=== PATIENT | female | born 1975 | race Two or more races ===

== ENCOUNTER 2023-06-17 20:59 | Outpatient (REF) | payer OTHER, SELFPAY ==
[2023-06-20 10:14] LABS: Age Gdln ACOG Testing Note (.); HPV Aptima Negative (Negative); IGP, Aptima HPV, rfx 16/18,45 Note (.)
== END 2023-06-17 21:00 | disposition home or self-care (01) ==
LOC: LAB 20:59
PROVIDERS: Visit Provider Obstetrics & Gynecology
DX: Z12.4 Encounter for screening for malignant neoplasm of cervix (principal)
CPT/HCPCS: 87624; G0145

== ENCOUNTER 2023-06-25 13:24 | Outpatient (OUT) | payer OTHER, SELFPAY ==
--- NOTE | 2023-06-25 13:28 | MM_ITS ---
Patient: MANJINDER BOB Exam Date: 06/25/2023 : 1975 Gender:F Ordering : DR Parminder Cohen . Admission #: [id number] Family : Non-Staff Physician Order #: [id number] CLICK HERE TO VIEW EXAM RADIOLOGY REPORT PROCEDURE: MM TOMOSYNTHESIS SCREENING BI COMPARISON: MG MAMM SCREEN 3D MYKE CAD, 06/19/2022. MG MAMM SCREEN MYKE W CAD, 03/31/2021. INDICATIONS: Z12.31 Calculator Name NCI Breast Cancer Risk Assessment Tool 5 Year Breast Cancer Risk 0.80% Lifetime Breast Cancer Risk 9.30% Personal Breast Cancer No Personal Ovarian Cancer No Treatments None Family Cancers Aunt-maternal with breast cancer at age 43. LOCATION: [facility] BREAST COMPOSITION: Heterogeneously dense,which may obscure small masses. FINDINGS: DIAGNOSTIC CATEGORY 1--NEGATIVE. RIGHT BREAST: No significant suspicious finding. No significant change has occurred. LEFT BREAST: No significant suspicious finding. No significant change has occurred. RECOMMENDATIONS: ROUTINE MAMMOGRAM AND CLINICAL EVALUATION IN 12 MONTHS. PLEASE NOTE: A NORMAL MAMMOGRAM DOES NOT EXCLUDE THE POSSIBILITY OF BREAST CANCER. A CLINICALLY SUSPICIOUS PALPABLE LUMP SHOULD BE BIOPSIED. Dictated by: Jw Howard M.D. on 06/25/2023 at 15:03 Approved by: Jw Howard M.D. on 06/25/2023 at 15:14
== END 2023-06-25 13:25 | disposition home or self-care (01) ==
LOC: MAMMO 13:24
PROVIDERS: Visit Provider Obstetrics & Gynecology
DX: Z12.31 Encounter for screening mammogram for malignant neoplasm of breast (principal); Z80.3 Family history of malignant neoplasm of breast
CPT/HCPCS: 77063; 77067

== ENCOUNTER 2023-08-06 13:48 | Emergency (ER) | payer OTHER, SELFPAY ==
[2023-08-06 13:52] VITALS: BP 142/92; PULSE 107; RESP 18; TEMP 36.6; O2SAT 100; BMI 24.5
--- NOTE | 2023-08-06 14:04 | ED.EXTPRO1 ---
HPI - Extremity Problem General Chief complaint: Extremity Problem, Nontraumatic Stated complaint: LOWER EXTREMITY PAIN LEFT LEG Time Seen by Provider: 08/06/23 13:57 Source: patient Mode of arrival: Wheelchair Limitations: no limitations History of Present Illness HPI Narrative: 47-year-old female past medical history left-sided sciatica presents with worsening symptoms for the past week. She states that she fell a month ago and ever since has had this pain in her left lower back that radiates down her leg. She went to her family doctor a week ago and was placed on diclofenac without any relief and then he called her in a Medrol Dosepak and still no relief. Hurts worse with movement. Pain radiates all the way down to her foot. denies hx CA or IVDU. denies bowel or bladder incontinence. denies fever, abd pain, dysuria. denies BLE swelling, temp or sensation changes. Related Data Home Medications Medication Instructions Recorded Confirmed atomoxetine 80 mg capsule 80 mg PO Q24H 08/06/23 08/06/23 diclofenac sodium 75 mg 75 mg PO Q12H 08/06/23 08/06/23 tablet,delayed release methylprednisolone 4 mg tablets in mg 08/06/23 a dose pack Previous Rx's Medication Instructions Recorded hydrocodone 5 mg-acetaminophen 325 1 tab PO Q4H PRN pain 3 days #12 08/06/23 mg tablet tabs tizanidine 4 mg tablet (Zanaflex) 4 mg PO TID PRN muscle spasticity 08/06/23 5 days #15 tabs Allergies Allergy/AdvReac Type Severity Reaction Status Date / Time No Known Drug Allergies Allergy Verified 08/06/23 13:52 Review of Systems ROS Status of ROS 10 or more systems reviewed and unremarkable except as noted in history and below [facility] Social History Smoking status: Never smoker Exam Narrative Exam Narrative: General: alert, no distress, talking in full an complete sentences skin: warm, dry, intact head: normocephalic, atraumatic eyes: EOMI, normal conjunctiva nose: nares patent neck: supple, trachea midline respiratory: non-labored extremities: FROM x 4, strength +5/5, capillary refill intact spine: Tender to left SI joint area, decreased range of motion due to pain, no step offs, no vertebral tenderness neuro: A&Ox3, sensory intact psych: appropriate mood and affect, cooperative Constitutional Vital Signs, click to edit/add: Last Vital Signs Temp 98 F 08/06/23 13:52 Pulse 90 08/06/23 14:23 Resp 18 08/06/23 14:23 BP 136/79 08/06/23 14:23 Pulse Ox 98 08/06/23 14:23 O2 Del Method Room Air 08/06/23 13:52 Course Vital Signs Vital signs: Vital Signs Temperature 98 F 08/06/23 13:52 Pulse Rate 107 H 08/06/23 13:52 Respiratory Rate 18 08/06/23 13:52 Blood Pressure 142/92 H 08/06/23 13:52 Pulse Oximetry 100 08/06/23 13:52 Oxygen Delivery Method Room Air 08/06/23 13:52 Temperature 98 F 08/06/23 13:52 Pulse Rate 90 08/06/23 14:23 Respiratory Rate 18 08/06/23 14:23 Blood Pressure 136/79 08/06/23 14:23 Pulse Oximetry 98 08/06/23 14:23 Oxygen Delivery Method Room Air 08/06/23 13:52 MDM - Extremity (Nontraumatic) MDM Narrative Medical decision making narrative: Likely sciatica and she is medicated with Dilaudid. Upon recheck, she states that she did get a moderately for pain and will be given another dose prior to discharge along with a prescription for Riner and Zanaflex. She is instructed to not take the Riner and Zanaflex together. She is to continue the Medrol Dosepak. F/u with PCP. afebrile, not tachypneic, not tachycardic, tolerating p.o., not hypoxic, non toxic appearing and ambulating at baseline and hemodynamically stable to be d/c. answered all questions. educated on SE of meds. pt in agreement with tx. educated when to return to ER. Discharge Plan Discharge Chief Complaint: Extremity Problem, Nontraumatic Clinical Impression: Radiculopathy Qualifiers: Spinal region: lumbosacral Qualified Code(s): M54.17 - Radiculopathy, lumbosacral region Patient Disposition: Home, Self-Care Condition: Good Mode of Transportation: Private Vehicle Prescriptions / Home Meds: New tizanidine [Zanaflex] 4 mg tablet 4 mg PO TID PRN (Reason: muscle spasticity) 5 Days Qty: 15 0RF hydrocodone-acetaminophen 5-325 mg tablet 1 tab PO Q4H PRN (Reason: pain) 3 Days Qty: 12 0RF No Action atomoxetine 80 mg capsule 80 mg PO Q24H diclofenac sodium 75 mg tablet,delayed release (DR/EC) 75 mg PO Q12H methylprednisolone 4 mg tablets,dose pack Instructions: Back Pain (ED) Additional Instructions: Do not take Riner and Zanaflex together as this can make you drowsy Stand Alone Forms: Portal Instructions Referrals: Physician,Non-Staff, MD [Primary Care Provider] - 1 week
[2023-08-06] MEDS: HYDROMORPHONE HCL 0.5 MG/0.5 ML SYRINGE IM ×2 (14:08→14:32)
[2023-08-06 14:23] VITALS: BP 136/79; PULSE 90; RESP 18; O2SAT 98
== END 2023-08-06 14:48 | disposition home or self-care (01) ==
PROVIDERS: Emergency Provider Emergency Medicine
DX: M54.17 Radiculopathy, lumbosacral region (principal)
CPT/HCPCS: 96372; 99284; J1170

== ENCOUNTER 2023-08-19 07:49 | Outpatient (OUT) | payer OTHER, SELFPAY ==
--- NOTE | 2023-08-19 08:00 | MR_ITS ---
[address] [address] Patient Name: MANJINDER BOB MRN: [id number] date: 1975 Sex: F Assigned Patient Location: MRI Current Patient Location: Accession/Order Number: [id number] Exam Date: 08/19/2023 08:07 Report Date: 08/19/2023 09:29 At the request of: SAUL LIZ Procedure: MR hip LT wo con EXAM: MR hip LT wo con REASON FOR EXAM: Degenerative Tear Of Acetabular Of Left Hip M24.152. TECHNIQUE: Multiplanar, multisequence imaging of the left hip was performed without contrast COMPARISON: No recent relevant imaging. FINDINGS: Study mildly degraded by motion. On small [id number]-dv-[id number] imaging of the left hip, left femur is well seated within the acetabulum. No fracture or AVN identified. There is mild perceived bony overgrowth of the superior lateral femoral head neck junction. No detached labral tear identified. Diminutive appearance of the anterior labrum potentially reflects labral degeneration. No high-grade chondrosis. No subchondral marrow changes. Trace effusion. Mild proximal left hamstring tendinosis. Tendinosis and low-grade partial tearing of the left gluteus medius insertion at the greater trochanter. No evidence of bursitis. The remaining left hip regional musculature is unremarkable. On large abiqz-xy-ccpf imaging, the bone marrow signal is heterogeneous, favoring to represent red marrow reconversion. Mild loss of normal intervertebral disc space height and signal at the L4-L5 level, incompletely characterized. The sacroiliac joints are congruent with mild joint space narrowing. The pubic symphysis is congruent. The right femur is well seated within the acetabulum without fracture or AVN. Tendinosis and low-grade partial tearing of the] gluteus medius insertion. The remaining right hip regional musculature is without muscle strain or tendon tear. Limited evaluation the pelvic viscera is without acute or suspicious abnormality. There is a left ovarian cyst or dominant follicle. MR/MR hip LT wo con IMPRESSION: 1. Mild perceived bony overgrowth of the superior lateral femoral head neck junction of the left hip with probable degenerative tearing of the anterior labrum. No detached labral tear identified. No fracture, AVN or high-grade chondrosis identified. 2. Bilateral gluteus medius insertional tendinosis with low-grade partial tearing. A complete rupture not identified. 3. Mild sacroiliac osteoarthritis. Electronically authenticated by: LEANDRO SILVERIO Date: 08/19/2023 09:29
--- OUTSIDE RECORDS SUMMARY | 2023-09-24 17:37 | XMS_ITS | CCD ---
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 Name Role Phone Samir Spain Attending Unavailable House, Bacilio Primary Care Unavailable ALBARO ., DR BARRETO Consulting Unavailable HOUSE, DR HUGHES Primary Care Unavailable ALBARO ., DR BARRETO Attending Unavailable ALBARO ., DR BARRETO Admitting Unavailable AMALIA, CYRUS Consulting Unavailable HOUSE, DR HUGHES Primary Care Unavailable ALBARO ., DR BARRETO Attending Unavailable ALBARO ., DR BARRETO Admitting Unavailable ALBARO ., DR BARRETO Consulting Unavailable ZiebJw shepard Consulting Unavailable ALBARO ., DR BARRETO Consulting Unavailable HOUSE, DR HUGHES Primary Care Unavailable ALBARO ., DR BARRETO Attending Unavailable ALBARO ., DR BARRETO Admitting Unavailable ZiebJw shepard Consulting Unavailable ALBARO ., DR BARRETO Consulting Unavailable HOUSE, DR HUGHES Primary Care Unavailable ALBARO ., DR BARRETO Attending Unavailable ALBARO ., DR BARRETO Admitting Unavailable DONNA, HARSH Consulting Unavailable KUCHIPUDI, SUMIT Consulting Unavailable CLEVELAND, DR HUGHES Primary Care Unavailable ALBARO ., DR BARRETO Attending Unavailable ALBARO ., DR BARRETO Admitting Unavailable ALBARO ., DR BARRETO Consulting Unavailable HOUSE, DR HUGHES Primary Care Unavailable ALBARO ., DR BARRETO Attending Unavailable ALBARO ., DR BARRETO Admitting Unavailable ALBARO ., DR BARRETO Consulting Unavailable C[place], DR HUGHES Primary Care Unavailable ALBARO ., DR BARRETO Attending Unavailable ALBARO ., DR BARRETO Admitting Unavailable ALBARO ., DR BARRETO Consulting Unavailable HOUSE, DR HUGHES Primary Care Unavailable ALBARO ., DR BARRETO Attending Unavailable ALBARO ., DR BARRETO Admitting Unavailable DONNA, HARSH Consulting Unavailable GEMBUS, EVANS Consulting Unavailable CLEVELAND, DR HUGHES Consulting Unavailable CLEVELAND, DR HUGHES Primary Care Unavailable HOUSE, DR HUGHES Attending Unavailable HOUSE, DR HUGHES Admitting Unavailable Florin MARTIN, Evans Hinds Attending Unavailable HOUSE, BACILIO Coppola Primary Care Unavailable HOUSE, BACILIO Coppola Primary Care Unavailable Florin MARTIN, Evans Hinds Attending Unavailable HOUSE, BACILIO P Primary Care Unavailable HOUSE, BACILIO P Attending Unavailable HOUSE, BACILIO P Primary Care Unavailable HOUSE, BACILIO P Attending Unavailable HOUSE, BACILIO P Admitting Unavailable HOUSE, BACILIO P Primary Care Unavailable Florin MARTIN, Evans Hinds Attending Unavailable Problems Active Problems Problem Classification Problem Date Documented Da te Episodic/Chronic Anxiety disorders (1 source) Anxiety disorder, unspecified; Translations: [ANXIETY DISORDER UNSPECIFIED] Onset: 03-02-2022 Chronic Esophageal disorders (1 source) Gastro-esophageal reflux disease without esophagitis; Translations: [GERD WITHOUT ESOPHAGITIS] Onset: 07-12-2022 Chronic Essential hypertension (1 source) Essential (primary) hypertension; Translations: [ESSENTIAL PRIMARY HYPERTENSION] Onset: 03-02-2022 Chronic Menstrual disorders (6 sources) Dysmenorrhea, unspecified; Translations: [Excessive and frequent menstruation with regular cycle] Onset: 07-06-2022 Chronic Other female genital disorders (5 sources) Abnormal uterine and vaginal bleeding, unspecified; Translations: [ABNORMAL UTERINE VAGINAL BLEED UNS] Onset: 08-24-2022 Chronic Other female genital disorders (1 source) Mittelschmerz; Translations: [MITTELSCHMERZ] Onset: 09-27-2022 Chronic Other screening for suspected conditions (not mental disorders or infectious disease) (1 source) Abnormal findings on diagnostic imaging of other specified body structures; Translations: [ABNORML FIND DX IMG OTH BODY STRUC] Onset: 08-24-2022 Chronic Thyroid disorders (5 sources) Hypothyroidism, unspecified; Translations: [HYPOTHYROIDISM UNSPECIFIED] Onset: 02-28-2022 Chronic Unclassified (4 sources) CONTACT W/AND (SUSP) EXPOS COVID-19; Translations: [CONTACT W/AND (SUSP) EXPOS COVID-19] Onset: 07-07-2022 Past or Other Problems Problem Classification Problem Date Documented Date Episodic/Chronic Abdominal hernia (1 source) Diaphragmatic hernia without obstruction or gangrene; Translations: [DIAPH HERNIA W/O OBST/GANGRENE] Onset: 07-12-2022 Episodic Abdominal pain (2 sources) Pelvic and perineal pain; Translations: [Unspecified abdominal pain] Onset: 08-24-2022 Episodic Deficiency and other anemia (1 source) Anemia, unspecified; Translations: [ANEMIA UNSPECIFIED] Onset: 09-27-2022 Episodic Immunizations and screening for infectious disease (1 source) Encounter for screening for human papillomavirus (HPV); Translations: [ENC SCREENING HUMAN PAPILLOMAVIRUS] Onset: 05-31-2022 Episodic Other aftercare (1 source) Other correction (current) drug therapy; Translations: [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] Onset: 09-27-2022 Episodic Other female genital disorders (1 source) Other specified noninflammatory disorders of cervix uteri; Translations: [OTH SPEC NONINFLAMM D/O CERV UTERI] Onset: 09-27-2022 Episodic Other female genital disorders (1 source) Polyp of corpus uteri; Translations: [POLYP OF CORPUS UTERI] Onset: 09-27-2022 Episodic Other female genital disorders (1 source) Other noninflammatory disorders of ovary, fallopian tube and broad ligament; Translations: [OTH NONINFL D/O OVARY TUBE AND BRD LIG] Onset: 09-27-2022 Episodic Other screening for suspected conditions (not mental disorders or infectious disease) (8 sources) Encounter for screening mammogram for malignant neoplasm of breast; Translations: [Encounter for screening for malignant neoplasm of cervix] Onset: 05-29-2022 Episodic Ovarian cyst (4 sources) Other ovarian cyst, left side; Translations: [OTHER OVARIAN CYST LEFT SIDE] Onset: 06-26-2022 Episodic Residual codes; unclassified (1 source) Acquired absence of other specified parts of digestive tract; Translations: [ACQ ABSENCE OTH PART DIGESTV TRACT] Onset: 09-27-2022 Episodic Residual codes; unclassified (1 source) Family history of malignant neoplasm of breast; Translations: [FAMILY HX MALIG NEOPLASM OF BREAST] Onset: 06-24-2022 Episodic Unclassified (1 source) CONTACT W/AND (SUSP) EXPOS COVID-19; Translations: [CONTACT W/AND (SUSP) EXPOS COVID-19] Onset: 07-05-2022 Results Test Name Value Interpretation Reference Range Facil ity Outside Recordson 08-22-2023 Outside Records [id number]#1.00[facility] Patient Provided Health Data on 08-01-2023 Patient Provided Health Data [id number]#1.00[facility] Patient Handouton 07-15-2023 Patient Handout [id number]#1.00[facility] BUNon 08-25-2022 Urea nitrogen [Mass/Vol] 6.0 mg/dL Critically low 7.0-18. 0 [facility] Comment on above: Performed By: #### B UN, CREA #### [facility] [address] [place] [address] Dr. Cyn Hermosillo CBC AUTO DIFFon 08-25-2022 BASO # 0.1 103/ul Normal 0.0-0.1 [facility] Comment on above: Performed By: #### C BC #### [facility] [address] [place] [address] Dr. Cyn Hermosillo Basophils/100 WBC (Bld) 0.4 % Normal 0.2-2.0 [facility] Comment on above: Performed By: #### C BC #### [facility] [address] [place] [address] Dr. Cyn Hermosillo EO # 0.1 103/ul Normal 0.0-0.7 [facility] Comment on above: Performed By: #### C BC #### [facility] [address] [place] [address] Dr. Cyn Hermosillo Eosinophils/100 WBC (Bld) 0.4 % Critically low 0.9-7. 0 [facility] Comment on above: Performed By: #### C BC #### [facility] [address] [place] [address] Dr. Cyn Hermosillo Erythrocyte distribution wid th (RBC) [Ratio] 13.2 % Normal 11.0-15.0 [facility] Comment on above: Performed By: #### C BC #### [facility] [address] [place] [address] Dr. Cyn Hermosillo Hematocrit (Bld) [Volume fraction] 27.4 % Critically low 36.0-48.0 [facility] Comment on above: Performed By: #### C BC #### [facility] [address] [place] [address] Dr. Cyn Hermosillo Hemoglobin (Bld) [Mass/Vol] 9.2 g/dL Critically low 12.0 -16.0 [facility] Comment on above: Performed By: #### C BC #### [facility] [address] [place] [address] Dr. Cyn Hermosillo IG # 0.06 10e3/ul Critically high 0.00-0.03 [facility] Comment on above: Performed By: #### C BC #### [facility] [address] [place] [address] Dr. Cyn Hermosillo IG % 0.4 % Normal 0.0-0.5 [facility] Comment on above: Performed By: #### C BC #### [facility] [address] [place] [address] Dr. Cyn Hermosillo LYMPH # 2.6 103/ul Normal 1.2-3.8 [facility] Comment on above: Performed By: #### C BC #### [facility] [address] [place] [address] Dr. Cyn Hermosillo Lymphocytes/100 WBC (Bld) 17.8 % Critically low 20.5-6 0.0 [facility] Comment on above: Performed By: #### C BC #### [facility] [address] [place] [address] Dr. Cyn Hermosillo MANUAL DIFF REQ NO Normal [facility] Comment on above: Performed By: #### C BC #### [facility] [address] [place] [address] Dr. Cyn Hermosillo MCH (RBC) [Entitic mass] 30.0 pg Normal 26.7-34.0 [facility] Comment on above: Performed By: #### C BC #### [facility] [address] [place] [address] Dr. Cyn Hermosillo MCHC (RBC) [Mass/Vol] 33.6 g/dL Normal 29.9-35.2 [facility] Comment on above: Performed By: #### C BC #### [facility] [address] [place] [address] Dr. Cyn Hermosillo MCV (RBC) [Entitic vol] 89.3 fL Normal 81.0-99.0 [facility] Comment on above: Performed By: #### C BC #### [facility] [address] [address] [address] Cyn Hermosillo MONO # 0.9 103/ul Critically high 0.3-0.8 [facility] Comment on above: Performed By: #### C BC #### [facility] [address] [place] [address] Dr. Cyn Hermosillo Monocytes/100 WBC (Bld) 6.2 % Normal 1.7-12.0 [facility] Comment on above: Performed By: #### C BC #### [facility] [address] [place] [address] Dr. Cyn Hermosillo NEUT # 10.8 103/ul Critically high 1.4-6.5 [facility] Comment on above: Performed By: #### C BC #### [facility] [address] [place] [address] Dr. Cyn Hermosillo Neutrophils/100 WBC (Bld) 74.8 % Normal 43.0-75.0 [facility] Comment on above: Performed By: #### C BC #### [facility] [address] [place] [address] Dr. Cyn Hermosillo Platelet mean volume (Bld) [ Entitic vol] 12.4 fL Normal 9.5-13.5 [facility] Comment on above: Performed By: #### C BC #### [facility] [address] [place] [address] Dr. Cyn Hermosillo PLT 174 103/ul Normal 150-450 [facility] Comment on above: Performed By: #### C BC #### [facility] [address] [place] [address] Dr. Cyn Hermosillo RBC 3.07 106/ul Critically low 4.20-5.40 [facility] Comment on above: Performed By: #### C BC #### [facility] [address] [place] [address] Dr. Cyn Hermosillo WBC 14.5 103/ul Critically high 4.0-11.0 [facility] Comment on above: Performed By: #### C BC #### [facility] [address] [place] [address] Dr. Cyn Hermosillo CREATININEon 08-25-2022 Creatinine [Mass/Vol] 0.49 mg/dL Critically low 0.55-1.02 [facility] Comment on above: Performed By: #### B UN, CREA #### [facility] [address] [place] [address] Dr. Cyn Hermosillo EGFR-AF PALESTINIAN >60 Normal >=60 [facility] Comment on above: Performed By: #### B UN, CREA #### [facility] [address] [place] [address] Dr. Cyn Hermosillo EGFR-NON AF PALESTINIAN >60 Normal >=60 [facility] Comment on above: Performed By: #### B UN, CREA #### [facility] [address] [place] [address] Dr. Cyn Hermosillo PREG HCG QUALon 08-24-2022 , QUAL Negative Normal NEGATIVE [facility] Comment on above: Performed By: #### C MP, TSH #### [facility] [address] [place] [address] Dr. Cyn Hermosillo CBC AUTO DIFFon 08-21-2022 BASO # 0.1 103/ul Normal 0.0-0.1 [facility] Comment on above: Performed By: #### C MP, TSH #### [facility] [address] [place] [address] Dr. Cyn Hermosillo Basophils/100 WBC (Bld) 1.0 % Normal 0.2-2.0 [facility] Comment on above: Performed By: #### C MP, TSH #### [facility] [address] [place] [address] Dr. Cyn Hermosillo EO # 0.1 103/ul Normal 0.0-0.7 [facility] Comment on above: Performed By: #### C MP, TSH #### [facility] [address] [place] [address] Dr. Cyn Hermosillo Eosinophils/100 WBC (Bld) 0.7 % Critically low 0.9-7. 0 [facility] Comment on above: Performed By: #### C MP, TSH #### [facility] [address] [place] [address] Dr. Cyn Hermosillo Erythrocyte distribution wid th (RBC) [Ratio] 13.4 % Normal 11.0-15.0 [facility] Comment on above: Performed By: #### C MP, TSH #### [facility] [address] [place] [address] Dr. Cyn Hermosillo Hematocrit (Bld) [Volume fraction] 34.9 % Critically low 36.0-48.0 [facility] Comment on above: Performed By: #### C MP, TSH #### [facility] [address] [place] [address] Dr. Cyn Hermosillo Hemoglobin (Bld) [Mass/Vol] 11.4 g/dL Critically low 12.0 -16.0 [facility] Comment on above: Performed By: #### C MP, TSH #### [facility] [address] [place] [address] Dr. Cyn Hermosillo IG # 0.02 10e3/ul Normal 0.00-0.03 [facility] Comment on above: Performed By: #### C MP, TSH #### [facility] [address] [place] [address] Dr. Cyn Hermosillo IG % 0.2 % Normal 0.0-0.5 [facility] Comment on above: Performed By: #### C MP, TSH #### [facility] [address] [place] [address] Dr. Cyn Hermosillo LYMPH # 3.2 103/ul Normal 1.2-3.8 [facility] Comment on above: Performed By: #### C MP, TSH #### [facility] [address] [address] [address] Cyn Hermosillo Lymphocytes/100 WBC (Bld) 35.9 % Normal 20.5-60.0 [facility] Comment on above: Performed By: #### C MP, TSH #### [facility] [address] [address] [address] Cyn Hermosillo MANUAL DIFF REQ NO Normal [facility] Comment on above: Performed By: #### C MP, TSH #### [facility] [address] [place] [address] Dr. Cyn Hermosillo MCH (RBC) [Entitic mass] 29.2 pg Normal 26.7-34.0 [facility] Comment on above: Performed By: #### C MP, TSH #### [facility] [address] [place] [address] Dr. Cyn Hermosillo MCHC (RBC) [Mass/Vol] 32.7 g/dL Normal 29.9-35.2 [facility] Comment on above: Performed By: #### C MP, TSH #### [facility] [address] [place] [address] Dr. Cyn Hermosillo MCV (RBC) [Entitic vol] 89.3 fL Normal 81.0-99.0 [facility] Comment on above: Performed By: #### C MP, TSH #### [facility] [address] [place] [address] Dr. Cyn Hermosillo MONO # 0.7 103/ul Normal 0.3-0.8 [facility] Comment on above: Performed By: #### C MP, TSH #### [facility] [address] [place] [address] Dr. Cyn Hermosillo Monocytes/100 WBC (Bld) 8.2 % Normal 1.7-12.0 [facility] Comment on above: Performed By: #### C MP, TSH #### [facility] [address] [place] [address] Dr. Cyn Hermosillo NEUT # 4.8 103/ul Normal 1.4-6.5 [facility] Comment on above: Performed By: #### C MP, TSH #### [facility] [address] [place] [address] Dr. Cyn Hermosillo Neutrophils/100 WBC (Bld) 54.0 % Normal 43.0-75.0 [facility] Comment on above: Performed By: #### C MP, TSH #### [facility] [address] [place] [address] Dr. Cyn Hermosillo Platelet mean volume (Bld) [ Entitic vol] 11.9 fL Normal 9.5-13.5 [facility] Comment on above: Performed By: #### C MP, TSH #### [facility] [address] [place] [address] Dr. Cyn Hermosillo PLT 242 103/ul Normal 150-450 [facility] Comment on above: Performed By: #### C MP, TSH #### [facility] [address] [place] [address] Dr. Cyn Hermosillo RBC 3.91 106/ul Critically low 4.20-5.40 [facility] Comment on above: Performed By: #### C MP, TSH #### [facility] [address] [place] [address] Dr. Cyn Hermosillo WBC 8.9 103/ul Normal 4.0-11.0 [facility] Comment on above: Performed By: #### C MP, TSH #### [facility] [address] [place] [address] Dr. Cyn Hermosillo [facility] 08[facility]07 SARS-CoV-2 (COVID-19) RNA SHELLIE+probe Ql (Unsp spec) Not detected Normal NOT DETECTED [facility] Comment on above: Result Comment: This test is not yet approved or cleared by the [place] FDA. When there are no FDA-approved or cleared tests available, and other criteria are met, FDA can make tests available under an emergency access mechanism called an Emergency Use Authorization (EUA). The EUA for this test is supported by the Ribbon Sweat[employer] Operator of Health and Human Service's (HHS's) declaration that circumstances exist to justify the emergency use of in vitro diagnostics for the detection and/or diagnosis of the virus that causes COVID-19. This EUA will remain in effect (meaning this test can be used) for the duration of the COVID-19 declaration justifying emergency of IVDs, unless it is terminated or revoked by FDA (after which the test may no longer be used). When diagnostic testing is negative, the possibility of a false negative should be considered in the context of a patient's recent exposures and the presence of clinical signs and symptoms consistent with SARS-CoV-2. Performed By: #### C VDTBH #### [facility] [address] [place] [address] Dr. Cyn Hermosillo PROF CHEM 8 (BAS METB)on Anion gap [Moles/Vol] 9.6 mmol/L Normal [facility] Comment on above: Performed By: #### C MP, TSH #### [facility] [address] [place] [address] Dr. Cyn Hermosillo Calcium [Mass/Vol] 8.6 mg/dL Normal 8.5-10.1 [facility] Comment on above: Performed By: #### C MP, TSH #### [facility] [address] [place] [address] Dr. Cyn Hermosillo Chloride [Moles/Vol] 102 mmol/L Normal 98-107 [facility] Comment on above: Performed By: #### C MP, TSH #### [facility] [address] [place] [address] Dr. Cyn Hermosillo CO2 [Moles/Vol] 27.1 mmol/L Normal 21.0-32.0 [facility] Comment on above: Performed By: #### C MP, TSH #### [facility] [address] [place] [address] Dr. Cyn Hermosillo Creatinine [Mass/Vol] 0.46 mg/dL Critically low 0.55-1.02 [facility] Comment on above: Performed By: #### C MP, TSH #### [facility] [address] [place] [address] Dr. Cyn Hermosillo EGFR-AF PALESTINIAN >60 Normal >=60 [facility] Comment on above: Performed By: #### C MP, TSH #### [facility] [address] [address] [address] Cyn Hermosillo EGFR-NON AF PALESTINIAN >60 Normal >=60 [facility] Comment on above: Performed By: #### C MP, TSH #### [facility] [address] [address] [address] Cyn Hermosillo Glucose [Mass/Vol] 115 mg/dL Critically high 74-106 [facility] Comment on above: Performed By: #### C MP, TSH #### [facility] [address] [address] [address] Cyn Hermosillo Potassium [Moles/Vol] 3.7 mmol/L Normal 3.5-5.1 [facility] Comment on above: Performed By: #### C MP, TSH #### [facility] [address] [address] [address] Cyn Hermosillo Sodium [Moles/Vol] 135 mmol/L Critically low 136-145 [facility] Comment on above: Performed By: #### C MP, TSH #### [facility] [address] [address] [address] Cyn Hermosillo Urea nitrogen [Mass/Vol] 15.0 mg/dL Normal 7.0-18.0 [facility] Comment on above: Performed By: #### C MP, TSH #### [facility] [address] [address] [address] Cyn Hermosillo Urea nitrogen/Creatinine [Mass ratio] 32.6 mg/mg Normal [facility] Comment on above: Performed By: #### C MP, TSH #### [facility] [address] [address] [address] Cyn Hermosillo TYPE AND SCREENon 08-21-2022 TYPE AND SCREEN Negative Normal [facility] Comment on above: Performed By: #### C MP, TSH #### [facility] [address] [address] [address] Cyn Hermosillo CBC AUTO DIFFon 07-06-2022 BASO # 0.1 103/ul Normal 0.0-0.1 [facility] Comment on above: Performed By: #### C MP, TSH #### [facility] [address] [place] [address] Dr. Cyn Hermosillo Basophils/100 WBC (Bld) 0.7 % Normal 0.2-2.0 [facility] Comment on above: Performed By: #### C MP, TSH #### [facility] [address] [place] [address] Dr. Cyn Hermosillo EO # 0.1 103/ul Normal 0.0-0.7 [facility] Comment on above: Performed By: #### C MP, TSH #### [facility] [address] [place] [address] Dr. Cyn Hermosillo Eosinophils/100 WBC (Bld) 0.6 % Critically low 0.9-7. 0 [facility] Comment on above: Performed By: #### C MP, TSH #### [facility] [address] [place] [address] Dr. Cyn Hermosillo Erythrocyte distribution wid th (RBC) [Ratio] 13.2 % Normal 11.0-15.0 [facility] Comment on above: Performed By: #### C MP, TSH #### [facility] [address] [place] [address] Dr. Cyn Hermosillo Hematocrit (Bld) [Volume fraction] 34.3 % Critically low 36.0-48.0 [facility] Comment on above: Performed By: #### C MP, TSH #### [facility] [address] [place] [address] Dr. Cyn Hermosillo Hemoglobin (Bld) [Mass/Vol] 11.4 g/dL Critically low 12.0 -16.0 [facility] Comment on above: Performed By: #### C MP, TSH #### [facility] [address] [place] [address] Dr. Cyn Hermosillo IG # 0.04 10e3/ul Critically high 0.00-0.03 [facility] Comment on above: Performed By: #### C MP, TSH #### [facility] [address] [address] [address] Cyn Hermosillo IG % 0.4 % Normal 0.0-0.5 [facility] Comment on above: Performed By: #### C MP, TSH #### [facility] [address] [address] [address] Cyn Hermosillo LYMPH # 2.7 103/ul Normal 1.2-3.8 [facility] Comment on above: Performed By: #### C MP, TSH #### [facility] [address] [place] [address] Dr. Cyn Hermosillo Lymphocytes/100 WBC (Bld) 25.0 % Normal 20.5-60.0 [facility] Comment on above: Performed By: #### C MP, TSH #### [facility] [address] [place] [address] Dr. Cyn Hermosillo MANUAL DIFF REQ NO Normal [facility] Comment on above: Performed By: #### C MP, TSH #### [facility] [address] [place] [address] Dr. Cyn Hermosillo MCH (RBC) [Entitic mass] 30.2 pg Normal 26.7-34.0 [facility] Comment on above: Performed By: #### C MP, TSH #### [facility] [address] [place] [address] Dr. Cyn Hermosillo MCHC (RBC) [Mass/Vol] 33.2 g/dL Normal 29.9-35.2 [facility] Comment on above: Performed By: #### C MP, TSH #### [facility] [address] [place] [address] Dr. Cyn Hermosillo MCV (RBC) [Entitic vol] 91.0 fL Normal 81.0-99.0 [facility] Comment on above: Performed By: #### C MP, TSH #### [facility] [address] [place] [address] Dr. Cyn Hermosillo MONO # 0.7 103/ul Normal 0.3-0.8 [facility] Comment on above: Performed By: #### C MP, TSH #### [facility] [address] [address] [address] Cyn Hermosillo Monocytes/100 WBC (Bld) 6.8 % Normal 1.7-12.0 [facility] Comment on above: Performed By: #### C MP, TSH #### [facility] [address] [place] [address] Dr. Cyn Hermosillo NEUT # 7.2 103/ul Critically high 1.4-6.5 [facility] Comment on above: Performed By: #### C MP, TSH #### [facility] [address] [place] [address] Dr. Cyn Hermosillo Neutrophils/100 WBC (Bld) 66.5 % Normal 43.0-75.0 [facility] Comment on above: Performed By: #### C MP, TSH #### [facility] [address] [place] [address] Dr. Cyn Hermosillo Platelet mean volume (Bld) [ Entitic vol] 12.0 fL Normal 9.5-13.5 [facility] Comment on above: Performed By: #### C MP, TSH #### [facility] [address] [place] [address] Dr. Cyn Hermosillo PLT 219 103/ul Normal 150-450 [facility] Comment on above: Performed By: #### C MP, TSH #### [facility] [address] [place] [address] Dr. Cyn Hermosillo RBC 3.77 106/ul Critically low 4.20-5.40 [facility] Comment on above: Performed By: #### C MP, TSH #### [facility] [address] [place] [address] Dr. Cyn Hermosillo WBC 10.8 103/ul Normal 4.0-11.0 [facility] Comment on above: Performed By: #### C MP, TSH #### [facility] [address] [place] [address] Dr. Cyn Hermosillo PREG HCG QUALon 07-06-2022 , QUAL Negative Normal NEGATIVE [facility] Comment on above: Performed By: #### C MP, TSH #### [facility] [address] [place], [place] [address] Dr. Cyn Hermosillo Covid-19 PCR ([facility])on 06-08 SARS-CoV-2 (COVID-19) RNA SHELLIE+probe Ql (Unsp spec) Not detected Normal NOT DETECTED [facility] Comment on above: Result Comment: This test is not yet approved or cleared by the [place] FDA. When there are no FDA-approved or cleared tests available, and other criteria are met, FDA can make tests available under an emergency access mechanism called an Emergency Use Authorization (EUA). The EUA for this test is supported by the [employer] Operator of Health and Human Service's (HHS's) declaration that circumstances exist to justify the emergency use of in vitro diagnostics for the detection and/or diagnosis of the virus that causes COVID-19. This EUA will remain in effect (meaning this test can be used) for the duration of the COVID-19 declaration justifying emergency of IVDs, unless it is terminated or revoked by FDA (after which the test may no longer be used). When diagnostic testing is negative, the possibility of a false negative should be considered in the context of a patient's recent exposures and the presence of clinical signs and symptoms consistent with SARS-CoV-2. Performed By: #### C VDTB #### [facility] [address] [place], [place] [address] Dr. Cyn Hermosillo MRI PELVIS WO W CONon 2021 MRI PELVIS WO W CON EXAMINATION: MRI PEL VIS WO W CON HISTORY: Cyst of left ovary COMPARISON: Ultrasound pelvis 06/19/2022 TECHNIQUE: A comprehensive examination was performed utilizing a variety of imaging planes and imaging parameters to optimize visualization of suspected pathology. Images were obtained with and without Dotarem contrast. FINDINGS: UTERUS: Size is 9.2 x 6.4 x 4.7 cm with oval 1.7 cm circumscribed mass within the posterior wall favoring a leiomyoma. Endometrial thickness is at upper limits of normal, 14 mm. No appreciable mass or polyp. OVARIES: Right ovary contains several tiny follicles. Left ovary contains a 16 x 12 x 12 mm complex cyst along with several tiny follicles. CUL-DE-SAC: Normal. No fluid or mass. LYMPH NODES: Normal. No adenopathy. BLADDER: Normal. No focal wall thickening or mass. BONES: Normal. No bony lesion or fracture. OTHER: Negative. IMPRESSION: 1. Endometrial thickness is at upper limits of normal, but no appreciable mass, polyp, or suspicious findings to correspond to ultrasound findings. 2. Slightly irregular structure within left ovary most suggestive of a complex cyst. No abnormal enhancement or convincing mass. Electronically authenticated by: JW JOHN Date: 2022-06-26 12:06 Normal The [facility] MG MAMM SCREEN 3D MYKE CADon 06-19-2022 MG MAMM SCREEN 3D MYKE CAD Patient: MANJINDER BOB Exam Date: 06/19/2022 : 1975 Gender:F Ordering : DR MARY LOU COHEN . Admission #: [id number] Family : Order #: [id number] CLICK HERE TO VIEW EXAM RADIOLOGY REPORT PROCEDURE: MAMMOGRAM SCREENING 3D BILATERAL CAD COMPARISON: MG MAMM SCREEN MYKE W CAD, 03/31/2021. INDICATIONS: Screening mammography Calculator Name NCI Breast Cancer Risk Assessment Tool 5 Year Breast Cancer Risk 0.70% Lifetime Breast Cancer Risk 9.40% Personal Breast Cancer No Personal Ovarian Cancer No Treatments None Family Cancers Aunt-maternal with breast cancer at age 43. LOCATION: [facility] BREAST COMPOSITION: Heterogeneously dense,which may obscure small masses. FINDINGS: DIAGNOSTIC CATEGORY 2--BENIGN FINDING. NO CHANGE FROM COMPARISON. Scattered benign-appearing nodules are present. Scattered benign-appearing calcifications are present. Scattered benign-appearing lymph nodes are present. RIGHT BREAST: No significant suspicious finding. LEFT BREAST: No significant suspicious finding. RECOMMENDATIONS: ROUTINE MAMMOGRAM AND CLINICAL EVALUATION IN 12 MONTHS. PLEASE NOTE: A NORMAL MAMMOGRAM DOES NOT EXCLUDE THE POSSIBILITY OF BREAST CANCER. A CLINICALLY SUSPICIOUS PALPABLE LUMP SHOULD BE BIOPSIED. Dictated by: Cyrus Holland MD on 06/19/2022 at 13:45 Approved by: Cyrus Holland MD on 06/19/2022 at 13:46 Normal [facility] US PELVIS AND TRANSVAGon US PELVIS AND TRANSVAG EXAMINATION: US P RORY AND TRANSVAG HISTORY: Pelvic and perineal pain ; left pelvic pain for 4 months COMPARISON: Ultrasound pelvis 12/10/2019 TECHNIQUE: Transabdominal and transvaginal sonographic examination. FINDINGS: UTERUS: Stable 1.5 cm rounded heterogeneous hypoechoic mass within posterior myometrium favoring a leiomyoma. Uterus size: 9.1 x 5.0 x 5.9 cm ENDOMETRIUM: Abnormally thickened endometrium. Within posterior fundal endometrium is a geographic shaped 8 x 8 x 6 mm hypoechoic vascular structure/mass. Endometrial thickness: 23 mm RIGHT OVARY: Contains a 1.4 cm benign-appearing follicle/cyst. Duplex Doppler demonstrates normal waveform and flow; resistive index 0.3. Ovary size: 2.9 x 1.7 x 1.7 cm LEFT OVARY: Contains a 2.0 x 1.8 x 1.3 cm oval cystic structure with thickened oconnell with lobular margins. Duplex Doppler demonstrates normal waveform and flow; resistive index 0.5. Ovary size: 3.5 x 2.4 x 2.1 cm CUL-DE-SAC: Unremarkable. No significant free fluid. BLADDER: Unremarkable. OTHER: None. IMPRESSION: 1. Abnormal thickening of the endometrium (23 mm), with a geographic shape/spiculated, vascular mass within the posterior fundal endometrium of uncertain etiology but concerning for neoplasm. 2. Complex left ovarian cyst. There has been a chronic complex, heterogeneous cyst versus mass within left ovary, but this appears to represent more of a cyst on today's study with irregular oconnell than a mass. Consider follow-up ultrasound evaluation in 6 weeks to document stability versus change versus MRI of pelvis for further evaluation of findings in #1 and #2. Electronically authenticated by: JW JOHN Date: 2022-06-19 11:06 Normal The [facility] l PAP ACOG PANEL 2: 30 to 65on 06-04-2022 . . Normal [facility] Comment on above: Result Comment: Perf ormed at: BA Performed By: #### [id number] #### [facility] [address] [address] [address] Cyn Hermosillo Age Gdln ACOG Testing 30-65 Normal [facility] Comment on above: Performed By: #### [id number] #### [facility] [address] [place], [place] [address] Dr. Cyn Hermosillo DIAGNOSIS: Comment Normal [facility] Comment on above: Result Comment: NEGA TIVE FOR INTRAEPITHELIAL LESION OR MALIGNANCY. CELLULAR CHANGES ASSOCIATED WITH INFLAMMATION ARE PRESENT. Performed at: BA Performed By: #### [id number] #### [facility] [address] [place] [address] Dr. Cyn Hermosillo HPV Aptima Negative Normal Negative [facility] Comment on above: Result Comment: This nucleic acid amplification test detects fourteen high-risk HPV types (16,18,31,33,35,39,45,51,52,56,58,59,66,68) without differentiation. Performed at: =G Performed By: #### [id number] #### [facility] [address] [place] [address] Dr. Cyn Hermosillo Methodology: Comment Normal [facility] Comment on above: Result Comment: This liquid based ThinPrep(R) pap test was screened with the use of an image guided system. Performed at: WB Performed By: #### [id number] #### [facility] [address] [place] [address] Dr. Cyn Hermosillo Note: Comment Normal [facility] Comment on above: Result Comment: The Pap smear is a screening test designed to aid in the detection of premalignant and malignant conditions of the uterine cervix. It is not a diagnostic procedure and should not be used as the sole means of detecting cervical cancer. Both false-positive and false-negative reports do occur. . Performed at: WB Performed By: #### [id number] #### [facility] [address] [place] [address] Dr. Cyn Hermosillo Performed by: Comment Normal [facility] Comment on above: Result Comment: Ramos Leo, Contracting Specialist Performed at: BA Performed By: #### [id number] #### [facility] [address] [place] [address] Dr. Cyn Hermosillo Specimen adequacy: Comment Normal The [facility] Comment on above: Result Comment: Sati sfactory for evaluation. Endocervical and/or squamous metaplastic cells (endocervical component) are present. Performed at: BA Performed By: #### [id number] #### [facility] [address] [place] [address] Dr. Cyn Hermosillo T4 LABCORPon 03-02-2022 T4 [Mass/Vol] 8.2 ug/dL Normal 4.5-12.0 [facility] Comment on above: Performed By: #### T 4LC #### [facility] [address] [place] [address] Dr. Cyn Hermosillo CBC AUTO DIFFon 02-28-2022 BASO # 0.1 103/ul Normal 0.0-0.1 [facility] Comment on above: Performed By: #### C BC #### [facility] [address] [place] [address] Dr. Cyn Hermosillo Basophils/100 WBC (Bld) 0.7 % Normal 0.2-2.0 [facility] Comment on above: Performed By: #### C BC #### [facility] [address] [place] [address] Dr. Cyn Hermosillo EO # 0.1 103/ul Normal 0.0-0.7 [facility] Comment on above: Performed By: #### C BC #### [facility] [address] [place] [address] Dr. Cyn Hermosillo Eosinophils/100 WBC (Bld) 0.7 % Critically low 0.9-7. 0 [facility] Comment on above: Performed By: #### C BC #### [facility] [address] [place] [address] Dr. Cyn Hermosillo Erythrocyte distribution wid th (RBC) [Ratio] 13.3 % Normal 11.0-15.0 The [facility] Comment on above: Performed By: #### C BC #### [facility] [address] [place] [address] Dr. Cyn Hermosillo Hematocrit (Bld) [Volume fraction] 36.4 % Normal 3 6.0-48.0 [facility] Comment on above: Performed By: #### C BC #### [facility] [address] [place] [address] Dr. Cyn Hermosillo Hemoglobin (Bld) [Mass/Vol] 11.8 g/dL Critically low 12.0 -16.0 [facility] Comment on above: Performed By: #### C BC #### [facility] [address] [address] [address] Cyn Hermosillo IG # 0.03 10e3/ul Normal 0.00-0.03 [facility] Comment on above: Performed By: #### C BC #### [facility] [address] [address] [address] Cyn Hermosillo IG % 0.3 % Normal 0.0-0.5 [facility] Comment on above: Performed By: #### C BC #### [facility] [address] [place] [address] Dr. Cyn Hermosillo LYMPH # 3.2 103/ul Normal 1.2-3.8 [facility] Comment on above: Performed By: #### C BC #### [facility] [address] [place] [address] Dr. Cyn Hermosillo Lymphocytes/100 WBC (Bld) 32.7 % Normal 20.5-60.0 [facility] Comment on above: Performed By: #### C BC #### [facility] [address] [place] [address] Dr. Cyn Hermosillo MANUAL DIFF REQ NO Normal [facility] Comment on above: Performed By: #### C BC #### [facility] [address] [place] [address] Dr. Cyn Hermosillo MCH (RBC) [Entitic mass] 29.4 pg Normal 26.7-34.0 [facility] Comment on above: Performed By: #### C BC #### [facility] [address] [place] [address] Dr. Cyn Hermosillo MCHC (RBC) [Mass/Vol] 32.4 g/dL Normal 29.9-35.2 [facility] Comment on above: Performed By: #### C BC #### [facility] [address] [place] [address] Dr. Cyn Hermosillo MCV (RBC) [Entitic vol] 90.8 fL Normal 81.0-99.0 [facility] Comment on above: Performed By: #### C BC #### [facility] [address] [address] [address] Cyn Hermosillo MONO # 0.7 103/ul Normal 0.3-0.8 [facility] Comment on above: Performed By: #### C BC #### [facility] [address] [place] [address] Dr. Cyn Hermosilol Monocytes/100 WBC (Bld) 7.2 % Normal 1.7-12.0 [facility] Comment on above: Performed By: #### C BC #### [facility] [address] [place] [address] Dr. Cyn Hermosillo NEUT # 5.7 103/ul Normal 1.4-6.5 [facility] Comment on above: Performed By: #### C BC #### [facility] [address] [place] [address] Dr. Cyn Hermosillo Neutrophils/100 WBC (Bld) 58.4 % Normal 43.0-75.0 [facility] Comment on above: Performed By: #### C BC #### [facility] [address] [place] [address] Dr. Cyn Hermosillo Platelet mean volume (Bld) [ Entitic vol] 11.9 fL Normal 9.5-13.5 [facility] Comment on above: Performed By: #### C BC #### [facility] [address] [place] [address] Dr. Cyn Hermosillo PLT 217 103/ul Normal 150-450 [facility] Comment on above: Performed By: #### C BC #### [facility] [address] [place] [address] Dr. Cyn Hermosillo RBC 4.01 106/ul Critically low 4.20-5.40 [facility] Comment on above: Performed By: #### C BC #### [facility] [address] [place] [address] Dr. Cyn Hermosillo WBC 9.8 103/ul Normal 4.0-11.0 [facility] Comment on above: Performed By: #### C BC #### [facility] [address] [address] [address] Cyn Hermosillo PROF 14(COMP METB)on 022 Albumin [Mass/Vol] 3.6 g/dL Normal 3.4-5.0 [facility] Comment on above: Performed By: #### C MP, TSH #### [facility] [address] [address] [address] Cyn Hermosillo Albumin/Globulin [Mass ratio] 1.0 {ratio} Normal [facility] Comment on above: Performed By: #### C MP, TSH #### [facility] [address] [address] [address] Cyn Hermosillo ALP [Catalytic activity/Vol] 59 U/L Normal 46-116 [facility] Comment on above: Performed By: #### C MP, TSH #### [facility] [address] [address] [address] Cyn Hermosillo ALT [Catalytic activity/Vol] 16 U/L Normal 14-59 [facility] Comment on above: Performed By: #### C MP, TSH #### [facility] [address] [address] [address] Cyn Hermosillo Anion gap [Moles/Vol] 11.0 mmol/L Normal [facility] Comment on above: Performed By: #### C MP, TSH #### [facility] [address] [address] [address] Cyn Hermosillo AST [Catalytic activity/Vol] U/L Critically low 15- 37 [facility] Comment on above: Performed By: #### C MP, TSH #### [facility] [address] [address] [address] Cyn Hermosillo Bilirubin [Mass/Vol] 0.2 mg/dL Normal 0.2-1.0 [facility] Comment on above: Performed By: #### C MP, TSH #### [facility] [address] [address] [address] Cyn Hermosillo Calcium [Mass/Vol] 8.5 mg/dL Normal 8.5-10.1 [facility] Comment on above: Performed By: #### C MP, TSH #### [facility] [address] [address] [address] Cyn Hermosillo Chloride [Moles/Vol] 104 mmol/L Normal 98-107 [facility] Comment on above: Performed By: #### C MP, TSH #### [facility] [address] [address] [address] Cyn Hermosillo CO2 [Moles/Vol] 27.9 mmol/L Normal 21.0-32.0 [facility] Comment on above: Performed By: #### C MP, TSH #### [facility] [address] [address] [address] Cyn Hermosillo Creatinine [Mass/Vol] 0.49 mg/dL Critically low 0.55-1.02 [facility] Comment on above: Performed By: #### C MP, TSH #### [facility] [address] [address] [address] Cyn Hermosillo EGFR-AF PALESTINIAN >60 Normal >=60 [facility] Comment on above: Performed By: #### C MP, TSH #### [facility] [address] [address] [address] Cyn Hermosillo EGFR-NON AF PALESTINIAN >60 Normal >=60 [facility] Comment on above: Performed By: #### C MP, TSH #### [facility] [address] [address] [address] Cyn Hermosillo Globulin (S) [Mass/Vol] 3.7 g/dL Normal [facility] Comment on above: Performed By: #### C MP, TSH #### [facility] [address] [address] [address] Cyn Hermosillo Glucose [Mass/Vol] 109 mg/dL Critically high 74-106 [facility] Comment on above: Performed By: #### C MP, TSH #### [facility] [address] [address] [address] Cyn Hermosillo Potassium [Moles/Vol] 3.9 mmol/L Normal 3.5-5.1 [facility] Comment on above: Performed By: #### C MP, TSH #### [facility] [address] [place] [address] Dr. Cyn Hermosillo Protein [Mass/Vol] 7.3 g/dL Normal 6.4-8.2 [facility] Comment on above: Performed By: #### C MP, TSH #### [facility] [address] [place] [address] Dr. Cyn Hermosillo Sodium [Moles/Vol] 139 mmol/L Normal 136-145 [facility] Comment on above: Performed By: #### C MP, TSH #### [facility] [address] [place] [address] Dr. Cyn Hermosillo Urea nitrogen [Mass/Vol] 15.0 mg/dL Normal 7.0-18.0 [facility] Comment on above: Performed By: #### C MP, TSH #### [facility] [address] [place] [address] Dr. Cyn Hermosillo Urea nitrogen/Creatinine [Mass ratio] 30.6 mg/mg Normal [facility] Comment on above: Performed By: #### C MP, TSH #### [facility] [address] [place] [address] Dr. Cyn Hermosillo TSHon 02-28-2022 TSH 0.399 uIU/mL Normal 0.358-3.740 [facility] Comment on above: Performed By: #### C MP, TSH #### [facility] [address] [place] [address] Dr. Cyn Hermosillo TSH RANGE SEE BELOW Normal [facility] Comment on above: Result Comment: <0.3 4 UIU/ml HYPERTHYROID 0.34-5.60 UIU/ml EUTHYROID >5.60 UIU/ml HYPOTHYROID Performed By: #### C MP, TSH #### [facility] [address] [place] [address] Dr. Cyn Hermosillo Complete Blood Count Auto Di ffon 11-04-2018 Basophils #/vol (Bld) 0.1 10*3/uL Normal 0.0-0.2 [facility] Comment on above: Order Comment: FAX R ESULTS TO [phone] Result Comment: PERF ORMED BY: [place] [id number] PATHOLOGIST SURGERY SCHEDULING COORDINATOR MAITE ROMAN M.D. Performed By: #### C BC #### [address] Basophils/100 WBC (Bld) 0.9 % Normal . [facility] Comment on above: Order Comment: FAX R ESULTS TO [phone] Performed By: #### C BC #### [address] Eosinophils #/vol (Bld) 0.1 10*3/uL Normal 0.0-0.45 [facility] Comment on above: Order Comment: FAX R ESULTS TO [phone] Performed By: #### C BC #### [address] Eosinophils/100 WBC (Bld) 1.2 % Normal . [facility] Comment on above: Order Comment: FAX R ESULTS TO [phone] Performed By: #### C BC #### [address] Erythrocyte distribution wid th Ratio (RBC) 13.2 % Normal 11.9-15.3 [facility] Comment on above: Order Comment: FAX R ESULTS TO [phone] Performed By: #### C BC #### [address] Hematocrit Volume Fraction (Bld) 36.0 % Normal 34.0-46.4 [facility] Comment on above: Order Comment: FAX R ESULTS TO [phone] Performed By: #### C BC #### [address] Hemoglobin mass conc (Bld) 12.5 g/dL Normal 11.8-15.4 [facility] Comment on above: Order Comment: FAX R ESULTS TO [phone] Performed By: #### C BC #### [facility] [address] [place] [address] Lymphocytes #/vol (Bld) 3.7 10*3/uL Normal 1.00-4.8 [facility] Comment on above: Order Comment: FAX R ESULTS TO [phone] Performed By: #### C BC #### [facility] [address] [place] [address] Lymphocytes/100 WBC (Bld) 37.6 % Normal . [facility] Comment on above: Order Comment: FAX R ESULTS TO [phone] Performed By: #### C BC #### [facility] [address] [place] [address] MCH Entitic mass (RBC) 31.6 pg Normal 24.7-34.3 [facility] Comment on above: Order Comment: FAX R ESULTS TO [phone] Performed By: #### C BC #### [facility] [address] [place] [address] MCH Entitic mass (RBC) 34.6 g/dL Normal 32.0-35.0 [facility] Comment on above: Order Comment: FAX R ESULTS TO [phone] Performed By: #### C BC #### [facility] [address] [place] [address] MCV Entitic volume (RBC) 91.1 fL Normal 80-100 [facility] Comment on above: Order Comment: FAX R ESULTS TO [phone] Performed By: #### C BC #### [facility] [address] [place] [address] Monocytes #/vol (Bld) 0.7 10*3/uL Normal 0.0-0.8 [facility] Comment on above: Order Comment: FAX R ESULTS TO [phone] Performed By: #### C BC #### [facility] [address] [place] [address] Monocytes/100 WBC (Bld) 7.5 % Normal . [facility] Comment on above: Order Comment: FAX R ESULTS TO [phone] Performed By: #### C BC #### [facility] [address] [place] [address] Neutrophils #/vol (Bld) 5.2 10*3/uL Normal 1.8-7.7 [facility] Comment on above: Order Comment: FAX R ESULTS TO [phone] Performed By: #### C BC #### [facility] [address] [place] [address] Neutrophils/100 WBC (Bld) 52.8 % Normal . [facility] Comment on above: Order Comment: FAX R ESULTS TO [phone] Performed By: #### C BC #### [address] Platelet mean volume Entitic volume (Bld) 10.2 fL Normal 6.3-10.7 [facility] Comment on above: Order Comment: FAX R ESULTS TO [phone] Performed By: #### C BC #### [facility] [address] [place] [address] Platelets #/vol (Bld) 244 10*3/uL Normal 150-450 [facility] Comment on above: Order Comment: FAX R ESULTS TO [phone] Performed By: #### C BC #### [facility] [address] [place] [address] RBC #/vol (Bld) 3.95 10*6/uL Normal 3.60-5.00 [facility] Comment on above: Order Comment: FAX R ESULTS TO [phone] Performed By: #### C BC #### [facility] [address] [place] [address] WBC #/vol (Bld) 9.9 10*3/uL Normal 3.8-11.6 [facility] Comment on above: Order Comment: FAX R ESULTS TO [phone] Performed By: #### C BC #### [address] [place] [address] [facility] Encounters Encounter Date Encounter Type Care Provider Facility Start: 08-22-2023 End: 08-23-2023 ambulatory Evans Catherine MD Facility:[facility] Start: 08-13-2023 End: 08-13-2023 ambulatory BACILIO LIZ Facility:[facility] Start: 08-08-2023 End: 08-09-2023 ambulatory BACILIO LIZ Facility:[facility] Start: 07-30-2023 End: 07-31-2023 ambulatory BACILIO LIZ Facility:[facility] Start: 07-12-2023 End: 07-13-2023 ambulatory BACILIO LIZ Facility:[facility] Start: 08-24-2022 Encounter for preprocedural laboratory examination DR MARY LOU COHEN . [facility] Start: 08-24-2022 End: 08-25-[address] MARY LOU COHEN . Facility:[facility] Start: 08-21-2022 End: 08-22-[address] MARY LOU COHEN . Facility:[facility] Start: 08-21-2022 End: 08-22-2022 Encounter for preprocedural laboratory examination DR MARY LOU COHEN . Facility:[facility] Start: 08-20-2022 Encounter for other preprocedural examination DR MARY LOU COHEN . [facility] Start: 08-16-2022 End: 08-17-[address] BACILIO LIZ Facility:[facility] Start: 08-16-2022 End: 08-17-2022 Encounter for other preprocedural examination DR BACILIO LIZ Facility:[facility] Start: 07-06-2022 End: 07-06-[address] MARY LOU COHEN . Facility:[facility] Start: 07-05-2022 End: 07-06-[address] MARY LOU COHEN . Facility:[facility] Start: 06-26-2022 End: 06-27-[address] MARY LOU COHEN . Facility:[facility] Start: 06-19-2022 End: 06-20-2022 ambulatory CYRUS HOLLAND Facility:[facility] Start: 05-29-2022 End: 05-29-[address] MARY LOU COHEN . Facility:[facility] Start: 02-28-2022 End: 03-01-[address] BACILIO LIZ Facility:[facility] Start: 11-04-2018 End: 11-04-2018 Patient encounter procedure Samir Spain Facility[facility] Payers Date Payer Category Payer Self-pay 2018 Unknown [id number] 1975 Unknown [id number] 2.16.84 [id number] 1977 Unknown [id number] 2.16.84 0.1.630544.3.579.2.593 1977 Unknown [id number] 2.16.84 0.1.354715.3.579.2.593 1977 Unknown [id number] 2.16.84 0.1.113899.3.579.2.593 1977 Unknown [id number] 2.16.84 0.1.893622.3.579.2.593 1977 Unknown [id number] 2.16.84 0.1.357812.3.579.2.593 1977 Unknown [id number] 2.16.84 0.1.688640.3.579.2.593 1977 Unknown [id number] 2.16.84 0.1.829066.3.579.2.593 1977 Unknown [id number] 2.16.84 0.1.341734.3.579.2.593 1977 Unknown [id number] 2.16.8 40.1.029591.3.579.2.718 1977 Unknown [id number] 2.16.8 40.1.408190.3.579.2.718 1977 Unknown [id number] 2.16.8 40.1.937538.3.579.2.718 1977 Unknown [id number] 2.16.8 40.1.961831.3.579.2.718 1977 Unknown [id number] 2.16.8 40.1.404562.3.579.2.8 1959 Unknown [id number] Unknown [id number] 2.16.840 .1.817055.3.579.2.531 Clinical Note 08-24-2022 Note Date & Type Note Facility 08-24-2022 Note OPERATIVE NOTE OPERATION DATE: 09/20/2022 PROCEDURE: Da Flako assisted laparoscopic hysterectomy, bilateral salpingectomy with cystoscopy. PREOPERATIVE DIAGNOSIS: Abnormal uterine bleeding, dysmenorrhea, pelvic pain, Mittelschmerz thickened endometrium. POSTOPERATIVE DIAGNOSIS: Abnormal uterine bleeding, dysmenorrhea, pelvic pain, Mittelschmerz thickened endometrium. ANESTHESIA: General. SURGEON: Mary Lou Cohen D.O. ELECTRONIC TEST TECHNICIAN: ESTEFANY Navarro URINE OUTPUT: Yellow and clear. BLOOD LOSS: 75 mL. SPECIMEN: Uterus and tubes. FINDINGS: Slightly enlarged uterus, normal appearing ovaries and tubes. No evidence of gross disease in the pelvis. PROCEDURE: The patient was taken back to the operating room, where she was prepped and draped in the normal sterile fashion after being placed in the dorsal lithotomy position. Patient's anesthesia was found to be adequate. Surgical timeout was performed using two patient identifiers. SCDs were on and in place. Two grams of Ancef were given prior to the surgery. Sterile Rodrigez catheter was inserted. Standard size VCare was secured to the uterine cervix and the surgeon changed gloves. Attention then was turned to the patient's abdomen, where a supraumbilical incision was then made. Two S retractors were used to identify the patient's fascia. The fascia was then tented up using Will clamps and the patient's fascia was incised sharply. Patient's abdomen was identified and entered bluntly. The patient had the trocar placed and a pneumoperitoneum was obtained. Approximately 4 liters of CO2 gas was used. The camera was then placed through the trocar. At this time, two robot trocars were placed in the patient's left and right side, two hand widths from the midline, and this was placed under direct visualization. The patient's tube on the right side was tended up and the vessel sealer was then used to come across the mesosalpinx, and this was carried down to the uterine ovarian ligament. The vessel sealer was carried down serially to the broad ligament, to the area of the bladder flap, which was then created anteriorly, and the uterine arteries were skeletonized and sealed using the vessel sealer. The colpotomy was made using the monopolar cautery on cut, and this was carried circumferentially, posteriorly to anteriorly, until the uterus was amputated. The specimen was then removed intact through the vagina, without difficulty. The vagina was then closed using two running V-Loc in a non-lock fashion. The robot was undocked. The abdomen was desufflated. The skin defects were closed using 4-0 Vicryl. Please note, the fascia was closed using 0 Vicryl. Sponge, lap and needle counts were correct x2. Patient was taken to recovery room in stable condition. The patient was awakened by Anesthesia first. Patient tolerated procedure well. [facility] Clinical Note 07-06-2022 Note Date & Type Note Facility 07-06-2022 Note OPERATIVE NOTE OPERATION DATE: 07/06/2022 PROCEDURE: D AND C hysteroscopy. PREOPERATIVE DIAGNOSIS: Menorrhagia, thickened endometrial lining. POSTOPERATIVE DIAGNOSIS: Menorrhagia, thickened endometrial lining. ANESTHESIA: General. SURGEON: Mary Lou Cohen D.O. ELECTRONIC TEST TECHNICIAN: None. BLOOD LOSS: 5 mL. FINDINGS: Normal fluffy appearing cavity. No gross evidence of polyps, fibroids or malignancy. Both ostia seen. SPECIMEN: Endometrial curettings. PROCEDURE: The patient was taken back to the Operating Room where she was prepped and draped in normal sterile fashion after being placed under general anesthesia without difficulty. She was also placed in the dorsal lithotomy position. A weighted speculum was placed in the patient's vagina. The anterior lip of the cervix was identified and grasped with a single tooth tenaculum. The patient's uterus was then sounded roughly to cm. The patient was then gently dilated using Hegar dilators. The hysteroscope was passed through the patient's cervix into the uterus. Both ostia were identified. Normal appearing endometrium. No gross evidence of polyps, fibroids or malignancy. The hysteroscope was then removed from the patient's uterus. At that point, gentle curettage was performed until a gritty texture was noted. The endometrial curettings were sent out to pathology. The single tooth tenaculum was then removed from the patient's anterior lip of the cervix where excellent hemostasis was noted. All instruments were removed from the patient's vagina. The patient tolerated the procedure well. Sponge, lap and needle counts were correct times two. The patient was taken to the Recovery Room in stable condition. [facility] Summary Purpose Family History No Family History Records FoundNo Family History Records FoundNo Family History Records Found Advance Directives No Advanced Directives Records FoundNo Advanced Directives Records FoundNo Advanced Directives Records Found Additional Source Comments INFORMATION SOURCE (unrecogn ized section and content) DATE CREATED AUTHOR 11/19/2018 [facility] DATE CREATED AUTHOR AUTHOR'S ORGANIZ ATION 02/19/2023 [facility] DATE CREATED AUTHOR AUTHOR'S ORGANIZ ATION 08/23/2023 [facility] FOR RECORDS PERTAINING TO PATIENTS WHO ARE OR HAVE BEEN ENROLLED IN A CHEMICAL DEPENDENCY/SUBSTANCEABUSE PROGRAM, SOME INFORMATION MAY BE OMITTED. This clinical summary was aggregated from multiple sources. Caution should be exercised in using it in the provision of clinical care. This summary normalizes information from multiple sources, and as a consequence, information in this document may materially change the coding, format and clinical context of patient data. In addition, data may be omitted in some cases. CLINICAL DECISIONS SHOULD BE BASED ON THE PRIMARY CLINICAL RECORDS. [employer] [facility]. provides no warranty or guarantee of the accuracy or completeness of information in this document.
== END 2023-08-19 07:50 | disposition home or self-care (01) ==
LOC: MRI 07:49
PROVIDERS: Visit Provider Family Medicine
DX: S73.192A Other sprain of left hip, initial encounter (principal); Z79.899 Other long term (current) drug therapy; W19.XXXA Unspecified fall, initial encounter; M24.152 Other articular cartilage disorders, left hip; M46.1 Sacroiliitis, not elsewhere classified
CPT/HCPCS: 73721; 96372; 99284

== ENCOUNTER 2023-08-19 09:09 | Emergency (ER) | payer OTHER, SELFPAY ==
[2023-08-19 09:15] VITALS: BP 157/98; PULSE 93; RESP 20; TEMP 36.7; O2SAT 100; BMI 24.5
[2023-08-19] MEDS: KETOROLAC TROMETHAMINE 60 MG/2 ML VIAL IM (09:39)
--- NOTE | 2023-08-19 09:56 | ED.GENADUL1 ---
HPI - General Adult General Chief complaint: Back Pain/Injury Stated complaint: LOWER EXTREMITY PAIN TO LEFT LEG Time Seen by Provider: 08/19/23 09:12 Source: patient Mode of arrival: Wheelchair Limitations: no limitations History of Present Illness HPI narrative: 47-year-old female presents for left hip and back pain. She had fallen about two months ago and went to a chiropractor and felt better. The pain came back. She states it severe and it hurts a great deal when she walks on it. No subsequent injury. No pain on the right side. she did not initially tell us that we were able to determine that she had an MRI of her hip today. Related Data Home Medications Medication Instructions Recorded Confirmed atomoxetine 80 mg capsule 80 mg PO Q24H 08/06/23 08/19/23 diclofenac sodium 75 mg 75 mg PO Q12H 08/06/23 08/06/23 tablet,delayed release methylprednisolone 4 mg tablets in mg 08/06/23 a dose pack gabapentin 300 mg capsule 300 mg PO BID 08/19/23 08/19/23 Previous Rx's Medication Instructions Recorded hydrocodone 5 mg-acetaminophen 325 1 tab PO Q4H PRN pain 3 days #12 08/06/23 mg tablet tabs tizanidine 4 mg tablet (Zanaflex) 4 mg PO TID PRN muscle spasticity 08/06/23 5 days #15 tabs hydrocodone 5 mg-acetaminophen 325 1 tab PO Q6H PRN pain 5 days #20 08/19/23 mg tablet tabs Allergies Allergy/AdvReac Type Severity Reaction Status Date / Time No Known Drug Allergies Allergy Verified 08/06/23 13:52 Review of Systems ROS Narrative A ten point review of systems is negative except as noted above. PFSH PFSH Social History Smoking status: Never smoker Exam Narrative Exam Narrative: Nurses note and vital signs reviewed and patient is not hypoxic. General: The patient appears uncomfortable Skin: Warm, dry, no pallor noted. There is no rash noted. Head: Normocephalic, atraumatic Eye: Normal conjunctiva, no drainage Ears, Nose, Mouth, and Throat: oral mucosa is moist. Nares patent. Cardiovascular: Regular Rate and Rhythm Respiratory: Patient is in no distress, no accessory muscle use, lungs are clear to auscultation, no wheezing, rales or rhonchi Back: non-tender, no bruise or rash GI: nontender Musculoskeletal: she has discomfort with range of motion of the left hip. The leg is not swollen. No calf tenderness. Neurological: A&O, normal speech Psychiatric: Cooperative Constitutional Vital Signs, click to edit/add: Last Vital Signs Temp 98.1 F 08/19/23 09:15 Pulse 93 H 08/19/23 09:15 Resp 20 08/19/23 09:15 BP 157/98 H 08/19/23 09:15 Pulse Ox 100 08/19/23 09:15 O2 Del Method Room Air 08/19/23 09:15 Course Vital Signs Vital signs: Vital Signs Temperature 98.1 F 08/19/23 09:15 Pulse Rate 93 H 08/19/23 09:15 Respiratory Rate 20 08/19/23 09:15 Blood Pressure 157/98 H 08/19/23 09:15 Pulse Oximetry 100 08/19/23 09:15 Oxygen Delivery Method Room Air 08/19/23 09:15 Temperature 98.1 F 08/19/23 09:15 Pulse Rate 93 H 08/19/23 09:15 Respiratory Rate 20 08/19/23 09:15 Blood Pressure 157/98 H 08/19/23 09:15 Pulse Oximetry 100 08/19/23 09:15 Oxygen Delivery Method Room Air 08/19/23 09:15 Medical Decision Making [facility] Narrative Medical decision making narrative: as it turns out the patient had an MRI today which shows a labral tear as well as a partial tear of the gluteus medius insertion. We are arranging for her see orthopedics. She is placed on crutches and provided pain medication. Treatment diagnosis and follow-up were discussed with the patient. 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 TECHNIQUE: Multiplanar, multisequence imaging of the left hip was performed without contrast COMPARISON: No recent relevant imaging. FINDINGS: Study mildly degraded by motion. On small xqazl-ac-egql imaging of the left hip, left femur is well seated within the acetabulum. No fracture or AVN identified. There is mild perceived bony overgrowth of the superior lateral femoral head neck junction. No detached labral tear identified. Diminutive appearance of the anterior labrum potentially reflects labral degeneration. No high-grade chondrosis. No subchondral marrow changes. Trace effusion. Mild proximal left hamstring tendinosis. Tendinosis and low-grade partial tearing of the left gluteus medius insertion at the greater trochanter. No evidence of bursitis. The remaining left hip regional musculature is unremarkable. On large ficzx-wv-icrm imaging, the bone marrow signal is heterogeneous, favoring to represent red marrow reconversion. Mild loss of normal intervertebral disc space height and signal at the L4-L5 level, incompletely characterized. The sacroiliac joints are congruent with mild joint space narrowing. The pubic symphysis is congruent. The right femur is well seated within the acetabulum without fracture or AVN. Tendinosis and low-grade partial tearing of the] gluteus medius insertion. The remaining right hip regional musculature is without muscle strain or tendon tear. Limited evaluation the pelvic viscera is without acute or suspicious abnormality. There is a left ovarian cyst or dominant follicle. IMPRESSION: 1. Mild perceived bony overgrowth of the superior lateral femoral head neck junction of the left hip with probable degenerative tearing of the anterior labrum. No detached labral tear identified. No fracture, AVN or high-grade chondrosis identified. 2. Bilateral gluteus medius insertional tendinosis with low-grade partial tearing. A complete rupture not identified. 3. Mild sacroiliac osteoarthritis. Electronically authenticated by: LEANDRO SILVERIO Date: 08/19/2023 09:29 Discharge Plan Discharge Chief Complaint: Back Pain/Injury Clinical Impression: Labral tear of hip joint Patient Disposition: Home, Self-Care Time of Disposition Decision: 10:03 Condition: Good Mode of Transportation: Private Vehicle Prescriptions / Home Meds: New hydrocodone-acetaminophen 5-325 mg tablet 1 tab PO Q6H PRN (Reason: pain) 5 Days Qty: 20 0RF No Action gabapentin 300 mg capsule 300 mg PO BID atomoxetine 80 mg capsule 80 mg PO Q24H diclofenac sodium 75 mg tablet,delayed release (DR/EC) 75 mg PO Q12H methylprednisolone 4 mg tablets,dose pack tizanidine [Zanaflex] 4 mg tablet 4 mg PO TID PRN (Reason: muscle spasticity) 5 Days Qty: 15 0RF hydrocodone-acetaminophen 5-325 mg tablet 1 tab PO Q4H PRN (Reason: pain) 3 Days Qty: 12 0RF Instructions: Crutch Instructions (ED), Hip Sprain (ED) Stand Alone Forms: Portal Instructions Referrals: Physician,Non-Staff, MD [Primary Care Provider] - 1 week
--- OUTSIDE RECORDS SUMMARY | 2023-09-24 18:53 | XMS_ITS | CCD ---
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 Role Phone Samir Spain Attending Unavailable [...] HARSH Consulting Unavailable KUCHIPUDI, SUMIT Consulting Unavailable LEBEAU, DR HUGHES Primary Care Unavailable ALBARO ., DR BARRETO Attending Unavailable ALBARO ., DR BARRETO Admitting Unavailable ALBARO ., DR BARRETO Consulting Unavailable HOUSE, DR HUGHES Primary Care Unavailable ALBARO ., DR BARRETO Attending Unavailable ALBARO ., DR BARRETO Admitting Unavailable ALBARO ., DR BARRETO Consulting Unavailable LEBEAU, DR HUGHES Primary Care Unavailable ALBARO ., DR BARRETO Attending Unavailable ALBARO ., DR BARRETO Admitting Unavailable ALBARO ., DR BARRETO Consulting Unavailable HOUSE, DR HUGHES Primary Care Unavailable ALBARO ., DR BARRETO Attending Unavailable ALBARO ., DR BARRETO Admitting Unavailable DONNA, HARSH Consulting Unavailable GEMBUS, EVANS Consulting Unavailable LEBEAU, DR HUGHES Consulting Unavailable LEBEAU, DR HUGHES Primary Care Unavailable HOUSE, DR [...] 05-31-2022 Episodic Other aftercare (1 source) Other fdc (current) drug therapy; Translations: [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 Patient Provided Health Data on 08-01-2023 Patient Provided Health Data [id number]#1.00[facility] Patient Handouton 07-15-2023 Patient Handout [id number]#1.00[facility] BUNon 08-25-2022 Urea nitrogen [Mass/Vol] 6.0 mg/dL Critically low 7.0-18. 0 [facility] Comment on above: Performed By: #### B UN, CREA #### [facility] [address] [place] [address] Dr. Cyn Hermosillo CBC AUTO DIFFon 08-25-2022 BASO # 0.1 103/ul Normal 0.0-0.1 [facility] Comment on above: Performed By: #### C BC #### [facility] [address] [place] [address] Dr. Cyn Hermosillo Basophils/100 WBC (Bld) 0.4 % Normal 0.2-2.0 [facility] Comment on above: Performed By: #### C BC #### [facility] [address] [place] [address] Dr. Cyn Hermosillo EO # 0.1 103/ul Normal 0.0-0.7 [facility] Comment on above: Performed By: #### C BC #### [facility] [address] [place] [address] Dr. Cyn Hermosillo Eosinophils/100 WBC (Bld) 0.4 % Critically low 0.9-7. 0 [facility] Comment on above: Performed By: #### C BC #### [facility] [address] [place] [address] Dr. Cyn Hermosillo Erythrocyte distribution wid th (RBC) [Ratio] 13.2 % Normal 11.0-15.0 [facility] Comment on above: Performed By: #### C BC #### [facility] [address] [place] [address] Dr. Cyn Hermosillo Hematocrit (Bld) [Volume fraction] 27.4 % Critically low 36.0-48.0 [facility] Comment on above: Performed By: #### C BC #### [facility] [address] [place] [address] Dr. Cyn Hermosillo Hemoglobin (Bld) [Mass/Vol] 9.2 g/dL Critically low 12.0 -16.0 [facility] [place] [facility] Comment on above: Performed By: #### C BC #### [facility] [address] [place] [address] Dr. Cyn Hermosillo IG # 0.06 10e3/ul Critically high 0.00-0.03 [facility] Comment on above: Performed By: #### C BC #### [facility] [address] [place] [address] Dr. Cyn Hermosillo IG % 0.4 % Normal 0.0-0.5 [facility] Comment on above: Performed By: #### C BC #### [facility] [address] [place] [address] Dr. Cyn Hermosillo LYMPH # 2.6 103/ul Normal 1.2-3.8 [facility] Comment on above: Performed By: #### C BC #### [facility] [address] [place] [address] Dr. Cyn Hermosillo Lymphocytes/100 WBC (Bld) 17.8 % Critically low 20.5-6 0.0 [facility] [place] [facility] Comment on above: Performed By: #### C BC #### [facility] [address] [place] [address] Dr. Cyn Hermosillo MANUAL DIFF REQ NO Normal [facility] Comment on above: Performed By: #### C BC #### [facility] [address] [place] [address] Dr. Cyn Hermosillo MCH (RBC) [Entitic mass] 30.0 pg Normal 26.7-34.0 [facility] Comment on above: Performed By: #### C BC #### [facility] [address] [place] [address] Dr. Cyn Hermosillo MCHC (RBC) [Mass/Vol] 33.6 g/dL Normal 29.9-35.2 [facility] Comment on above: Performed By: #### C BC #### [facility] [address] [place] [address] Dr. Cyn Hermosillo MCV (RBC) [Entitic vol] 89.3 fL Normal 81.0-99.0 [facility] Comment on above: Performed By: #### C BC #### [facility] [address] [address] [address] Cyn Hermosillo MONO # 0.9 103/ul Critically high 0.3-0.8 [facility] Comment on above: Performed By: #### C BC #### [facility] [address] [place] [address] Dr. Cyn Hermosillo Monocytes/100 WBC (Bld) 6.2 % Normal 1.7-12.0 [facility] Comment on above: Performed By: #### C BC #### [facility] [address] [place] [address] Dr. Cyn Hermosillo NEUT # 10.8 103/ul Critically high 1.4-6.5 [facility] Comment on above: Performed By: #### C BC #### [facility] [address] [place] [address] Dr. Cyn Hermosillo Neutrophils/100 WBC (Bld) 74.8 % Normal 43.0-75.0 [facility] Comment on above: Performed By: #### C BC #### [facility] [address] [place] [address] Dr. Cyn Hermosillo Platelet mean volume (Bld) [ Entitic vol] 12.4 fL Normal 9.5-13.5 [facility] Comment on above: Performed By: #### C BC #### [facility] [address] [place] [address] Dr. Cyn Hermosillo PLT 174 103/ul Normal 150-450 [facility] Comment on above: Performed By: #### C BC #### [facility] [address] [place] [address] Dr. Cyn Hermosillo RBC 3.07 106/ul Critically low 4.20-5.40 [facility] Comment on above: Performed By: #### C BC #### [facility] [address] [place] [address] Dr. Cyn Hermosillo WBC 14.5 103/ul Critically high 4.0-11.0 [facility] Comment on above: Performed By: #### C BC #### [facility] [address] [place] [address] Dr. Cyn Hermosillo CREATININEon 08-25-2022 Creatinine [Mass/Vol] 0.49 mg/dL Critically low 0.55-1.02 [facility] Comment on above: Performed By: #### B UN, CREA #### [facility] [address] [place] [address] Dr. Cyn Hermosillo EGFR-AF BULGARIAN >60 Normal >=60 [facility] Comment on above: Performed By: #### B UN, CREA #### [facility] [address] [place] [address] Dr. Cyn Hermosillo EGFR-NON AF BULGARIAN >60 Normal >=60 [facility] Comment on above: Performed By: #### B UN, CREA #### [facility] [address] [place] [address] Dr. Cyn Hermosillo PREG HCG QUALon 08-24-2022 , QUAL Negative Normal NEGATIVE [facility] Comment on above: Performed By: #### C MP, TSH #### [facility] [address] [place] [address] Dr. Cyn Hermosillo CBC AUTO DIFFon 08-21-2022 BASO # 0.1 103/ul Normal 0.0-0.1 [facility] Comment on above: Performed By: #### C MP, TSH #### [facility] [address] [place] [address] Dr. Cyn Hermosillo Basophils/100 WBC (Bld) 1.0 % Normal 0.2-2.0 [facility] Comment on above: Performed By: #### C MP, TSH #### [facility] [address] [place] [address] Dr. Cyn Hermosillo EO # 0.1 103/ul Normal 0.0-0.7 [facility] Comment on above: Performed By: #### C MP, TSH #### [facility] [address] [place] [address] Dr. Cyn Hermosillo Eosinophils/100 WBC (Bld) 0.7 % Critically low 0.9-7. 0 [facility] Comment on above: Performed By: #### C MP, TSH #### [facility] [address] [place] [address] Dr. Cyn Hermosillo Erythrocyte distribution wid th (RBC) [Ratio] 13.4 % Normal 11.0-15.0 [facility] Comment on above: Performed By: #### C MP, TSH #### [facility] [address] [place] [address] Dr. Cyn Hermosillo Hematocrit (Bld) [Volume fraction] 34.9 % Critically low 36.0-48.0 [facility] Comment on above: Performed By: #### C MP, TSH #### [facility] [address] [place] [address] Dr. Cyn Hermosillo Hemoglobin (Bld) [Mass/Vol] 11.4 g/dL Critically low 12.0 -16.0 [facility] Comment on above: Performed By: #### C MP, TSH #### [facility] [address] [place] [address] Dr. Cyn Hermosillo IG # 0.02 10e3/ul Normal 0.00-0.03 [facility] Comment on above: Performed By: #### C MP, TSH #### [facility] [address] [place] [address] Dr. Cyn Hermosillo IG % 0.2 % Normal 0.0-0.5 [facility] Comment on above: Performed By: #### C MP, TSH #### [facility] [address] [place] [address] Dr. Cyn Hermosillo LYMPH # 3.2 103/ul Normal 1.2-3.8 [facility] Comment on above: Performed By: #### C MP, TSH #### [facility] [address] [address] [address] Cyn Hermosillo Lymphocytes/100 WBC (Bld) 35.9 % Normal 20.5-60.0 [facility] Comment on above: Performed By: #### C MP, TSH #### [facility] [address] [address] [address] Cyn Hermosillo MANUAL DIFF REQ NO Normal [facility] Comment on above: Performed By: #### C MP, TSH #### [facility] [address] [place] [address] Dr. Cyn Hermosillo MCH (RBC) [Entitic mass] 29.2 pg Normal 26.7-34.0 [facility] Comment on above: Performed By: #### C MP, TSH #### [facility] [address] [place] [address] Dr. Cyn Hermosillo MCHC (RBC) [Mass/Vol] 32.7 g/dL Normal 29.9-35.2 [facility] Comment on above: Performed By: #### C MP, TSH #### [facility] [address] [place] [address] Dr. Cyn Hermosillo MCV (RBC) [Entitic vol] 89.3 fL Normal 81.0-99.0 [facility] Comment on above: Performed By: #### C MP, TSH #### [facility] [address] [place] [address] Dr. Cyn Hermosillo MONO # 0.7 103/ul Normal 0.3-0.8 [facility] Comment on above: Performed By: #### C MP, TSH #### [facility] [address] [place] [address] Dr. Cyn Hermosillo Monocytes/100 WBC (Bld) 8.2 % Normal 1.7-12.0 [facility] Comment on above: Performed By: #### C MP, TSH #### [facility] [address] [place] [address] Dr. Cyn Hermosillo NEUT # 4.8 103/ul Normal 1.4-6.5 [facility] Comment on above: Performed By: #### C MP, TSH #### [facility] [address] [place] [address] Dr. Cyn Hermosillo Neutrophils/100 WBC (Bld) 54.0 % Normal 43.0-75.0 [facility] Comment on above: Performed By: #### C MP, TSH #### [facility] [address] [place] [address] Dr. Cyn Hermosillo Platelet mean volume (Bld) [ Entitic vol] 11.9 fL Normal 9.5-13.5 [facility] Comment on above: Performed By: #### C MP, TSH #### [facility] [address] [place] [address] Dr. Cyn Hermosillo PLT 242 103/ul Normal 150-450 [facility] Comment on above: Performed By: #### C MP, TSH #### [facility] [address] [place] [address] Dr. Cyn Hermosillo RBC 3.91 106/ul Critically low 4.20-5.40 [facility] Comment on above: Performed By: #### C MP, TSH #### [facility] [address] [place] [address] Dr. Cyn Hermosillo WBC 8.9 103/ul Normal 4.0-11.0 [facility] Comment on above: Performed By: #### C MP, TSH #### [facility] [address] [place] [address] Dr. Cyn Hermosillo [facility] SARS-CoV-2 (COVID-19) RNA SHELLIE+probe Ql (Unsp spec) Not detected Normal NOT DETECTED [facility] Comment on above: Result Comment: This test is not yet approved or cleared by the [place] FDA. When there are no FDA-approved or cleared tests available, and other criteria are met, FDA can make tests available under an emergency access mechanism called an Emergency Use Authorization (EUA). The EUA for this test is supported by the Surveillance Director of Health and Human Service's (HHS's) declaration [...] SARS-CoV-2. Performed By: #### C VDTBH #### [facility] [address] [place] [address] Dr. Cyn Hermosillo PROF CHEM 8 (BAS METB)on Anion gap [Moles/Vol] 9.6 mmol/L Normal [facility] Comment on above: Performed By: #### C MP, TSH #### [facility] [address] [place] [address] Dr. Cyn Hermosillo Calcium [Mass/Vol] 8.6 mg/dL Normal 8.5-10.1 [facility] Comment on above: Performed By: #### C MP, TSH #### [facility] [address] [place] [address] Dr. Cyn Hermosillo Chloride [Moles/Vol] 102 mmol/L Normal 98-107 [facility] Comment on above: Performed By: #### C MP, TSH #### [facility] [address] [place] [address] Dr. Cyn Hermosillo CO2 [Moles/Vol] 27.1 mmol/L Normal 21.0-32.0 [facility] Comment on above: Performed By: #### C MP, TSH #### [facility] [address] [place] [address] Dr. Cyn Hermosillo Creatinine [Mass/Vol] 0.46 mg/dL Critically low 0.55-1.02 [facility] Comment on above: Performed By: #### C MP, TSH #### [facility] [address] [place] [address] Dr. Cyn Hermosillo EGFR-AF BULGARIAN >60 Normal >=60 [facility] Comment on above: Performed By: #### C MP, TSH #### [facility] [address] [address] [address] Cyn Hermosillo EGFR-NON AF BULGARIAN >60 Normal >=60 [facility] Comment on above: Performed By: #### C MP, TSH #### [facility] [address] [address] [address] Cyn Hermosillo Glucose [Mass/Vol] 115 mg/dL Critically high 74-106 [facility] Comment on above: Performed By: #### C MP, TSH #### [facility] [address] [address] [address] Cyn Hermosillo Potassium [Moles/Vol] 3.7 mmol/L Normal 3.5-5.1 [facility] Comment on above: Performed By: #### C MP, TSH #### [facility] [address] [address] [address] Cyn Hermosillo Sodium [Moles/Vol] 135 mmol/L Critically low 136-145 [facility] Comment on above: Performed By: #### C MP, TSH #### [facility] [address] [address] [address] Cyn Hermosillo Urea nitrogen [Mass/Vol] 15.0 mg/dL Normal 7.0-18.0 [facility] Comment on above: Performed By: #### C MP, TSH #### [facility] [address] [address] [address] Cyn Hermosillo Urea nitrogen/Creatinine [Mass ratio] 32.6 mg/mg Normal [facility] Comment on above: Performed By: #### C MP, TSH #### [facility] [address] [address] [address] Cyn Hermosillo TYPE AND SCREENon 08-21-2022 TYPE AND SCREEN Negative Normal [facility] Comment on above: Performed By: #### C MP, TSH #### [facility] [address] [address] [address] Cyn Hermosillo CBC AUTO DIFFon 07-06-2022 BASO # 0.1 103/ul Normal 0.0-0.1 [facility] Comment on above: Performed By: #### C MP, TSH #### [facility] [address] [place] [address] Dr. Cyn Hermosillo Basophils/100 WBC (Bld) 0.7 % Normal 0.2-2.0 [facility] Comment on above: Performed By: #### C MP, TSH #### [facility] [address] [place] [address] Dr. Cyn Hermosillo EO # 0.1 103/ul Normal 0.0-0.7 [facility] Comment on above: Performed By: #### C MP, TSH #### [facility] [address] [place] [address] Dr. Cyn Hermosillo Eosinophils/100 WBC (Bld) 0.6 % Critically low 0.9-7. 0 [facility] Comment on above: Performed By: #### C MP, TSH #### [facility] [address] [place] [address] Dr. Cyn Hermosillo Erythrocyte distribution wid th (RBC) [Ratio] 13.2 % Normal 11.0-15.0 [facility] Comment on above: Performed By: #### C MP, TSH #### [facility] [address] [place] [address] Dr. Cyn Hermosillo Hematocrit (Bld) [Volume fraction] 34.3 % Critically low 36.0-48.0 [facility] Comment on above: Performed By: #### C MP, TSH #### [facility] [address] [place] [address] Dr. Cyn Hermosillo Hemoglobin (Bld) [Mass/Vol] 11.4 g/dL Critically low 12.0 -16.0 [facility] Comment on above: Performed By: #### C MP, TSH #### [facility] [address] [place] [address] Dr. Cyn Hermosillo IG # 0.04 10e3/ul Critically high 0.00-0.03 [facility] Comment on above: Performed By: #### C MP, TSH #### [facility] [address] [address] [address] Cyn Hermosillo IG % 0.4 % Normal 0.0-0.5 [facility] Comment on above: Performed By: #### C MP, TSH #### [facility] [address] [address] [address] Cyn Hermosillo LYMPH # 2.7 103/ul Normal 1.2-3.8 [facility] Comment on above: Performed By: #### C MP, TSH #### [facility] [address] [place] [address] Dr. Cyn Hermosillo Lymphocytes/100 WBC (Bld) 25.0 % Normal 20.5-60.0 [facility] Comment on above: Performed By: #### C MP, TSH #### [facility] [address] [place] [address] Dr. yCn Hermosillo MANUAL DIFF REQ NO Normal [facility] Comment on above: Performed By: #### C MP, TSH #### [facility] [address] [place] [address] Dr. Cyn Hermosillo MCH (RBC) [Entitic mass] 30.2 pg Normal 26.7-34.0 [facility] Comment on above: Performed By: #### C MP, TSH #### [facility] [address] [place] [address] Dr. Cyn Hermosillo MCHC (RBC) [Mass/Vol] 33.2 g/dL Normal 29.9-35.2 [facility] Comment on above: Performed By: #### C MP, TSH #### [facility] [address] [place] [address] Dr. Cyn Hermosillo MCV (RBC) [Entitic vol] 91.0 fL Normal 81.0-99.0 [facility] Comment on above: Performed By: #### C MP, TSH #### [facility] [address] [place] [address] Dr. Cyn Hermosillo MONO # 0.7 103/ul Normal 0.3-0.8 [facility] Comment on above: Performed By: #### C MP, TSH #### [facility] [address] [address] [address] Cyn Hermosillo Monocytes/100 WBC (Bld) 6.8 % Normal 1.7-12.0 [facility] Comment on above: Performed By: #### C MP, TSH #### [facility] [address] [place] [address] Dr. Cyn Hermosillo NEUT # 7.2 103/ul Critically high 1.4-6.5 [facility] Comment on above: Performed By: #### C MP, TSH #### [facility] [address] [place] [address] Dr. Cyn Hermosillo Neutrophils/100 WBC (Bld) 66.5 % Normal 43.0-75.0 [facility] Comment on above: Performed By: #### C MP, TSH #### [facility] [address] [place] [address] Dr. Cyn Hermosillo Platelet mean volume (Bld) [ Entitic vol] 12.0 fL Normal 9.5-13.5 [facility] Comment on above: Performed By: #### C MP, TSH #### [facility] [address] [place] [address] Dr. Cyn Hermosillo PLT 219 103/ul Normal 150-450 [facility] Comment on above: Performed By: #### C MP, TSH #### [facility] [address] [place] [address] Dr. Cyn Hermosillo RBC 3.77 106/ul Critically low 4.20-5.40 [facility] Comment on above: Performed By: #### C MP, TSH #### [facility] [address] [place] [address] Dr. Cyn Hermosillo WBC 10.8 103/ul Normal 4.0-11.0 [facility] Comment on above: Performed By: #### C MP, TSH #### [facility] [address] [place] [address] Dr. Cyn Hermosillo PREG HCG QUALon 07-06-2022 , QUAL Negative Normal NEGATIVE [facility] Comment on above: Performed By: #### C MP, TSH #### [facility] [address] [place], [place] [address] Dr. Cyn Hermsoillo Covid-19 PCR ([facility])on 06-08 SARS-CoV-2 (COVID-19) RNA SHELLIE+probe Ql (Unsp spec) Not detected Normal NOT DETECTED [facility] Comment on above: Result Comment: This test is not yet approved or cleared by the [place] FDA. When there are no FDA-approved or cleared tests available, and other criteria are met, FDA can make tests available under an emergency access mechanism called an Emergency Use Authorization (EUA). The EUA for this test is supported by the Surveillance Director of Health and Human Service's (HHS's) declaration [...] SARS-CoV-2. Performed By: #### C VDTB #### [facility] [address] [place], [place] [address] Dr. Cyn Hermosillo MRI PELVIS WO W [...] JW JOHN Date: 2022-06-26 12:06 Normal [facility] MG MAMM SCREEN 3D MYKE CADon 06-19-2022 MG MAMM SCREEN 3D MYKE CAD Patient: MANJINDER BOB Exam Date: 06/19/2022 : 1975 Gender:F Ordering : DR MARY LOU COHEN . Admission #: [id number] Family : Order #: [id number] CLICK HERE TO VIEW EXAM RADIOLOGY REPORT [...] breast cancer at age 45. LOCATION: [facility] BREAST COMPOSITION: Heterogeneously dense,which may obscure small [...] PALPABLE LUMP SHOULD BE BIOPSIED. Dictated by: Cyrsu Holland MD on 06/19/2022 at 13:45 Approved by: Cyrus Holland MD on 06/19/2022 at 13:46 Normal [facility] US PELVIS AND TRANSVAGon US PELVIS [...] JW JOHN Date: 2022-06-19 11:06 Normal [facility] l PAP ACOG PANEL 2: 30 to 65on 06-04-2022 . . Normal [facility] Comment on above: Result Comment: Perf ormed at: BA Performed By: #### [id number] #### [facility] [address] [address] [address] Cyn Hermosillo Age Gdln ACOG Testing 30-65 Normal [facility] Comment on above: Performed By: #### [id number] #### [facility] [address] [place], [place] [address] Dr. Cyn Hermosillo DIAGNOSIS: Comment Normal [facility] Comment on above: Result Comment: NEGA TIVE FOR INTRAEPITHELIAL LESION OR MALIGNANCY. CELLULAR CHANGES ASSOCIATED WITH INFLAMMATION ARE PRESENT. Performed at: BA Performed By: #### [id number] #### [facility] [address] [place] [address] Dr. Cyn Hermosillo HPV Aptima Negative Normal Negative [facility] Comment on above: Result Comment: This nucleic acid amplification test detects fourteen high-risk HPV types (16,18,31,33,35,39,45,51,52,56,58,59,66,68) without differentiation. Performed at: =G Performed By: #### [id number] #### [facility] [address] [place] [address] Dr. Cyn Heromsillo Methodology: Comment Normal [facility] Comment on above: Result Comment: This liquid based ThinPrep(R) pap test was screened with the use of an image guided system. Performed at: WB Performed By: #### [id number] #### [facility] [address] [place] [address] Dr. Cyn Hermosillo Note: Comment Normal [facility] Comment on above: Result Comment: The Pap smear is a screening test designed to aid in the detection of premalignant and malignant conditions of the uterine cervix. It is not a diagnostic procedure and should not be used as the sole means of detecting cervical cancer. Both false-positive and false-negative reports do occur. . Performed at: WB Performed By: #### [id number] #### [facility] [address] [place] [address] Dr. Cyn Hermosillo Performed by: Comment Normal [facility] Comment on above: Result Comment: Ramos Leo, [employer] Ironer Performed at: BA Performed By: #### [id number] #### [facility] [address] [place] [address] Dr. Cyn Hermosillo Specimen adequacy: Comment Normal [facility] Comment on above: Result Comment: Sati sfactory for evaluation. Endocervical and/or squamous metaplastic cells (endocervical component) are present. Performed at: BA Performed By: #### [id number] #### [facility] [address] [place] [address] Dr. Cyn Hermosillo T4 LABCORPon 03-02-2022 T4 [Mass/Vol] 8.2 ug/dL Normal 4.5-12.0 [facility] Comment on above: Performed By: #### T [id number] #### [facility] [address] [place] [address] Dr. Cyn Hermosillo CBC AUTO DIFFon 02-28-2022 BASO # 0.1 103/ul Normal 0.0-0.1 [facility] Comment on above: Performed By: #### C BC #### [facility] [address] [place] [address] Dr. Cyn Hermosillo Basophils/100 WBC (Bld) 0.7 % Normal 0.2-2.0 [facility] Comment on above: Performed By: #### C BC #### [facility] [address] [place] [address] Dr. Cyn Hermosillo EO # 0.1 103/ul Normal 0.0-0.7 [facility] Comment on above: Performed By: #### C BC #### [facility] [address] [place] [address] Dr. Cyn Hermosillo Eosinophils/100 WBC (Bld) 0.7 % Critically low 0.9-7. 0 [facility] Comment on above: Performed By: #### C BC #### [facility] [address] [place] [address] Dr. Cyn Hermosillo Erythrocyte distribution wid th (RBC) [Ratio] 13.3 % Normal 11.0-15.0 [facility] Comment on above: Performed By: #### C BC #### [facility] [address] [place] [address] Dr. Cyn Hermosillo Hematocrit (Bld) [Volume fraction] 36.4 % Normal 3 6.0-48.0 [facility] Comment on above: Performed By: #### C BC #### [facility] [address] [place] [address] Dr. Cyn Hermosillo Hemoglobin (Bld) [Mass/Vol] 11.8 g/dL Critically low 12.0 -16.0 [facility] Comment on above: Performed By: #### C BC #### [facility] [address] [address] [address] Cyn Hermosillo IG # 0.03 10e3/ul Normal 0.00-0.03 [facility] Comment on above: Performed By: #### C BC #### [facility] [address] [address] [address] Cyn Hermosillo IG % 0.3 % Normal 0.0-0.5 [facility] Comment on above: Performed By: #### C BC #### [facility] [address] [place] [address] Dr. Cyn Hermosillo LYMPH # 3.2 103/ul Normal 1.2-3.8 [facility] Comment on above: Performed By: #### C BC #### [facility] [address] [place] [address] Dr. Cyn Hermosillo Lymphocytes/100 WBC (Bld) 32.7 % Normal 20.5-60.0 [facility] Comment on above: Performed By: #### C BC #### [facility] [address] [place] [address] Dr. Cyn Hermosillo MANUAL DIFF REQ NO Normal [facility] Comment on above: Performed By: #### C BC #### [facility] [address] [place] [address] Dr. Cyn Hermosillo MCH (RBC) [Entitic mass] 29.4 pg Normal 26.7-34.0 [facility] Comment on above: Performed By: #### C BC #### [facility] [address] [place] [address] Dr. Cyn Hermosillo MCHC (RBC) [Mass/Vol] 32.4 g/dL Normal 29.9-35.2 [facility] Comment on above: Performed By: #### C BC #### [facility] [address] [place] [address] Dr. Cyn Hermosillo MCV (RBC) [Entitic vol] 90.8 fL Normal 81.0-99.0 [facility] Comment on above: Performed By: #### C BC #### [facility] [address] [address] [address] Cyn Hermosillo MONO # 0.7 103/ul Normal 0.3-0.8 [facility] Comment on above: Performed By: #### C BC #### [facility] [address] [place] [address] Dr. Cyn Hermosillo Monocytes/100 WBC (Bld) 7.2 % Normal 1.7-12.0 [facility] Comment on above: Performed By: #### C BC #### [facility] [address] [place] [address] Dr. Cyn Hermosillo NEUT # 5.7 103/ul Normal 1.4-6.5 [facility] Comment on above: Performed By: #### C BC #### [facility] [address] [place] [address] Dr. Cyn Hermosillo Neutrophils/100 WBC (Bld) 58.4 % Normal 43.0-75.0 [facility] Comment on above: Performed By: #### C BC #### [facility] [address] [place] [address] Dr. Cyn Hermosillo Platelet mean volume (Bld) [ Entitic vol] 11.9 fL Normal 9.5-13.5 [facility] Comment on above: Performed By: #### C BC #### [facility] [address] [place] [address] Dr. Cyn Hermosillo PLT 217 103/ul Normal 150-450 [facility] Comment on above: Performed By: #### C BC #### [facility] [address] [place] [address] Dr. Cyn Hermosillo RBC 4.01 106/ul Critically low 4.20-5.40 [facility] Comment on above: Performed By: #### C BC #### [facility] [address] [place] [address] Dr. Cyn Hermosillo WBC 9.8 103/ul Normal 4.0-11.0 [facility] Comment on above: Performed By: #### C BC #### [facility] [address] [address] [address] Cyn Hermosillo PROF 14(COMP METB)on 022 Albumin [Mass/Vol] 3.6 g/dL Normal 3.4-5.0 [facility] Comment on above: Performed By: #### C MP, TSH #### [facility] [address] [address] [address] Cyn Hermosillo Albumin/Globulin [Mass ratio] 1.0 {ratio} Normal [facility] Comment on above: Performed By: #### C MP, TSH #### [facility] [address] [address] [address] Cyn Hermosillo ALP [Catalytic activity/Vol] 59 U/L Normal 46-116 [facility] Comment on above: Performed By: #### C MP, TSH #### [facility] [address] [address] [address] Cyn Hermosillo ALT [Catalytic activity/Vol] 16 U/L Normal 14-59 [facility] Comment on above: Performed By: #### C MP, TSH #### [facility] [address] [address] [address] Cyn Hermosillo Anion gap [Moles/Vol] 11.0 mmol/L Normal [facility] Comment on above: Performed By: #### C MP, TSH #### [facility] [address] [address] [address] Cyn Hermosillo AST [Catalytic activity/Vol] U/L Critically low 15- 37 [facility] Comment on above: Performed By: #### C MP, TSH #### [facility] [address] [address] [address] Cyn Hermosillo Bilirubin [Mass/Vol] 0.2 mg/dL Normal 0.2-1.0 [facility] Comment on above: Performed By: #### C MP, TSH #### [facility] [address] [address] [address] Cyn Hermosillo Calcium [Mass/Vol] 8.5 mg/dL Normal 8.5-10.1 [facility] Comment on above: Performed By: #### C MP, TSH #### [facility] [address] [address] [address] Cyn Hermosillo Chloride [Moles/Vol] 104 mmol/L Normal 98-107 [facility] Comment on above: Performed By: #### C MP, TSH #### [facility] [address] [address] [address] Cyn Hermosillo CO2 [Moles/Vol] 27.9 mmol/L Normal 21.0-32.0 [facility] Comment on above: Performed By: #### C MP, TSH #### [facility] [address] [address] [address] Cyn Hermosillo Creatinine [Mass/Vol] 0.49 mg/dL Critically low 0.55-1.02 [facility] Comment on above: Performed By: #### C MP, TSH #### [facility] [address] [address] [address] Cyn Hermosillo EGFR-AF BULGARIAN >60 Normal >=60 [facility] Comment on above: Performed By: #### C MP, TSH #### [facility] [address] [address] [address] Cyn Hermosillo EGFR-NON AF BULGARIAN >60 Normal >=60 [facility] Comment on above: Performed By: #### C MP, TSH #### [facility] [address] [address] [address] Cyn Hermosillo Globulin (S) [Mass/Vol] 3.7 g/dL Normal [facility] Comment on above: Performed By: #### C MP, TSH #### [facility] [address] [address] [address] Cyn Hermosillo Glucose [Mass/Vol] 109 mg/dL Critically high 74-106 [facility] Comment on above: Performed By: #### C MP, TSH #### [facility] [address] [address] [address] Cyn Hermosillo Potassium [Moles/Vol] 3.9 mmol/L Normal 3.5-5.1 [facility] Comment on above: Performed By: #### C MP, TSH #### [facility] [address] [place] [address] Dr. Cyn Hermosillo Protein [Mass/Vol] 7.3 g/dL Normal 6.4-8.2 [facility] Comment on above: Performed By: #### C MP, TSH #### [facility] [address] [place] [address] Dr. Cyn Hermosillo Sodium [Moles/Vol] 139 mmol/L Normal 136-145 [facility] Comment on above: Performed By: #### C MP, TSH #### [facility] [address] [place] [address] Dr. Cyn Hermosillo Urea nitrogen [Mass/Vol] 15.0 mg/dL Normal 7.0-18.0 [facility] Comment on above: Performed By: #### C MP, TSH #### [facility] [address] [place] [address] Dr. Cyn Hermosillo Urea nitrogen/Creatinine [Mass ratio] 30.6 mg/mg Normal [facility] Comment on above: Performed By: #### C MP, TSH #### [facility] [address] [place] [address] Dr. Cyn Hermosillo TSHon 02-28-2022 TSH 0.399 uIU/mL Normal 0.358-3.740 [facility] Comment on above: Performed By: #### C MP, TSH #### [facility] [address] [place] [address] Dr. Cny Hermosillo TSH RANGE SEE BELOW Normal [facility] Comment on above: Result Comment: <0.3 4 UIU/ml HYPERTHYROID 0.34-5.60 UIU/ml EUTHYROID >5.60 UIU/ml HYPOTHYROID Performed By: #### C MP, TSH #### [facility] [address] [place] [address] Dr. Cyn Hermosillo Complete Blood Count Auto Di ffon 11-04-2018 Basophils #/vol (Bld) 0.1 10*3/uL Normal 0.0-0.2 [facility] Comment on above: Order Comment: FAX R ESULTS TO [phone] Result Comment: PERF ORMED BY: [place] [address] PATHOLOGIST [employer] PAGE DEVELOPER MAITE ROMAN M.D. Performed By: #### C BC #### [address] Basophils/100 WBC (Bld) 0.9 % Normal . [facility] Comment on above: Order Comment: FAX R ESULTS TO [phone] Performed By: #### C BC #### [address] Eosinophils #/vol (Bld) 0.1 10*3/uL Normal 0.0-0.45 [facility] Comment on above: Order Comment: FAX R ESULTS TO [phone] Performed By: #### C BC #### [address] Eosinophils/100 WBC (Bld) 1.2 % Normal . [facility] Comment on above: Order Comment: FAX R ESULTS TO [phone] Performed By: #### C BC #### [address] Erythrocyte distribution wid th Ratio (RBC) 13.2 % Normal 11.9-15.3 [facility] Comment on above: Order Comment: FAX R ESULTS TO [phone] Performed By: #### C BC #### [address] Hematocrit Volume Fraction (Bld) 36.0 % Normal 34.0-46.4 [facility] Comment on above: Order Comment: FAX R ESULTS TO [phone] Performed By: #### C BC #### [address] Hemoglobin mass conc (Bld) 12.5 g/dL Normal 11.8-15.4 [facility] Comment on above: Order Comment: FAX R ESULTS TO [phone] Performed By: #### C BC #### [facility] [address] [place] [address] Lymphocytes #/vol (Bld) 3.7 10*3/uL Normal 1.00-4.8 [facility] Comment on above: Order Comment: FAX R ESULTS TO [phone] Performed By: #### C BC #### [facility] [address] [place] [address] Lymphocytes/100 WBC (Bld) 37.6 % Normal . [facility] Comment on above: Order Comment: FAX R ESULTS TO [phone] Performed By: #### C BC #### [facility] [address] [place] [address] MCH Entitic mass (RBC) 31.6 pg Normal 24.7-34.3 [facility] Comment on above: Order Comment: FAX R ESULTS TO [phone] Performed By: #### C BC #### [facility] [address] [place] [address] MCH Entitic mass (RBC) 34.6 g/dL Normal 32.0-35.0 [facility] Comment on above: Order Comment: FAX R ESULTS TO [phone] Performed By: #### C BC #### [facility] [address] [place] [address] MCV Entitic volume (RBC) 91.1 fL Normal 80-100 [facility] Comment on above: Order Comment: FAX R ESULTS TO [phone] Performed By: #### C BC #### [facility] [address] [place] [address] Monocytes #/vol (Bld) 0.7 10*3/uL Normal 0.0-0.8 [facility] Comment on above: Order Comment: FAX R ESULTS TO [phone] Performed By: #### C BC #### [facility] [address] [place] [address] Monocytes/100 WBC (Bld) 7.5 % Normal . [facility] Comment on above: Order Comment: FAX R ESULTS TO [phone] Performed By: #### C BC #### [facility] [address] [place] [address] Neutrophils #/vol (Bld) 5.2 10*3/uL Normal 1.8-7.7 [facility] Comment on above: Order Comment: FAX R ESULTS TO [phone] Performed By: #### C BC #### [facility] [address] [place] [address] Neutrophils/100 WBC (Bld) 52.8 % Normal . [facility] Comment on above: Order Comment: FAX R ESULTS TO [phone] Performed By: #### C BC #### [address] Platelet mean volume Entitic volume (Bld) 10.2 fL Normal 6.3-10.7 [facility] Comment on above: Order Comment: FAX R ESULTS TO [phone] Performed By: #### C BC #### [facility] [address] [place] [address] Platelets #/vol (Bld) 244 10*3/uL Normal 150-450 [facility] Comment on above: Order Comment: FAX R ESULTS TO [phone] Performed By: #### C BC #### [facility] [address] [place] [address] RBC #/vol (Bld) 3.95 10*6/uL Normal 3.60-5.00 [facility] Comment on above: Order Comment: FAX R ESULTS TO [phone] Performed By: #### C BC #### [facility] [address] [place] [address] WBC #/vol (Bld) 9.9 10*3/uL Normal 3.8-11.6 [facility] Comment on above: Order Comment: FAX R ESULTS TO [phone] Performed By: #### C BC #### [address] [place] [address] [facility] Encounters Encounter Date Encounter Type Care Provider Facility Start: 08-22-2023 End: 08-23-2023 ambulatory Evans Catherine MD Facility:[facility] Start: 08-13-2023 End: 08-13-2023 ambulatory BACILIO LIZ Facility:[facility] Start: 08-08-2023 End: 08-09-2023 ambulatory BACILIO LIZ Facility:[facility] Start: 07-30-2023 End: 07-31-2023 ambulatory BACILIO LIZ Facility:[facility] Start: 07-12-2023 End: 07-13-2023 ambulatory BACILIO LIZ Facility:[facility] Start: 08-24-2022 Encounter for preprocedural laboratory examination DR MARY LOU COHEN . [facility] Start: 08-24-2022 End: 08-25-[address] MARY LOU COHEN . Facility:[facility] Start: 08-21-2022 End: 08-22-[address] MARY LOU COHEN . Facility:[facility] Start: 08-21-2022 End: 08-22-2022 Encounter for preprocedural laboratory examination DR MARY LOU COHEN . Facility:[facility] Start: 08-20-2022 Encounter for other preprocedural examination DR MARY LOU COHEN . [facility] Start: 08-16-2022 End: 08-17-[address] BACILIO [...] End: 11-04-2018 Patient encounter procedure Samir Spain Facility:[facility] Payers Date Payer Category Payer Self-pay 2018 Unknown [id number] 1975 Unknown [id number] 2.16.84 [id number] 1977 Unknown [id number] 2.16.84 [id number] 1977 Unknown [id number] 2.16.84 0.1.064348.3.579.2.593 1977 Unknown [id number] 2.16.84 0.1.973935.3.579.2.593 1977 Unknown [id number] 2.16.84 0.1.055369.3.579.2.593 1977 Unknown [id number] 2.16.84 0.1.853452.3.579.2.593 1977 Unknown [id number] 2.16.84 0.1.550654.3.579.2.593 1977 Unknown [id number] 2.16.84 0.1.371623.3.579.2.593 1977 Unknown [id number] 2.16.84 0.1.719322.3.579.2.593 1977 Unknown [id number] 2.16.8 40.1.748391.3.579.2.718 1977 Unknown [id number] 2.16.8 40.1.039191.3.579.2.718 1977 Unknown [id number] 2.16.8 40.1.675649.3.579.2.718 1977 Unknown [id number] 2.16.8 40.1.691046.3.579.2.718 1977 Unknown [id number] 2.16.8 40.1.799747.3.579.2.8 1959 Unknown [id number] Unknown [id number] 2.16.840 .[id number] Clinical Note 08-24-2022 Note Date & Type Note Facility 08-24-2022 Note OPERATIVE NOTE OPERATION DATE: 09/20/2022 PROCEDURE: Da Flako assisted laparoscopic hysterectomy, bilateral salpingectomy with cystoscopy. PREOPERATIVE DIAGNOSIS: Abnormal uterine bleeding, dysmenorrhea, pelvic pain, Mittelschmerz thickened endometrium. POSTOPERATIVE DIAGNOSIS: Abnormal uterine bleeding, dysmenorrhea, pelvic pain, Mittelschmerz thickened endometrium. ANESTHESIA: General. SURGEON: Mary Lou Cohen D.O. GOVERNMENT TEACHER: ESTEFANY Navarro URINE OUTPUT: Yellow and clear. [...] Anesthesia first. Patient tolerated procedure well. [facility] Clinical Note 07-06-2022 Note Date & Type Note Facility 07-06-2022 Note OPERATIVE NOTE OPERATION DATE: 07/06/2022 PROCEDURE: D AND C hysteroscopy. PREOPERATIVE DIAGNOSIS: Menorrhagia, thickened endometrial lining. POSTOPERATIVE DIAGNOSIS: Menorrhagia, thickened endometrial lining. ANESTHESIA: General. SURGEON: Mary Lou Cohen D.O. GOVERNMENT TEACHER: None. BLOOD LOSS: 5 mL. FINDINGS: Normal [...] the Recovery Room in stable condition. [facility] Summary Purpose Family History No Family History Records FoundNo Family History Records FoundNo Family History Records Found Advance Directives No Advanced Directives Records FoundNo Advanced Directives Records FoundNo Advanced Directives Records Found Additional Source Comments INFORMATION SOURCE (unrecogn ized section and content) DATE CREATED AUTHOR 11/19/2018 [facility] DATE CREATED AUTHOR AUTHOR'S ORGANIZ ATION 02/19/2023 [facility] DATE CREATED AUTHOR AUTHOR'S ORGANIZ ATION 08/23/2023 [facility] FOR RECORDS PERTAINING TO PATIENTS [...] BE BASED ON THE PRIMARY CLINICAL RECORDS. [employer] [facility]. provides no warranty or guarantee of the accuracy or completeness of information in this document.
== END 2023-08-19 10:26 | disposition home or self-care (01) ==
PROVIDERS: Emergency Provider Emergency Medicine
DX: S73.192A Other sprain of left hip, initial encounter (principal); Z79.899 Other long term (current) drug therapy; W19.XXXA Unspecified fall, initial encounter
CPT/HCPCS: 96372; 99284

== ENCOUNTER 2023-08-26 08:47 | Outpatient (OUT) | payer OTHER, SELFPAY ==
--- NOTE | 2023-08-26 08:56 | XR_ITS ---
The [address] [address] Patient Name: MANJINDER BOB MRN: [id number] date: 1975 Sex: F Assigned Patient Location: [facility] Current Patient Location: [facility] Accession/Order Number: [id number] Exam Date: 08/26/2023 09:05 Report Date: 08/26/2023 09:28 At the request of: HENRY AHMADI Procedure: XR lumbar spine min 4V EXAM: XR lumbar spine min 4V HISTORY: Lumbar Pain M54.50 COMPARISON: None. TECHNIQUE: 4 views FINDINGS: Satisfactory alignment. Maintained vertebral body heights. Multilevel endplate degenerative changes and disc disease of T11-L1. No acute fracture or significant subluxation. Constipation. XR/XR lumbar spine min 4V IMPRESSION: Degenerative changes and disc disease as above. Electronically authenticated by: JOSE E GONSALEZ Date: 08/26/2023 09:28
== END 2023-08-26 08:48 | disposition home or self-care (01) ==
LOC: RAD 08:48
PROVIDERS: Visit Provider Orthopaedic Surgery
DX: M54.50 Low back pain, unspecified (principal); M51.36 Other intervertebral disc degeneration, lumbar region
CPT/HCPCS: 72110

== ENCOUNTER 2023-09-13 09:36 | Outpatient (OUT) | payer OTHER, SELFPAY ==
--- NOTE | 2023-09-13 09:40 | MR_ITS ---
The [place] [id number] Patient Name: MANJINDER BOB MRN: [id number] date: 1975 Sex: F Assigned Patient Location: MRI Current Patient Location: MRI Accession/Order Number: [id number] Exam Date: 09/13/2023 09:47 Report Date: 09/13/2023 10:58 At the request of: HENRY AHMADI Procedure: MR lumbar spine wo con EXAM: MR lumbar spine wo con REASON FOR EXAM: Lumbar Pain M54.50. TECHNIQUE: Multiplanar, multisequence imaging of the lumbar spine was performed without contrast COMPARISON: Plain radiographs 08/26/2023. FINDINGS: 5 nonrib-bearing lumbar vertebrae. Normal lumbar lordosis without significant listhesis. Vertebral body heights are maintained. Bone marrow signal is heterogeneous, favoring to represent red marrow reconversion. No acute or aggressive osseous abnormality identified. The visualized bony pelvis is congruent. Limited evaluation of the abdominopelvic viscera is without acute or suspicious abnormality. L1-L2: No focal disc herniation identified. No significant spinal canal stenosis. Mild bilateral neural foraminal stenosis secondary to marginal osteophytes and facet arthropathy. L2-L3: Minimal broad-based disc bulge without severe spinal canal stenosis. Mild bilateral neural foraminal stenosis secondary to disc osteophyte complex and facet arthropathy. L3-L4: Diffuse broad-based disc bulge with mild spinal canal stenosis when combined with ligamentum flavum hypertrophy and facet arthropathy. Moderate bilateral neural foraminal stenosis secondary to disc osteophyte complex and facet arthropathy. L4-L5: Diffuse broad-based disc bulge with superimposed left lateral recess disc extrusion. This results in moderate to severe spinal canal stenosis. Compression of traversing nerve roots. Moderate to severe left neural foraminal stenosis and mild right neural foraminal stenosis. L5-S1: No focal disc herniation identified. No significant spinal canal or neural foraminal stenosis. MR/MR lumbar spine wo con IMPRESSION: 1. Mild to moderate multilevel degenerative disc disease and facet arthropathy, most significant at the L4-L5 level with large left lateral recess disc extrusion with moderate to severe spinal canal and severe left neural foraminal stenosis at this level. Electronically authenticated by: LEANDRO SILVERIO Date: 09/13/2023 10:58
== END 2023-09-13 09:37 | disposition home or self-care (01) ==
LOC: MRI 09:36
PROVIDERS: Visit Provider Orthopaedic Surgery
DX: M54.50 Low back pain, unspecified (principal); M51.36 Other intervertebral disc degeneration, lumbar region
CPT/HCPCS: 72148

== ENCOUNTER 2023-11-06 13:58 | Outpatient (OUT) | payer OTHER, SELFPAY ==
--- OUTSIDE RECORDS SUMMARY | 2023-11-06 14:11 | XMS_ITS | CCD ---
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 [employer] Head Name Role Phone Samir Spain Attending Unavailable [...] HARSH Consulting Unavailable KUCHIPUDI, SUMIT Consulting Unavailable [place]UM[place]IL[place], DR HUGHES Primary Care Unavailable ALBARO ., DR BARRETO Attending Unavailable ALBARO ., DR BARRETO Admitting Unavailable ALBARO ., DR BARRETO Consulting Unavailable HOUSE, DR HUGHES Primary Care Unavailable ALBARO ., DR BARRETO Attending Unavailable ALBARO ., DR BARRETO Admitting Unavailable ALBARO ., DR BARRETO Consulting Unavailable [place], DR HUGHES Primary Care Unavailable ALBAOR ., DR BARRETO Attending Unavailable ALBARO ., DR BARRETO Admitting Unavailable ALBARO ., DR BARRETO Consulting Unavailable HOUSE, DR HUGHES Primary Care Unavailable ALBARO ., DR BARRETO Attending Unavailable ALBARO ., DR BARRETO Admitting Unavailable DONNA, HARSH Consulting Unavailable GEMBUS, EVANS Consulting Unavailable [place], DR HUGHES Consulting Unavailable [place], DR HUGHES Primary Care Unavailable HOUSE, DR HUGHES Attending Unavailable HOUSE, DR HUGHES Admitting Unavailable HOUSE, BACILIO P Attending Unavailable HOUSE, BACILIO P Primary Care Unavailable Evans Catherine MD Attending Unavailable HOUSE, BACILIO Abdon Primary Care Unavailable Evans Catherine MD Attending Unavailable HOUSE, BACILIO P Primary Care Unavailable HOUSE, BACILIO P Admitting Unavailable HOUSE, BACILIO P Attending Unavailable HOUSE, BACILIO P Primary Care Unavailable Evans Catherine MD Attending Unavailable HOUSE, BACILIO P Primary Care Unavailable Evans Catherine MD Attending Unavailable HOUSE, BACILIO P Primary Care Unavailable Evans Catherine MD Attending Unavailable HOUSE, BACILIO P Primary Care Unavailable Evans Catherine MD Attending Unavailable HOUSE, BACILIO P Primary Care Unavailable Problems Active Problems Problem Classification Problem [...] 05-31-2022 Episodic Other aftercare (1 source) Other alf (current) drug therapy; Translations: [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 on 08-01-2023 Patient Provided Health Data [id number] [facility] 07-15-2023 Patient Handout [id number]#[facility]. [facility] Urea nitrogen [Mass/Vol] 6.0 mg/dL Critically low 7.0-18.0 [facility] Comment on above: Performed By: #### B RENÉE, CREAbdoul #### [facility] [address] [place] [address] Dr. Cyn Hermosillo CBC AUTO DIFFon 08-25-2022 BASO # 0.1 103/ul Normal 0.0-0.1 [facility] Comment on above: Performed By: #### C BC #### [facility] [address] [place] [address] Dr. Cyn Hermosillo Basophils/100 WBC (Bld) 0.4 % Normal 0.2-2.0 [facility] Comment on above: Performed By: #### C BC #### [facility] [address] [place] [address] Dr. Cyn Hermosillo EO # 0.1 103/ul Normal 0.0-0.7 [facility] Comment on above: Performed By: #### C BC #### [facility] [address] [place] [address] Dr. Cyn Hermosillo Eosinophils/100 WBC (Bld) 0.4 % Critically low 0.9-7.0 [facility] Comment on above: Performed By: #### C BC #### [facility] [address] [place] [address] Dr. Cyn Hermosillo Erythrocyte distribution width (RBC) [Ratio] 13.2 % Normal 11.0-15.0 [facility] Comment on above: Performed By: #### C BC #### [facility] [address] [place] [address] Dr. Cyn Hermosillo Hematocrit (Bld) [Volume fraction] 27.4 % Critically low 36.0-48.0 [facility] Comment on above: Performed By: #### C BC #### [facility] [address] [place] [address] Dr. Cyn Hermosillo Hemoglobin (Bld) [Mass/Vol] 9.2 g/dL Critically low 12.0-16.0 [facility] Comment on above: Performed By: #### C BC #### [facility] [address] [place] [address] Dr. Cyn Hermosillo IG # 0.06 10e3/ul Critically high 0.00-0.03 [facility] Comment on above: Performed By: #### C BC #### [facility] [address] [place] [address] Dr. Cyn Hermosillo IG % 0.4 % Normal 0.0-0.5 [facility] Comment on above: Performed By: #### C BC #### [facility] [address] [place] [address] Dr. Cyn Hermosillo LYMPH # 2.6 103/ul Normal 1.2-3.8 [facility] Comment on above: Performed By: #### C BC #### [facility] [address] [place] [address] Dr. Cyn Hermosillo Lymphocytes/100 WBC (Bld) 17.8 % Critically low 20.5-60.0 [facility] Comment on above: Performed By: #### C BC #### [facility] [address] [place] [address] Dr. Cyn Hermosillo MANUAL DIFF REQ NO Normal [facility] Comment on above: Performed By: #### C BC #### [facility] [address] [place] [address] Dr. Cyn Hermosillo MCH (RBC) [Entitic mass] 30.0 pg Normal 26.7-34.0 [facility] Comment on above: Performed By: #### C BC #### [facility] [address] [address] [address] Cyn Hermosillo MCHC (RBC) [Mass/Vol] 33.6 g/dL Normal 29.9-35.2 [facility] Comment on above: Performed By: #### C BC #### [facility] [address] [address] [address] Cyn Hermosillo MCV (RBC) [Entitic vol] 89.3 fL Normal 81.0-99.0 [facility] Comment on above: Performed By: #### C BC #### [facility] [address] [address] [address] Cyn Hermosillo MONO # 0.9 103/ul Critically high 0.3-0.8 [facility] Comment on above: Performed By: #### C BC #### [facility] [address] [place] [address] Dr. Cyn Hermosillo Monocytes/100 WBC (Bld) 6.2 % Normal 1.7-12.0 [facility] Comment on above: Performed By: #### C BC #### [facility] [address] [address] [address] Cyn Hermosillo NEUT # 10.8 103/ul Critically high 1.4-6.5 [facility] Comment on above: Performed By: #### C BC #### [facility] [address] [place] [address] Dr. Cyn Hermosillo Neutrophils/100 WBC (Bld) 74.8 % Normal 43.0-75.0 [facility] Comment on above: Performed By: #### C BC #### [facility] [address] [address] [address] Cyn Hermosillo Platelet mean volume (Bld) [Entitic vol] 12.4 fL Normal 9.5-13.5 [facility] Comment on above: Performed By: #### C BC #### [facility] [address] [place] [address] Dr. Cyn Hermosillo PLT 174 103/ul Normal 150-450 [facility] Comment on above: Performed By: #### C BC #### [facility] [address] [address] [address] Cyn Hermosillo RBC 3.07 106/ul Critically low 4.20-5.40 [facility] Comment on above: Performed By: #### C BC #### [facility] [address] [address] [address] Cyn Hermosillo WBC 14.5 103/ul Critically high 4.0-11.[address] [facility] Comment on above: Performed By: #### C BC #### [facility] [address] [place] [address] Dr. Cyn Hermosillo CREATININEon 08-25-2022 Creatinine [Mass/Vol] 0.49 mg/dL Critically low 0.55-1.02 [facility] Comment on above: Performed By: #### B UN, CREA #### [facility] [address] [place] [address] Dr. Cyn Hermosillo EGFR-AF GIBRALTARIAN >60 Normal >=[address] [facility] Comment on above: Performed By: #### B UN, CREA #### [facility] [address] [place] [address] Dr. Cyn Hermosillo EGFR-NON AF GIBRALTARIAN >60 Normal >=60 [facility] Comment on above: Performed By: #### B UN, CREA #### [facility] [address] [place] [address] Dr. Cyn Hermosillo PREG HCG QUALon 08-24-2022 , QUAL Negative Normal NEGATIVE [facility] Comment on above: Performed By: #### C MP, TSH #### [facility] [address] [place] [address] Dr. Cyn Hermosillo CBC AUTO DIFFon 08-21-2022 BASO # 0.1 103/ul Normal 0.0-0.1 [facility] Comment on above: Performed By: #### C MP, TSH #### [facility] [address] [place] [address] Dr. Cyn Hermosillo Basophils/100 WBC (Bld) 1.0 % Normal 0.2-2.0 [facility] Comment on above: Performed By: #### C MP, TSH #### [facility] [address] [place] [address] Dr. Cyn Hermosillo EO # 0.1 103/ul Normal 0.0-0.7 [facility] Comment on above: Performed By: #### C MP, TSH #### [facility] [address] [place] [address] Dr. Cyn Hermosillo Eosinophils/100 WBC (Bld) 0.7 % Critically low 0.9-7.0 [facility] Comment on above: Performed By: #### C MP, TSH #### [facility] [address] [place] [address] Dr. Cyn Hermosillo Erythrocyte distribution width (RBC) [Ratio] 13.4 % Normal 11.0-15.0 [facility] Comment on above: Performed By: #### C MP, TSH #### [facility] [address] [place] [address] Dr. Cyn Hermosillo Hematocrit (Bld) [Volume fraction] 34.9 % Critically low 36.0-48.0 [facility] Comment on above: Performed By: #### C MP, TSH #### [facility] [address] [place] [address] Dr. Cyn Hermosillo Hemoglobin (Bld) [Mass/Vol] 11.4 g/dL Critically low 12.0-16.0 [facility] Comment on above: Performed By: #### C MP, TSH #### [facility] [address] [place] [address] Dr. Cyn Hermosillo IG # 0.02 10e3/ul Normal 0.00-0.03 [facility] Comment on above: Performed By: #### C MP, TSH #### [facility] [address] [place] [address] Dr. Cyn Hermosillo IG % 0.2 % Normal 0.0-0.5 [facility] Comment on above: Performed By: #### C MP, TSH #### [facility] [address] [place] [address] Dr. Cyn Hermosillo LYMPH # 3.2 103/ul Normal 1.2-3.8 [facility] Comment on above: Performed By: #### C MP, TSH #### [facility] [address] [place] [address] Dr. Cyn Hermosillo Lymphocytes/100 WBC (Bld) 35.9 % Normal 20.5-60.0 [facility] Comment on above: Performed By: #### C MP, TSH #### [facility] [address] [place] [address] Dr. Cyn Hermosillo MANUAL DIFF REQ NO Normal [facility] Comment on above: Performed By: #### C MP, TSH #### [facility] [address] [place] [address] Dr. Cyn Hermosillo MCH (RBC) [Entitic mass] 29.2 pg Normal 26.7-34.0 [facility] Comment on above: Performed By: #### C MP, TSH #### [facility] [address] [place] [address] Dr. Cyn Hermosillo MCHC (RBC) [Mass/Vol] 32.7 g/dL Normal 29.9-35.2 [facility] Comment on above: Performed By: #### C MP, TSH #### [facility] [address] [place] [address] Dr. Cyn Hermosillo MCV (RBC) [Entitic vol] 89.3 fL Normal 81.0-99.0 [facility] Comment on above: Performed By: #### C MP, TSH #### [facility] [address] [place] [address] Dr. Cyn Hermosillo MONO # 0.7 103/ul Normal 0.3-0.8 [facility] Comment on above: Performed By: #### C MP, TSH #### [facility] [address] [place] [address] Dr. Cyn Hermosillo Monocytes/100 WBC (Bld) 8.2 % Normal 1.7-12.0 [facility] Comment on above: Performed By: #### C MP, TSH #### [facility] [address] [place] [address] Dr. Cyn Hermosillo NEUT # 4.8 103/ul Normal 1.4-6.5 [facility] Comment on above: Performed By: #### C MP, TSH #### [facility] [address] [place] [address] Dr. Cyn Hermosillo Neutrophils/100 WBC (Bld) 54.0 % Normal 43.0-75.0 [facility] Comment on above: Performed By: #### C MP, TSH #### [facility] [address] [place] [address] Dr. Cyn Hermosillo Platelet mean volume (Bld) [Entitic vol] 11.9 fL Normal 9.5-13.5 [facility] Comment on above: Performed By: #### C MP, TSH #### [facility] [address] [place] [address] Dr. Cyn Hermosillo PLT 242 103/ul Normal 150-450 [facility] Comment on above: Performed By: #### C MP, TSH #### [facility] [address] [place] [address] Dr. Cyn Hermosillo RBC 3.91 106/ul Critically low 4.20-5.40 [facility] Comment on above: Performed By: #### C MP, TSH #### [facility] [address] [place] [address] Dr. Cyn Hermosillo WBC 8.9 103/ul Normal 4.0-11.0 [facility] Comment on above: Performed By: #### C MP, TSH #### [facility] [address] [place] [address] Dr. Cyn Hermosillo [facility]07 SARS-CoV-2 (COVID-19) RNA SHELLIE+probe Ql (Unsp spec) Not detected Normal NOT DETECTED [facility] Comment on above: Result Comment: This test is not yet approved or cleared by the [place] FDA. When there are no FDA-approved or cleared tests available, and other criteria are met, FDA can make tests available under an emergency access mechanism called an Emergency Use Authorization (EUA). The EUA for this test is supported by the [employer] of Health and Human Service's (HHS's) declaration [...] SARS-CoV-2. Performed By: #### C VDTBH #### [facility] [address] [place] [address] Dr. Cyn Hermosillo PROF CHEM 8 (BAS METB)on Anion gap [Moles/Vol] 9.6 mmol/L Normal [facility] Comment on above: Performed By: #### C MP, TSH #### [facility] [address] [place] [address] Dr. Cyn Hermosillo Calcium [Mass/Vol] 8.6 mg/dL Normal 8.5-10.1 [facility] Comment on above: Performed By: #### C MP, TSH #### [facility] [address] [place] [address] Dr. Cyn Hermosillo Chloride [Moles/Vol] 102 mmol/L Normal 98-107 [facility] Comment on above: Performed By: #### C MP, TSH #### [facility] [address] [place] [address] Dr. Cyn Hermosillo CO2 [Moles/Vol] 27.1 mmol/L Normal 21.0-32.[address] [facility] Comment on above: Performed By: #### C MP, TSH #### [facility] [address] [place] [address] Dr. Cyn Hermosillo Creatinine [Mass/Vol] 0.46 mg/dL Critically low 0.55-1.02 [facility] Comment on above: Performed By: #### C MP, TSH #### [facility] [address] [place] [address] Dr. Cyn Hermosillo EGFR-AF GIBRALTARIAN >60 Normal >=[address] [facility] Comment on above: Performed By: #### C MP, TSH #### [facility] [address] [address] [address] Cyn Hermosillo EGFR-NON AF GIBRALTARIAN >60 Normal >=60 [facility] Comment on above: Performed By: #### C MP, TSH #### [facility] [address] [address] [address] Cyn Hermosillo Glucose [Mass/Vol] 115 mg/dL Critically high 74-106 T [facility] Comment on above: Performed By: #### C MP, TSH #### [facility] [address] [address] [address] Cyn Hermosillo Potassium [Moles/Vol] 3.7 mmol/L Normal 3.5-5.1 [facility] Comment on above: Performed By: #### C MP, TSH #### [facility] [address] [address] [address] Cyn Hermosillo Sodium [Moles/Vol] 135 mmol/L Critically low 136-145 [facility] Comment on above: Performed By: #### C MP, TSH #### [facility] [address] [address] [address] Cyn Hermosillo Urea nitrogen [Mass/Vol] 15.0 mg/dL Normal 7.0-18.0 [facility] Comment on above: Performed By: #### C MP, TSH #### [facility] [address] [address] [address] Cyn Hermosillo Urea nitrogen/Creatinin e [Mass ratio] 32.6 mg/mg Normal [facility] Comment on above: Performed By: #### C MP, TSH #### [facility] [address] [address] [address] Cyn Hermosillo TYPE AND SCREENon 08-21-2022 TYPE AND SCREEN Negative Normal [facility] Comment on above: Performed By: #### C MP, TSH #### [facility] [address] [address] [address] Cyn Hermosillo CBC AUTO DIFFon 07-06-2022 BASO # 0.1 103/ul Normal 0.0-0.1 [facility] Comment on above: Performed By: #### C MP, TSH #### [facility] [address] [place] [address] Dr. Cyn Hermosillo Basophils/100 WBC (Bld) 0.7 % Normal 0.2-2.0 [facility] Comment on above: Performed By: #### C MP, TSH #### [facility] [address] [place] [address] Dr. Cyn Hermosillo EO # 0.1 103/ul Normal 0.0-0.7 [facility] Comment on above: Performed By: #### C MP, TSH #### [facility] [address] [place] [address] Dr. Cyn Hermosillo Eosinophils/100 WBC (Bld) 0.6 % Critically low 0.9-7.0 [facility] Comment on above: Performed By: #### C MP, TSH #### [facility] [address] [place] [address] Dr. Cyn Hermosillo Erythrocyte distribution width (RBC) [Ratio] 13.2 % Normal 11.0-15.0 [facility] Comment on above: Performed By: #### C MP, TSH #### [facility] [address] [place] [address] Dr. Cyn Hermosillo Hematocrit (Bld) [Volume fraction] 34.3 % Critically low 36.0-48.0 [facility] Comment on above: Performed By: #### C MP, TSH #### [facility] [address] [place] [address] Dr. Cyn Hermosillo Hemoglobin (Bld) [Mass/Vol] 11.4 g/dL Critically low 12.0-16.0 [facility] Comment on above: Performed By: #### C MP, TSH #### [facility] [address] [place] [address] Dr. Cyn Hermosillo IG # 0.04 10e3/ul Critically high 0.00-0.03 [facility] Comment on above: Performed By: #### C MP, TSH #### [facility] [address] [place] [address] Dr. Cyn Hermosillo IG % 0.4 % Normal 0.0-0.5 [facility] Comment on above: Performed By: #### C MP, TSH #### [facility] [address] [place] [address] Dr. Cyn Hermosillo LYMPH # 2.7 103/ul Normal 1.2-3.8 [facility] Comment on above: Performed By: #### C MP, TSH #### [facility] [address] [place] [address] Dr. Cyn Hermosillo Lymphocytes/100 WBC (Bld) 25.0 % Normal 20.5-60.0 [facility] Comment on above: Performed By: #### C MP, TSH #### [facility] [address] [place] [address] Dr. Cyn Hermosillo MANUAL DIFF REQ NO Normal [facility] Comment on above: Performed By: #### C EDEN, TSH #### [facility] [address] [place] [address] Dr. Cyn Hermosillo MCH (RBC) [Entitic mass] 30.2 pg Normal 26.7-34.0 [facility] Comment on above: Performed By: #### C MP, TSH #### [facility] [address] [place] [address] Dr. Cyn Hermosillo MCHC (RBC) [Mass/Vol] 33.2 g/dL Normal 29.9-35.2 [facility] Comment on above: Performed By: #### C MP, TSH #### [facility] [address] [place] [address] Dr. Cyn Hermosillo MCV (RBC) [Entitic vol] 91.0 fL Normal 81.0-99.0 [facility] Comment on above: Performed By: #### C MP, TSH #### [facility] [address] [place] [address] Dr. Cyn Hermosillo MONO # 0.7 103/ul Normal 0.3-0.8 [facility] Comment on above: Performed By: #### C MP, TSH #### [facility] [address] [place] [address] Dr. Cyn Hermosillo Monocytes/100 WBC (Bld) 6.8 % Normal 1.7-12.0 [facility] Comment on above: Performed By: #### C MP, TSH #### [facility] [address] [place] [address] Dr. Cyn Hermosillo NEUT # 7.2 103/ul Critically high 1.4-6.5 [facility] Comment on above: Performed By: #### C MP, TSH #### [facility] [address] [place] [address] Dr. Cyn Hermosillo Neutrophils/100 WBC (Bld) 66.5 % Normal 43.0-75.0 [facility] Comment on above: Performed By: #### C MP, TSH #### [facility] [address] [place] [address] Dr. Cyn Hermosillo Platelet mean volume (Bld) [Entitic vol] 12.0 fL Normal 9.5-13.5 [facility] Comment on above: Performed By: #### C MP, TSH #### [facility] [address] [place] [address] Dr. Cyn Hermosillo PLT 219 103/ul Normal 150-450 [facility] Comment on above: Performed By: #### C MP, TSH #### [facility] [address] [place] [address] Dr. Cyn Hermosillo RBC 3.77 106/ul Critically low 4.20-5.40 [facility] Comment on above: Performed By: #### C MP, TSH #### [facility] [address] [place] [address] Dr. Cyn Hermosillo WBC 10.8 103/ul Normal 4.0-11.0 [facility] Comment on above: Performed By: #### C MP, TSH #### [facility] [address] [place] [address] Dr. Cyn Hermosillo PREG HCG QUALon 07-06-2022 , QUAL Negative Normal NEGATIVE [facility] Comment on above: Performed By: #### C MP, TSH #### [facility] [address] [place] [address] Dr. Cyn Hermosillo Covid-19 PCR ([facility])on 06-08 SARS-CoV-2 (COVID-19) RNA SHELLIE+probe Ql (Unsp spec) Not detected Normal NOT DETECTED [facility] Comment on above: Result Comment: This test is not yet approved or cleared by the [place] FDA. When there are no FDA-approved or cleared tests available, and other criteria are met, FDA can make tests available under an emergency access mechanism called an Emergency Use Authorization (EUA). The EUA for this test is supported by the [employer] of Health and Human Service's (HHS's) declaration [...] consistent with SARS-CoV-2. Performed By: #### C [facility] #### [facility] [address] [place] [address] Dr. Cyn Hermosillo MRI PELVIS WO W CONon 2021 MRI PELVIS WO W CON EXAMINATION: MRI PELVIS WO W CON HISTORY: Cyst of left [...] JW JOHN Date: 2022-06-26 12:06 Normal [facility] MAMM SCREEN 3D MYKE CADon 06-19-2022 MG MAMM SCREEN 3D MYKE CAD Patient: MANJINDER BOB Exam Date: 06/19/2022 : 1975 Gender:F Ordering : DR MARY LOU COHEN . Admission #: [id number] Family : Order #: [id number] CLICK HERE TO VIEW EXAM RADIOLOGY REPORT [...] breast cancer at age 45. LOCATION: [facility] BREAST COMPOSITION: Heterogeneously dense,which may obscure small [...] MD on 06/19/2022 at 13:46 Normal [facility] US PELVIS AND TRANSVAGon US PELVIS AND TRANSVAG EXAMINATION: US PELVIS AND TRANSVAG HISTORY: Pelvic and perineal pain [...] by: JW JOHN Date: 2022-06-19 11:06 Normal [facility] PAP ACOG PANEL 2: 30 to 65on 06-04-2022 . . Normal [facility] Comment on above: Result Comment: Perf ormed at: [facility] Performed By: #### [id number] #### [facility] [address] [address] [address] Cyn Hermosillo Age Gdln ACOG Testing 30-65 Normal [facility] Comment on above: Performed By: #### [id number] #### [facility] [address] [address] [address] Cyn Hermosillo DIAGNOSIS: Comment Normal [facility] Comment on above: Result Comment: NEGA TIVE FOR INTRAEPITHELIAL LESION OR MALIGNANCY. CELLULAR CHANGES ASSOCIATED WITH INFLAMMATION ARE PRESENT. Performed at: BA Performed By: #### [id number] #### [facility] [address] [address] [address] Cyn Hermosillo HPV Aptima Negative Normal Negative [facility] Comment on above: Result Comment: This nucleic acid amplification test detects fourteen high-risk HPV types (16,18,31,33,35,39,45,51,52,56,58,59,66,68) without differentiation. Performed at: =G Performed By: #### [id number] #### [facility] [address] [place] [address] Dr. Cyn Hermosillo Methodology: Comment Normal [facility] Comment on above: Result Comment: This liquid based ThinPrep(R) pap test was screened with the use of an image guided system. Performed at: WB Performed By: #### [id number] #### [facility] [address] [place] [address] Dr. Cyn Hermosillo Note: Comment Normal [facility] Comment on above: Result Comment: The Pap smear is a screening test designed to aid in the detection of premalignant and malignant conditions of the uterine cervix. It is not a diagnostic procedure and should not be used as the sole means of detecting cervical cancer. Both false-positive and false-negative reports do occur. . Performed at: WB Performed By: #### [id number] #### [facility] [address] [place] [address] Dr. Cyn Hermosillo Performed by: Comment Normal [facility] Comment on above: Result Comment: Ramos Leo, Almond Sorter Performed at: BA Performed By: #### [id number] #### [facility] [address] [place] [address] Dr. Cyn Hermosillo Specimen adequacy: Comment Normal [facility] Comment on above: Result Comment: Sati sfactory for evaluation. Endocervical and/or squamous metaplastic cells (endocervical component) are present. Performed at: BA Performed By: #### [id number] #### [facility] [address] [place] [address] Dr. Cyn Hermosillo T4 LABCORPon 03-02-2022 T4 [Mass/Vol] 8.2 ug/dL Normal 4.5-12.0 [facility] Comment on above: Performed By: #### T [id number] #### [facility] [address] [place] [address] Dr. Cyn Hermosillo CBC AUTO DIFFon 02-28-2022 BASO # 0.1 103/ul Normal 0.0-0.1 [facility] Comment on above: Performed By: #### C BC #### [facility] [address] [place] [address] Dr. Cyn Hermosillo Basophils/100 WBC (Bld) 0.7 % Normal 0.2-2.0 [facility] Comment on above: Performed By: #### C BC #### [facility] [address] [place] [address] Dr. Cyn Hermosillo EO # 0.1 103/ul Normal 0.0-0.7 [facility] Comment on above: Performed By: #### C BC #### [facility] [address] [place] [address] Dr. Cyn Hermosillo Eosinophils/100 WBC (Bld) 0.7 % Critically low 0.9-7.0 [facility] Comment on above: Performed By: #### C BC #### [facility] [address] [place] [address] Dr. Cyn Hermosillo Erythrocyte distribution width (RBC) [Ratio] 13.3 % Normal 11.0-15.0 [facility] Comment on above: Performed By: #### C BC #### [facility] [address] [place] [address] Dr. Cyn Hermosillo Hematocrit (Bld) [Volume fraction] 36.4 % Normal 36.0-48.0 [facility] Comment on above: Performed By: #### C BC #### [facility] [address] [place] [address] Dr. Cyn Hermosillo Hemoglobin (Bld) [Mass/Vol] 11.8 g/dL Critically low 12.0-16.0 [facility] Comment on above: Performed By: #### C BC #### [facility] [address] [place] [address] Dr. Cyn Hermosillo IG # 0.03 10e3/ul Normal 0.00-0.03 [facility] Comment on above: Performed By: #### C BC #### [facility] [address] [address] [address] Cyn Hermosillo IG % 0.3 % Normal 0.0-0.5 [facility] Comment on above: Performed By: #### C BC #### [facility] [address] [place] [address] Dr. Cyn Hermosillo LYMPH # 3.2 103/ul Normal 1.2-3.8 [facility] Comment on above: Performed By: #### C BC #### [facility] [address] [place] [address] Dr. Cyn Hermosillo Lymphocytes/100 WBC (Bld) 32.7 % Normal 20.5-60.0 [facility] Comment on above: Performed By: #### C BC #### [facility] [address] [place] [address] Dr. Cyn Hermosillo MANUAL DIFF REQ NO Normal [facility] Comment on above: Performed By: #### C BC #### [facility] [address] [place] [address] Dr. Cyn Hermosillo MCH (RBC) [Entitic mass] 29.4 pg Normal 26.7-34.0 [facility] Comment on above: Performed By: #### C BC #### [facility] [address] [place] [address] Dr. Cyn Hermosillo MCHC (RBC) [Mass/Vol] 32.4 g/dL Normal 29.9-35.2 [facility] Comment on above: Performed By: #### C BC #### [facility] [address] [place] [address] Dr. Cyn Hermosillo MCV (RBC) [Entitic vol] 90.8 fL Normal 81.0-99.0 [facility] Comment on above: Performed By: #### C BC #### [facility] [address] [place] [address] Dr. Cyn Hermosillo MONO # 0.7 103/ul Normal 0.3-0.8 [facility] Comment on above: Performed By: #### C BC #### [facility] [address] [address] [address] Cyn Hermosillo Monocytes/100 WBC (Bld) 7.2 % Normal 1.7-12.0 [facility] Comment on above: Performed By: #### C BC #### [facility] [address] [address] [address] Cyn Hermosillo NEUT # 5.7 103/ul Normal 1.4-6.5 [facility] Comment on above: Performed By: #### C BC #### [facility] [address] [address] [address] Cyn Hermosillo Neutrophils/100 WBC (Bld) 58.4 % Normal 43.0-75.0 [facility] Comment on above: Performed By: #### C BC #### [facility] [address] [place] [address] Dr. Cyn Hermosillo Platelet mean volume (Bld) [Entitic vol] 11.9 fL Normal 9.5-13.5 [facility] Comment on above: Performed By: #### C BC #### [facility] [address] [place] [address] Dr. Cyn Hermosillo PLT 217 103/ul Normal 150-450 [facility] Comment on above: Performed By: #### C BC #### [facility] [address] [place] [address] Dr. Cyn Hermosillo RBC 4.01 106/ul Critically low 4.20-5.40 [facility] Comment on above: Performed By: #### C BC #### [facility] [address] [place] [address] Dr. Cyn Hermosillo WBC 9.8 103/ul Normal 4.0-11.0 [facility] Comment on above: Performed By: #### C BC #### [facility] [address] [place] [address] Dr. Cyn Hermosillo PROF 14(COMP METB)on 022 Albumin [Mass/Vol] 3.6 g/dL Normal 3.4-5.0 [facility] Comment on above: Performed By: #### C MP, TSH #### [facility] [address] [place] [address] Dr. Cyn Hermosillo Albumin/Globulin [Mass ratio] 1.0 {ratio} Normal [facility] Comment on above: Performed By: #### C MP, TSH #### [facility] [address] [address] [address] Cyn Hermosillo ALP [Catalytic activity/Vol] 59 U/L Normal 46-116 [facility] Comment on above: Performed By: #### C MP, TSH #### [facility] [address] [place] [address] Dr. Cyn Hermosillo ALT [Catalytic activity/Vol] 16 U/L Normal 14-59 [facility] Comment on above: Performed By: #### C MP, TSH #### [facility] [address] [place] [address] Dr. Cyn Hermosillo Anion gap [Moles/Vol] 11.0 mmol/L Normal [facility] Comment on above: Performed By: #### C MP, TSH #### [facility] [address] [place] [address] Dr. Cyn Hermosillo AST [Catalytic activity/Vol] U/L Critically low 15-37 [facility] Comment on above: Performed By: #### C MP, TSH #### [facility] [address] [place] [address] Dr. Cyn Hermosillo Bilirubin [Mass/Vol] 0.2 mg/dL Normal 0.2-1.0 [facility] Comment on above: Performed By: #### C MP, TSH #### [facility] [address] [place] [address] Dr. Cyn Hermosillo Calcium [Mass/Vol] 8.5 mg/dL Normal 8.5-10.[address] [facility] Comment on above: Performed By: #### C MP, TSH #### [facility] [address] [place] [address] Dr. Cyn Hermosillo Chloride [Moles/Vol] 104 mmol/L Normal 98-107 [facility] Comment on above: Performed By: #### C MP, TSH #### [facility] [address] [address] [address] Cyn Hermosillo CO2 [Moles/Vol] 27.9 mmol/L Normal 21.0-32.0 [facility] Comment on above: Performed By: #### C MP, TSH #### [facility] [address] [place] [address] Dr. Cyn Hermosillo Creatinine [Mass/Vol] 0.49 mg/dL Critically low 0.55-1.02 [facility] Comment on above: Performed By: #### C MP, TSH #### [facility] [address] [place] [address] Dr. Cyn Hermosillo EGFR-AF GIBRALTARIAN >60 Normal >=60 [facility] Comment on above: Performed By: #### C MP, TSH #### [facility] [address] [place] [address] Dr. Cyn Hermosillo EGFR-NON AF GIBRALTARIAN >60 Normal >=60 [facility] Comment on above: Performed By: #### C MP, TSH #### [facility] [address] [place] [address] Dr. Cyn Hermosillo Globulin (S) [Mass/Vol] 3.7 g/dL Normal [facility] Comment on above: Performed By: #### C MP, TSH #### [facility] [address] [place] [address] Dr. Cyn Hermosillo Glucose [Mass/Vol] 109 mg/dL Critically high 74-106 [facility] Comment on above: Performed By: #### C MP, TSH #### [facility] [address] [place] [address] Dr. Cyn Hermosillo Potassium [Moles/Vol] 3.9 mmol/L Normal 3.5-5.1 [facility] Comment on above: Performed By: #### C MP, TSH #### [facility] [address] [place] [address] Dr. Cyn Hermosillo Protein [Mass/Vol] 7.3 g/dL Normal 6.4-8.[address] [facility] Comment on above: Performed By: #### C MP, TSH #### [facility] [address] [place] [address] Dr. Cyn Hermosillo Sodium [Moles/Vol] 139 mmol/L Normal 136-145 [facility] Comment on above: Performed By: #### C MP, TSH #### [facility] [address] [address] [address] Cyn Hermosillo Urea nitrogen [Mass/Vol] 15.0 mg/dL Normal 7.0-18.0 [facility] Comment on above: Performed By: #### C MP, TSH #### [facility] [address] [address] [address] Cyn Hermosillo Urea nitrogen/Creatinin e [Mass ratio] 30.6 mg/mg Normal [facility] Comment on above: Performed By: #### C MP, TSH #### [facility] [address] [place] [address] Dr. Cyn Hermosillo TSHon 02-28-2022 TSH 0.399 uIU/mL Normal 0.358-3.740 [facility] Comment on above: Performed By: #### C MP, TSH #### [facility] [address] [place] [address] Dr. Cyn Hermosillo TSH RANGE SEE BELOW Normal [facility] Comment on above: Result Comment: <0.3 4 UIU/ml HYPERTHYROID 0.34-5.60 UIU/ml EUTHYROID >5.60 UIU/ml HYPOTHYROID Performed By: #### C MP, TSH #### [facility] [address] [place] [address] Dr. Cyn Hermosillo Complete Blood Count Auto Di ffon 11-04-2018 Basophils #/vol (Bld) 0.1 10*3/uL Normal 0.0-0.2 [facility] Comment on above: Order Comment: FAX R ESULTS TO [phone] Result Comment: PERF ORMED BY: [place] [address] PATHOLOGIST CAN SOLDERER MAITE ROMAN M.D. Performed By: #### C BC #### [place] [address] [place] Basophils/100 WBC (Bld) 0.9 % Normal . [facility] Comment on above: Order Comment: FAX R ESULTS TO [phone] Performed By: #### C BC #### [address] Eosinophils #/vol (Bld) 0.1 10*3/uL Normal 0.0-0.45 [facility] Comment on above: Order Comment: FAX R ESULTS TO [phone] Performed By: #### C BC #### [address] Eosinophils/100 WBC (Bld) 1.2 % Normal . [facility] Comment on above: Order Comment: FAX R ESULTS TO [phone] Performed By: #### C BC #### [address] Erythrocyte distribution width Ratio (RBC) 13.2 % Normal 11.9-15.3 [facility] Comment on above: Order Comment: FAX R ESULTS TO [phone] Performed By: #### C BC #### [address] Hematocrit Volume Fraction (Bld) 36.0 % Normal 34.0-46.4 [facility] Comment on above: Order Comment: FAX R ESULTS TO [phone] Performed By: #### C BC #### [address] Hemoglobin mass conc (Bld) 12.5 g/dL Normal 11.8-15.4 [facility] Comment on above: Order Comment: FAX R ESULTS TO [phone] Performed By: #### C BC #### [address] Lymphocytes #/vol (Bld) 3.7 10*3/uL Normal 1.00-4.8 [facility] Comment on above: Order Comment: FAX R ESULTS TO [phone] Performed By: #### C BC #### [address] [place] [address] [place] Lymphocytes/100 WBC (Bld) 37.6 % Normal . [facility] Comment on above: Order Comment: FAX R ESULTS TO [phone] Performed By: #### C BC #### [address] MCH Entitic mass (RBC) 31.6 pg Normal 24.7-34.3 [facility] Comment on above: Order Comment: FAX R ESULTS TO [phone] Performed By: #### C BC #### [address] MCH Entitic mass (RBC) 34.6 g/dL Normal 32.0-35.0 [facility] Comment on above: Order Comment: FAX R ESULTS TO [phone] Performed By: #### C BC #### [address] MCV Entitic volume (RBC) 91.1 fL Normal 80-100 [facility] Comment on above: Order Comment: FAX R ESULTS TO [phone] Performed By: #### C BC #### [address] Monocytes #/vol (Bld) 0.7 10*3/uL Normal 0.0-0.8 [facility] Comment on above: Order Comment: FAX R ESULTS TO [phone] Performed By: #### C BC #### [address] Monocytes/100 WBC (Bld) 7.5 % Normal . [facility] Comment on above: Order Comment: FAX R ESULTS TO [phone] Performed By: #### C BC #### [address] Neutrophils #/vol (Bld) 5.2 10*3/uL Normal 1.8-7.7 [facility] Comment on above: Order Comment: FAX R ESULTS TO [phone] Performed By: #### C BC #### [facility] [address] [place] [address] Neutrophils/100 WBC (Bld) 52.8 % Normal . [facility] Comment on above: Order Comment: FAX R ESULTS TO [phone] Performed By: #### C BC #### [facility] [address] Platelet mean volume Entitic volume (Bld) 10.2 fL Normal 6.3-10.7 [facility] Comment on above: Order Comment: FAX R ESULTS TO [phone] Performed By: #### C BC #### [facility] [address] [place] [address] Platelets #/vol (Bld) 244 10*3/uL Normal 150-450 [facility] Comment on above: Order Comment: FAX R ESULTS TO [phone] Performed By: #### C BC #### [facility] [address] [place] [address] RBC #/vol (Bld) 3.95 10*6/uL Normal 3.60-5.00 [facility] Comment on above: Order Comment: FAX R ESULTS TO [phone] Performed By: #### C BC #### [facility] [address] [place] [address] WBC #/vol (Bld) 9.9 10*3/uL Normal 3.8-11.6 [facility] Comment on above: Order Comment: FAX R ESULTS TO [phone] Performed By: #### C BC #### [facility] [address] [place] [address] Encounters Encounter Date Encounter Type Care Provider Facility Start: 10-24-2023 End: 2023 ambulatory Evans Catherine MD Facility:[facility] Start: 10-01-2023 End: 10-02-2023 ambulatory Evans Catherine MD Facility:[facility] Start: 09-24-2023 End: 09-25-2023 ambulatory Evans Catherine MD Facility:[facility] Start: 08-22-2023 End: 08-23-2023 ambulatory Evans Catherine MD Facility:[facility] Start: 08-13-2023 End: 08-13-2023 ambulatory BACILIO LIZ Facility:[facility] Start: 08-08-2023 End: 08-09-2023 ambulatory Evans Catherine MD Facility:[facility] Start: 07-30-2023 End: 07-31-2023 ambulatory Evans Catherine MD Facility:[facility] Start: 07-12-2023 End: 07-13-2023 ambulatory BACILIO LIZ Facility:[facility] Start: 08-24-2022 Encounter for preprocedural laboratory examination DR MARY LOU COHEN . [facility] Start: 08-24-2022 End: 08-25-[address] MARY LOU COHEN . Facility:[facility] Start: 08-21-2022 End: 08-22-[address] MARY LOU COHEN . Facility:[facility] Start: 08-21-2022 End: 08-22-2022 Encounter for preprocedural laboratory examination DR MARY LOU COHEN . Facility:[facility] Start: 08-20-2022 Encounter for other preprocedural examination DR MARY LOU COHEN . [facility] Start: 08-16-2022 End: 08-17-[address] BACILIO [...] End: 11-04-2018 Patient encounter procedure Samir Spain Facility:[facility] Payers Date Payer Category Payer Self-pay 2018 Unknown [id number] 1975 Unknown [id number] 2.16.84 [id number] 1977 Unknown [id number] 2.16.84 0.1.669279.3.579.2.593 1977 Unknown [id number] 2.16.84 0.1.234590.3.579.2.593 1977 Unknown [id number] 2.16.84 0.1.927751.3.579.2.593 1977 Unknown [id number] 2.16.84 0.1.970666.3.579.2.593 1977 Unknown [id number] 2.16.84 0.1.478359.3.579.2.593 1977 Unknown [id number] 2.16.84 0.1.846730.3.579.2.593 1977 Unknown [id number] 2.16.84 0.1.405402.3.579.2.593 1977 Unknown [id number] 2.16.84 0.1.028050.3.579.2.593 1977 Unknown [id number] 2.16.8 40.1.821334.3.579.2.718 1977 Unknown [id number] 2.16.8 40.1.844347.3.579.2.718 1977 Unknown [id number] 2.16.8 40.1.483067.3.579.2.718 1977 Unknown [id number] 2.16.8 40.1.716284.3.579.2.718 1977 Unknown [id number] 2.16.8 40.1.872665.3.579.2.718 1977 Unknown [id number] 2.16.8 40.1.965785.3.579.2.718 1977 Unknown [id number] 2.16.8 40.1.735809.3.579.2.718 1977 Unknown [id number] 2.16.8 40.1.666226.3.579.2.718 1959 Unknown [id number] Unknown [id number] 2.16.840 .1.191435.3.579.2.531 Clinical Note 08-24-2022 Note Date & Type Note Facility 08-24-2022 Note OPERATIVE NOTE OPERATION DATE: 09/20/2022 PROCEDURE: Da Flako assisted laparoscopic hysterectomy, bilateral salpingectomy with cystoscopy. PREOPERATIVE DIAGNOSIS: Abnormal uterine bleeding, dysmenorrhea, pelvic pain, Mittelschmerz thickened endometrium. POSTOPERATIVE DIAGNOSIS: Abnormal uterine bleeding, dysmenorrhea, pelvic pain, Mittelschmerz thickened endometrium. ANESTHESIA: General. SURGEON: Mary Lou Cohen D.O. SEISMOGRAPHER: ESTEFANY Navarro URINE OUTPUT: Yellow and clear. [...] Anesthesia first. Patient tolerated procedure well. [facility] Clinical Note 07-06-2022 Note Date & Type Note Facility 07-06-2022 Note OPERATIVE NOTE OPERATION DATE: 07/06/2022 PROCEDURE: D AND C hysteroscopy. PREOPERATIVE DIAGNOSIS: Menorrhagia, thickened endometrial lining. POSTOPERATIVE DIAGNOSIS: Menorrhagia, thickened endometrial lining. ANESTHESIA: General. SURGEON: Mary Lou Cohen D.O. SEISMOGRAPHER: None. BLOOD LOSS: 5 mL. FINDINGS: Normal [...] the Recovery Room in stable condition. [facility] Summary Purpose Family History No Family History Records FoundNo Family History Records FoundNo Family History Records Found Advance Directives No Advanced Directives Records FoundNo Advanced Directives Records FoundNo Advanced Directives Records Found Additional Source Comments INFORMATION SOURCE (unrecogn ized section and content) DATE CREATED AUTHOR 11/19/2018 [facility] DATE CREATED AUTHOR AUTHOR'S ORGANIZ ATION 02/19/2023 [facility] DATE CREATED AUTHOR AUTHOR'S ORGANIZ ATION 2023 [facility] FOR RECORDS PERTAINING TO PATIENTS WHO ARE [...] BE BASED ON THE PRIMARY CLINICAL RECORDS. [employer] provides no warranty or guarantee of the accuracy or completeness of information in this document.
[2023-11-06 15:16] LABS: Free T3 2.93 pg/mL (2.18-3.98); Thyroid Stimulating Hormone 0.495 uIU/mL (0.358-3.740)
[2023-11-06 15:28] LABS: Free T4 0.82 ng/dL (0.76-1.46)
== END 2023-11-06 13:59 | disposition home or self-care (01) ==
LOC: LAB 14:00
PROVIDERS: Visit Provider Internal Medicine
DX: O99.282 Endocrine, nutritional and metabolic diseases complicating pregnancy, second trimester (principal); E06.3 Autoimmune thyroiditis
CPT/HCPCS: 36415; 82306; 84439; 84443; 84481

== ENCOUNTER 2024-12-24 12:18 | Outpatient (REF) | payer OTHER, SELFPAY ==
--- OUTSIDE RECORDS SUMMARY | 2024-12-24 12:23 | XMS_ITS | CCD ---
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 Name Role Phone ALBARO ., DR BARRETO Consulting Unavailable HOUSE, DR HUGHES Primary Care Unavailable ALBARO ., DR BARRETO Attending Unavailable ALBARO ., DR BARRETO Admitting Unavailable AMALIA, CYRUS Consulting Unavailable HOUSE, DR HUGHES Primary Care Unavailable ALBARO ., DR BARRETO Attending Unavailable ALBARO ., DR BARRETO Admitting Unavailable ALBARO ., DR BARRETO Consulting Unavailable Ziebdevyn, Jw Consulting Unavailable ALBARO ., DR BARRETO Consulting Unavailable HOUSE, DR HUGHES Primary Care Unavailable ALBARO ., DR BARRETO Attending Unavailable ALBARO ., DR BARRETO Admitting Unavailable ZiebJw shepard Consulting Unavailable ALBARO ., DR BARRETO Consulting Unavailable HOUSE, DR HUGHES Primary Care Unavailable ALBARO ., DR BARRETO Attending Unavailable ALBARO ., DR BARRETO Admitting Unavailable SHARP, HARSH Consulting Unavailable KUCHIPUDI, SUMIT Consulting Unavailable HOUSE, DR HUGHES Primary Care [...] HARSH Consulting Unavailable GEMBUS, EVANS Consulting Unavailable LYMAN, DR HUGHES Consulting Unavailable LYMAN, DR HUHGES Primary Care Unavailable HOUSE, DR HUGHES Attending Unavailable HOUSE, DR HUGHES Admitting Unavailable NON STAFF Primary Care Unavailable Michael, Tory M Admitting Unavailable Michael, Tory M Attending Unavailable HOUSE, DO SAUL P Attending Unavailable HOUSE, SAUL P Primary Care Unavailable HOUSE, DO SAUL P Attending Unavailable HOUSE, SAUL P Primary Care Unavailable HOUSE, DO SAUL P Attending Unavailable HOUSE, SAUL P Primary Care Unavailable HOUSE, SAUL P Primary Care Unavailable Evans Catherine MD Attending Unavailable HOUSE, SAUL P Primary Care Unavailable Evans Catherine MD Attending Unavailable HOUSE, DO SAUL Coppola Attending Unavailable HOUSE, SAUL P Primary Care Unavailable Evans Catherine MD Attending Unavailable HOUSE, SAUL P Primary Care Unavailable Unavailable Primary Care Provider UnavailRICHELLE Sr Attending Unavailable Medications Current Medications Medication Drug Class(es) Dates Sig (Normalized) Sig (Original) ARIPiprazole 5 mg oral tablet (2 sources) Atypical Antipsychotic take 1 tablet by mouth once daily ARIPiprazole (Abilify) 5 MG tablet TAKE 1 AND 1/2 TABLETS ORALLY ONCE A DAY 90 DAYS Active atomoxetine 80 mg oral capsule (4 sources) Norepinephrine Reuptake Inhibitor Start: 12-15-2022 take 1 capsule by mouth in the morning atomoxetine (Strattera) 80 MG capsule Take 80 mg by mouth in the morning. 12/15/2022 Active levothyroxine sodium 0.075 mg oral tablet (6 sources) l-Thyroxine Start: 11-16-2024 End: 11-14-2025 take 1 tablet by mouth before mealtime levothyroxine (Synthroid, Levoxyl) 75 MCG tablet Indications: Autoimmune thyroiditis (CMS/HCC) Take 1 tablet (75 mcg) by mouth in the morning. Take before meals. 90 tablet 3 11/19/2024 11/14/2025 Active take 1 tablet by mouth before me altime levothyroxine (Synthroid, Levoxyl) 75 MCG tablet Take 75 mcg by mouth in the morning. Take before meals. Active pantoprazole 40 mg delayed release oral tablet (4 sources) Proton Pump Inhibitor take 1 tablet by mouth once daily pantoprazole (ProtoNix) 40 MG EC tablet Take 40 mg by mouth 1 (one) time each day at the same time. Active Problems Active Problems Problem Classification Problem Date Documented Da te Episodic/Chronic Administrative/social admission (2 sources) Patient encounter status; Translations: [Dietary counseling and surveillance] 11-19-2024 Episodic Anxiety disorders (1 source) Anxiety disorder, unspecified; Translations: [ANXIETY DISORDER UNSPECIFIED] Onset: 03-02-2022 Chronic Esophageal disorders (1 source) Gastro-esophageal reflux disease without esophagitis; Translations: [GERD WITHOUT ESOPHAGITIS] Onset: 07-12-2022 Chronic Essential hypertension (1 source) Essential (primary) hypertension; Translations: [ESSENTIAL PRIMARY HYPERTENSION] Onset: 03-02-2022 Chronic Menstrual disorders (6 sources) Dysmenorrhea, unspecified; Translations: [Excessive and frequent menstruation with regular cycle] Onset: 07-06-2022 Chronic Nutritional deficiencies (2 sources) Vitamin D deficiency; Translations: [Vitamin D deficiency, unspecified] 11-19-2024 Chronic Other connective tissue disease (1 source) Pain in right foot; Translations: [Pain in right foot] Onset: 02-05-2024 Episodic Other female genital disorders (5 sources) Abnormal [...] BODY STRUC] Onset: 08-24-2022 Chronic Thyroid disorders (9 sources) Hypothyroidism, unspecified; Translations: [Marina thyroiditis] Onset: 02-28-2022 Chronic Unclassified (4 sources) CONTACT [...] 05-31-2022 Episodic Other aftercare (1 source) Other 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 77 ng/dL [facility] TSHon 11-14-2024 TSH Qn 0.556 m[IU]/L [facility] XR foot RT min 3V*on 024 XR foot RT min 3V* [facility] [place] [address] [place] [address] XRay Report Signed Patient: Manjinder Bob MR#: [id number] 68 : 1975 Acct:[id number] Age/Sex: 48 / F ADM Date: 02/05/24 Loc: [facility]DUCLY Room: Type: [facility] Attending Dr: Tory Rodriguez APRN Copies to: Tory Rodriguez APRN Ordering Provider: Tory Rodriguez APRN Date of Service: 02/05/24 XR/XR foot RT min 3V*: RIGHT FOOT TOE INJURY 3 views right foot plain film COMPARISON:None HISTORY: Right foot injury. Right anterior foot pain. ACUTE FINDINGS: None DEGENERATIVE CHANGE: Posterior calcaneal spurring SOFT TISSUE FINDINGS: Unremarkable JOINT EFFUSION: None POSTOP CHANGES: None BONE MINERALIZATION: Adequate XR/XR foot RT min 3V* IMPRESSION: No acute findings. Impression dictated by: Og Esparza M.D.02/05/2024 9:59 AM Dictation Location: [place] [address] Transcribed By: [facility] 02/05/24 0959 Dictated By: Og Esparza DO 02/05/24 0959 Signed By: 02/05/24 0959 Normal [facility] BUNon 08-25-2022 Urea nitrogen [Mass/Vol] 6.0 mg/dL Critically low 7.0-18.0 [facility] Comment on above: Performed By: #### B RUFINO CHINCHILLA #### [facility] [address] [address] [address] Cyn Hermosillo CBC AUTO DIFFon 08-25-2022 BASO # 0.1 103/ul Normal 0.0-0.1 [facility] Comment on above: Performed By: #### C BC #### [facility] [address] [address] [address] Cyn Hermosillo Basophils/100 WBC (Bld) 0.4 % Normal 0.2-2.0 [facility] Comment on above: Performed By: #### C BC #### [facility] [address] [address] [address] Cyn Heromsillo EO # 0.1 103/ul Normal 0.0-0.7 [facility] Comment on above: Performed By: #### C BC #### [facility] [address] [address] [address] Cyn Hermosillo Eosinophils/100 WBC (Bld) 0.4 % Critically low 0.9-7.0 [facility] Comment on above: Performed By: #### C BC #### [facility] [address] [place] [address] Dr. Cyn Hermosillo Erythrocyte distribution width (RBC) [Ratio] 13.2 % Normal 11.0-15.0 [facility] Comment on above: Performed By: #### C BC #### [facility] [address] [place] [address] Dr. Cyn Hermosillo Hematocrit (Bld) [Volume fraction] 27.4 % Critically low 36.0-48.0 [facility] Comment on above: Performed By: #### C BC #### [facility] [address] [place] [address] Dr. Cyn Hermosillo Hemoglobin (Bld) [Mass/Vol] 9.2 g/dL Critically low 12.0-16.0 [facility] Comment on above: Performed By: #### C BC #### [facility] [address] [place] [address] Dr. Cyn Hermosillo IG # 0.06 10e3/ul Critically high 0.00-0.03 [facility] Comment on above: Performed By: #### C BC #### [facility] [address] [address] [address] Cyn Hermosillo IG % 0.4 % Normal 0.0-0.5 [facility] Comment on above: Performed By: #### C BC #### [facility] [address] [address] [address] Cyn Hermosillo LYMPH # 2.6 103/ul Normal 1.2-3.8 [facility] Comment on above: Performed By: #### C BC #### [facility] [address] [address] [address] Cyn Hermosillo Lymphocytes/100 WBC (Bld) 17.8 % Critically low 20.5-60.0 [facility] Comment on above: Performed By: #### C BC #### [facility] [address] [place] [address] Dr. Cyn Hermosillo MANUAL DIFF REQ NO Normal [facility] Comment on above: Performed By: #### C BC #### [facility] [address] [place] [address] Dr. Cyn Hermosillo MCH (RBC) [Entitic mass] 30.0 pg Normal 26.7-34.0 [facility] Comment on above: Performed By: #### C BC #### [facility] [address] [place] [address] Dr. Cyn Hermosillo MCHC (RBC) [Mass/Vol] 33.6 g/dL Normal 29.9-35.2 [facility] Comment on above: Performed By: #### C BC #### [facility] [address] [place] [address] Dr. Cyn Hermosillo MCV (RBC) [Entitic vol] 89.3 fL Normal 81.0-99.0 [facility] Comment on above: Performed By: #### C BC #### [facility] [address] [place] [address] Dr. Cyn Hermosillo MONO # 0.9 103/ul Critically high 0.3-0.8 [facility] Comment on above: Performed By: #### C BC #### [facility] [address] [place] [address] Dr. Cyn Hermosillo Monocytes/100 WBC (Bld) 6.2 % Normal 1.7-12.0 [facility] Comment on above: Performed By: #### C BC #### [facility] [address] [address] [address] Cyn Hermosillo NEUT # 10.8 103/ul Critically high 1.4-6.5 [facility] Comment on above: Performed By: #### C BC #### [facility] [address] [place] [address] Dr. Cyn Hermosillo Neutrophils/100 WBC (Bld) 74.8 % Normal 43.0-75.0 [facility] Comment on above: Performed By: #### C BC #### [facility] [address] [place] [address] Dr. Cyn Hermosillo Platelet mean volume (Bld) [Entitic vol] 12.4 fL Normal 9.5-13.5 [facility] Comment on above: Performed By: #### C BC #### [facility] [address] [place] [address] Dr. Cyn Hermosillo PLT 174 103/ul Normal 150-450 [facility] Comment on above: Performed By: #### C BC #### [facility] [address] [place] [address] Dr. Cyn Hermosillo RBC 3.07 106/ul Critically low 4.20-5.40 [facility] Comment on above: Performed By: #### C BC #### [facility] [address] [place] [address] Dr. Cyn Hermosillo WBC 14.5 103/ul Critically high 4.0-11.0 [facility] Comment on above: Performed By: #### C BC #### [facility] [address] [place] [address] Dr. Cyn Hermosillo CREATININEon 08-25-2022 Creatinine [Mass/Vol] 0.49 mg/dL Critically low 0.55-1.02 [facility] Comment on above: Performed By: #### B UN, CREA #### [facility] [address] [place] [address] Dr. Cyn Hermosillo EGFR-AF WALLISIAN >60 Normal >=60 [facility] Comment on above: Performed By: #### B UN, CREA #### [facility] [address] [place] [address] Dr. Cyn Hermosillo EGFR-NON AF WALLISIAN >60 Normal >=60 [facility] Comment on above: Performed By: #### B UN, CREA #### [facility] [address] [place] [address] Dr. Cyn Hermosillo PREG HCG QUALon 08-24-2022 , QUAL Negative Normal NEGATIVE [facility] Comment on above: Performed By: #### C MP, TSH #### [facility] [address] [place] [address] Dr. Cyn Hermosillo CBC AUTO DIFFon 08-21-2022 BASO # 0.1 103/ul Normal 0.0-0.1 [facility] Comment on above: Performed By: #### C MP, TSH #### [facility] [address] [place] [address] Dr. Cyn Hermosillo Basophils/100 WBC (Bld) 1.0 % Normal 0.2-2.0 [facility] Comment on above: Performed By: #### C MP, TSH #### [facility] [address] [place] [address] Dr. Cyn Hermosillo EO # 0.1 103/ul Normal 0.0-0.7 [facility] Comment on above: Performed By: #### C MP, TSH #### [facility] [address] [place] [address] Dr. Cyn Hermosillo Eosinophils/100 WBC (Bld) 0.7 % Critically low 0.9-7.0 [facility] Comment on above: Performed By: #### C MP, TSH #### [facility] [address] [place] [address] Dr. Cyn Hermosillo Erythrocyte distribution width (RBC) [Ratio] 13.4 % Normal 11.0-15.0 [facility] Comment on above: Performed By: #### C MP, TSH #### [facility] [address] [place] [address] Dr. Cyn Hermosillo Hematocrit (Bld) [Volume fraction] 34.9 % Critically low 36.0-48.0 [facility] Comment on above: Performed By: #### C MP, TSH #### [facility] [address] [place] [address] Dr. Cyn Hermosillo Hemoglobin (Bld) [Mass/Vol] 11.4 g/dL Critically low 12.0-16.0 [facility] Comment on above: Performed By: #### C MP, TSH #### [facility] [address] [place] [address] Dr. Cyn Hermosillo IG # 0.02 10e3/ul Normal 0.00-0.03 [facility] Comment on above: Performed By: #### C MP, TSH #### [facility] [address] [place] [address] Dr. Cyn Hermosillo IG % 0.2 % Normal 0.0-0.5 [facility] Comment on above: Performed By: #### C MP, TSH #### [facility] [address] [place] [address] Dr. Cyn Hermosillo LYMPH # 3.2 103/ul Normal 1.2-3.8 [facility] Comment on above: Performed By: #### C MP, TSH #### [facility] [address] [place] [address] Dr. Cyn Hermosillo Lymphocytes/100 WBC (Bld) 35.9 % Normal 20.5-60.0 [facility] Comment on above: Performed By: #### C MP, TSH #### [facility] [address] [place] [address] Dr. Cyn Hermosillo MANUAL DIFF REQ NO Normal [facility] Comment on above: Performed By: #### C MP, TSH #### [facility] [address] [place] [address] Dr. Cyn Hermosillo MCH (RBC) [Entitic mass] 29.2 pg Normal 26.7-34.0 [facility] Comment on above: Performed By: #### C MP, TSH #### [facility] [address] [place] [address] Dr. Cyn Hermosillo MCHC (RBC) [Mass/Vol] 32.7 g/dL Normal 29.9-35.2 [facility] Comment on above: Performed By: #### C MP, TSH #### [facility] [address] [place] [address] Dr. Cyn Hermosillo MCV (RBC) [Entitic vol] 89.3 fL Normal 81.0-99.0 [facility] Comment on above: Performed By: #### C MP, TSH #### [facility] [address] [place] [address] Dr. Cyn Hermosillo MONO # 0.7 103/ul Normal 0.3-0.8 [facility] Comment on above: Performed By: #### C MP, TSH #### [facility] [address] [place] [address] Dr. Cyn Hermosillo Monocytes/100 WBC (Bld) 8.2 % Normal 1.7-12.0 [facility] Comment on above: Performed By: #### C MP, TSH #### [facility] [address] [place] [address] Dr. Cyn Hermosillo NEUT # 4.8 103/ul Normal 1.4-6.5 [facility] Comment on above: Performed By: #### C MP, TSH #### [facility] [address] [place] [address] Dr. Cyn Hermosillo Neutrophils/100 WBC (Bld) 54.0 % Normal 43.0-75.0 [facility] Comment on above: Performed By: #### C MP, TSH #### [facility] [address] [place] [address] Dr. Cyn Hermosillo Platelet mean volume (Bld) [Entitic vol] 11.9 fL Normal 9.5-13.5 [facility] Comment on above: Performed By: #### C MP, TSH #### [facility] [address] [place] [address] Dr. Cyn Hermosillo PLT 242 103/ul Normal 150-450 [facility] Comment on above: Performed By: #### C MP, TSH #### [facility] [address] [place] [address] Dr. Cyn Hermosillo RBC 3.91 106/ul Critically low 4.20-5.40 [facility] Comment on above: Performed By: #### C MP, TSH #### [facility] [address] [place] [address] Dr. Cyn Hermosillo WBC 8.9 103/ul Normal 4.0-11.0 [facility] Comment on above: Performed By: #### C MP, TSH #### [facility] [address] [place] [address] Dr. Cyn Hermosillo [facility] SARS-CoV-2 (COVID-19) RNA SHELLIE+probe Ql (Unsp spec) Not detected Normal NOT DETECTED [facility] Comment on above: Result Comment: This test is not yet approved or cleared by the [place] FDA. When there are no FDA-approved or cleared tests available, and other criteria are met, FDA can make tests available under an emergency access mechanism called an Emergency Use Authorization (EUA). The EUA for this test is supported by the [place] of Health and Human Service's (HHS's) declaration [...] SARS-CoV-2. Performed By: #### C VDTBH #### [facility] [address] [place] [address] Dr. Cyn Hermosillo PROF CHEM 8 (BAS METB)on Anion gap [Moles/Vol] 9.6 mmol/L Normal [facility] Comment on above: Performed By: #### C MP, TSH #### [facility] [address] [place] [address] Dr. Cyn Hermosillo Calcium [Mass/Vol] 8.6 mg/dL Normal 8.5-10.1 [facility] Comment on above: Performed By: #### C MP, TSH #### [facility] [address] [address] [address] Cyn Hermosillo Chloride [Moles/Vol] 102 mmol/L Normal 98-107 [facility] Comment on above: Performed By: #### C MP, TSH #### [facility] [address] [address] [address] Cyn Hermosillo CO2 [Moles/Vol] 27.1 mmol/L Normal 21.0-32.0 [facility] Comment on above: Performed By: #### C MP, TSH #### [facility] [address] [address] [address] Cyn Hermosillo Creatinine [Mass/Vol] 0.46 mg/dL Critically low 0.55-1.02 [facility] Comment on above: Performed By: #### C MP, TSH #### [facility] [address] [place] [address] Dr. Cyn Hermosillo EGFR-AF WALLISIAN >60 Normal >=60 [facility] Comment on above: Performed By: #### C MP, TSH #### [facility] [address] [address] [address] Cyn Hermosillo EGFR-NON AF WALLISIAN >60 Normal >=60 [facility] Comment on above: Performed By: #### C MP, TSH #### [facility] [address] [address] [address] Cyn Hermosillo Glucose [Mass/Vol] 115 mg/dL Critically high 74-106 [facility] Comment on above: Performed By: #### C MP, TSH #### [facility] [address] [address] [address] Cyn Hermosillo Potassium [Moles/Vol] 3.7 mmol/L Normal 3.5-5.1 [facility] Comment on above: Performed By: #### C MP, TSH #### [facility] [address] [address] [address] Cyn Hermosillo Sodium [Moles/Vol] 135 mmol/L Critically low 136-145 [facility] Comment on above: Performed By: #### C MP, TSH #### [facility] [address] [place] [address] Dr. Cyn Hermosillo Urea nitrogen [Mass/Vol] 15.0 mg/dL Normal 7.0-18.0 [facility] Comment on above: Performed By: #### C MP, TSH #### [facility] [address] [place] [address] Dr. Cyn Hermosillo Urea nitrogen/Creatinine [Mass ratio] 32.6 mg/mg Normal [facility] Comment on above: Performed By: #### C MP, TSH #### [facility] [address] [place] [address] Dr. Cyn Hermosillo TYPE AND SCREENon 08-21-2022 TYPE AND SCREEN Negative Normal [facility] Comment on above: Performed By: #### C MP, TSH #### [facility] [address] [place] [address] Dr. Cyn Hermosillo CBC AUTO DIFFon 07-06-2022 BASO # 0.1 103/ul Normal 0.0-0.1 [facility] Comment on above: Performed By: #### C MP, TSH #### [facility] [address] [place] [address] Dr. Cyn Hermosillo Basophils/100 WBC (Bld) 0.7 % Normal 0.2-2.0 [facility] Comment on above: Performed By: #### C MP, TSH #### [facility] [address] [place] [address] Dr. Cyn Hermosillo EO # 0.1 103/ul Normal 0.0-0.7 [facility] Comment on above: Performed By: #### C MP, TSH #### [facility] [address] [place] [address] Dr. Cyn Hermosillo Eosinophils/100 WBC (Bld) 0.6 % Critically low 0.9-7.0 [facility] Comment on above: Performed By: #### C MP, TSH #### [facility] [address] [place] [address] Dr. Cyn Hermosillo Erythrocyte distribution width (RBC) [Ratio] 13.2 % Normal 11.0-15.0 [facility] Comment on above: Performed By: #### C MP, TSH #### [facility] [address] [place] [address] Dr. Cyn Hermosillo Hematocrit (Bld) [Volume fraction] 34.3 % Critically low 36.0-48.0 [facility] Comment on above: Performed By: #### C MP, TSH #### [facility] [address] [place] [address] Dr. Cyn Hermosillo Hemoglobin (Bld) [Mass/Vol] 11.4 g/dL Critically low 12.0-16.0 [facility] Comment on above: Performed By: #### C MP, TSH #### [facility] [address] [place] [address] Dr. Cyn Hermosillo IG # 0.04 10e3/ul Critically high 0.00-0.03 [facility] Comment on above: Performed By: #### C MP, TSH #### [facility] [address] [place] [address] Dr. Cyn Hermosillo IG % 0.4 % Normal 0.0-0.5 [facility] Comment on above: Performed By: #### C MP, TSH #### [facility] [address] [place] [address] Dr. Cyn Hermosillo LYMPH # 2.7 103/ul Normal 1.2-3.8 [facility] Comment on above: Performed By: #### C MP, TSH #### [facility] [address] [place] [address] Dr. Cyn Hermosillo Lymphocytes/100 WBC (Bld) 25.0 % Normal 20.5-60.0 [facility] Comment on above: Performed By: #### C MP, TSH #### [facility] [address] [place] [address] Dr. Cyn Hermosillo MANUAL DIFF REQ NO Normal [facility] Comment on above: Performed By: #### C MP, TSH #### [facility] [address] [place] [address] Dr. Cyn Hermosillo MCH (RBC) [Entitic mass] 30.2 pg Normal 26.7-34.0 [facility] Comment on above: Performed By: #### C MP, TSH #### [facility] [address] [address] [address] Cyn Hermosillo MCHC (RBC) [Mass/Vol] 33.2 g/dL Normal 29.9-35.2 [facility] Comment on above: Performed By: #### C MP, TSH #### [facility] Laboratory [address] [place] [address] Dr. Cyn Hermosillo MCV (RBC) [Entitic vol] 91.0 fL Normal 81.0-99.0 [facility] Comment on above: Performed By: #### C MP, TSH #### [facility] [address] [place] [address] Dr. Cyn Hermosillo MONO # 0.7 103/ul Normal 0.3-0.8 [facility] Comment on above: Performed By: #### C MP, TSH #### [facility] [address] [place] [address] Dr. Cyn Hermosillo Monocytes/100 WBC (Bld) 6.8 % Normal 1.7-12.0 [facility] Comment on above: Performed By: #### C MP, TSH #### [facility] [address] [place] [address] Dr. Cyn Hermosillo NEUT # 7.2 103/ul Critically high 1.4-6.5 [facility] Comment on above: Performed By: #### C MP, TSH #### [facility] [address] [place] [address] Dr. Cyn Hermosillo Neutrophils/100 WBC (Bld) 66.5 % Normal 43.0-75.0 [facility] Comment on above: Performed By: #### C MP, TSH #### [facility] [address] [place] [address] Dr. Cyn Hermosillo Platelet mean volume (Bld) [Entitic vol] 12.0 fL Normal 9.5-13.5 [facility] Comment on above: Performed By: #### C MP, TSH #### [facility] [address] [place] [address] Dr. Cyn Hermosillo PLT 219 103/ul Normal 150-450 [facility] Comment on above: Performed By: #### C MP, TSH #### [facility] [address] [address] [address] Cyn Hermosillo RBC 3.77 106/ul Critically low 4.20-5.40 [facility] Comment on above: Performed By: #### C MP, TSH #### [facility] [address] [address] [address] Cyn Hermosillo WBC 10.8 103/ul Normal 4.0-11.0 [facility] Comment on above: Performed By: #### C MP, TSH #### [facility] [address] [address] [address] Cyn Hermosillo PREG HCG QUALon 07-06-2022 , QUAL Negative Normal NEGATIVE [facility] Comment on above: Performed By: #### C MP, TSH #### [facility] [address] [address] [address] Cyn Hermosillo Covid-19 PCR (CVDTBH)on 06-08 SARS-CoV-2 (COVID-19) RNA SHELLIE+probe Ql (Unsp spec) Not detected Normal NOT DETECTED [facility] Comment on above: Result Comment: This test is not yet approved or cleared by the [place] FDA. When there are no FDA-approved or cleared tests available, and other criteria are met, FDA can make tests available under an emergency access mechanism called an Emergency Use Authorization (EUA). The EUA for this test is supported by the [place] of Health and Human Service's (HHS's) declaration [...] SARS-CoV-2. Performed By: #### C VDTBH #### [facility] [address] [address] [address] Cyn Hermosillo MRI PELVIS WO W [...] JW JOHN Date: 2022-06-26 12:06 Normal [facility] MAMM SCREEN 3D MYKE CADon 06-19-2022 MG MAMM SCREEN 3D MYKE CAD Patient: MANJINDER BOB Exam Date: 06/19/2022 : 1975 Gender:F Ordering : DR MARY LOU COHEN . Admission #: [id number] Family : Order #: [id number] CLICK HERE TO VIEW EXAM RADIOLOGY REPORT [...] breast cancer at age 45. LOCATION: [facility] BREAST COMPOSITION: Heterogeneously dense,which may obscure [...] Holland MD on 06/19/2022 at 13:46 Normal [facility] US PELVIS AND TRANSVAGon US PELVIS [...] by: JW JOHN Date: 2022-06-19 11:06 Normal [facility] PAP ACOG PANEL 2: 30 to 65on 06-04-2022 . . Normal [facility] Comment on above: Result Comment: Perf ormed at: BA Performed By: #### [id number] #### [facility] [address] [address] [address] Cyn Hermosillo Age Gdln ACOG Testing 30-65 Normal [facility] Comment on above: Performed By: #### [id number] #### [facility] [address] [address] [address] Cyn Hermosillo DIAGNOSIS: Comment Normal [facility] Comment on above: Result Comment: NEGA TIVE FOR INTRAEPITHELIAL LESION OR MALIGNANCY. CELLULAR CHANGES ASSOCIATED WITH INFLAMMATION ARE PRESENT. Performed at: BA Performed By: #### [id number] #### [facility] [address] [address] [address] Cyn Hermosillo HPV Aptima Negative Normal Negative [facility] Comment on above: Result Comment: This nucleic acid amplification test detects fourteen high-risk HPV types (16,18,31,33,35,39,45,51,52,56,58,59,66,68) without differentiation. Performed at: =G Performed By: #### [id number] #### [facility] [address] [address] [address] Cyn Hermosillo Methodology: Comment Normal [facility] Comment on above: Result Comment: This liquid based ThinPrep(R) pap test was screened with the use of an image guided system. Performed at: WB Performed By: #### [id number] #### [facility] [address] [address] [address] Cyn Hermosillo Note: Comment Normal [facility] Comment on above: Result Comment: The Pap smear is a screening test designed to aid in the detection of premalignant and malignant conditions of the uterine cervix. It is not a diagnostic procedure and should not be used as the sole means of detecting cervical cancer. Both false-positive and false-negative reports do occur. . Performed at: WB Performed By: #### [id number] #### [facility] [address] [place] [address] Dr. Cyn Hermosillo Performed by: Comment Normal [facility] Comment on above: Result Comment: Ramos Leo, Boxing Trainer Performed at: Performed By: #### [id number] #### [facility] [address] [place] [address] Dr. Cyn Hermosillo Specimen adequacy: Comment Normal [facility] Comment on above: Result Comment: Sati sfactory for evaluation. Endocervical and/or squamous metaplastic cells (endocervical component) are present. Performed at: Performed By: #### [id number] #### [facility] [address] [place] [address] Dr. Cyn Hermosillo T4 LABCORPon 03-02-2022 T4 [Mass/Vol] 8.2 ug/dL Normal 4.5-12.0 [facility] Comment on above: Performed By: #### T 4LC #### [facility] [address] [place] [address] Dr. Cyn Hermosillo CBC AUTO DIFFon 02-28-2022 BASO # 0.1 103/ul Normal 0.0-0.1 [facility] Comment on above: Performed By: #### C BC #### [facility] [address] [place] [address] Dr. Cyn Hermosillo Basophils/100 WBC (Bld) 0.7 % Normal 0.2-2.0 [facility] Comment on above: Performed By: #### C BC #### [facility] [address] [place] [address] Dr. Cyn Hermosillo EO # 0.1 103/ul Normal 0.0-0.7 [facility] Comment on above: Performed By: #### C BC #### [facility] [address] [place] [address] Dr. Cyn Hermosillo Eosinophils/100 WBC (Bld) 0.7 % Critically low 0.9-7.0 [facility] Comment on above: Performed By: #### C BC #### [facility] [address] [place] [address] Dr. Cyn Hermosillo Erythrocyte distribution width (RBC) [Ratio] 13.3 % Normal 11.0-15.0 [facility] Comment on above: Performed By: #### C BC #### [facility] [address] [place] [address] Dr. Cyn Hermosillo Hematocrit (Bld) [Volume fraction] 36.4 % Normal 36.0-48.0 [facility] Comment on above: Performed By: #### C BC #### [facility] [address] [place] [address] Dr. Cyn Hermosillo Hemoglobin (Bld) [Mass/Vol] 11.8 g/dL Critically low 12.0-16.0 [facility] Comment on above: Performed By: #### C BC #### [facility] [address] [place] [address] Dr. Cyn Hermosillo IG # 0.03 10e3/ul Normal 0.00-0.03 [facility] Comment on above: Performed By: #### C BC #### [facility] [address] [place] [address] Dr. Cyn Hermosillo IG % 0.3 % Normal 0.0-0.5 [facility] Comment on above: Performed By: #### C BC #### [facility] [address] [place] [address] Dr. Cyn Hermosillo LYMPH # 3.2 103/ul Normal 1.2-3.8 [facility] Comment on above: Performed By: #### C BC #### [facility] [address] [place] [address] Dr. Cyn Hermosillo Lymphocytes/100 WBC (Bld) 32.7 % Normal 20.5-60.0 [facility] Comment on above: Performed By: #### C BC #### [facility] [address] [place] [address] Dr. Cyn Hermosillo MANUAL DIFF REQ NO Normal [facility] Comment on above: Performed By: #### C BC #### [facility] [address] [place] [address] Dr. Cyn Hermosillo MCH (RBC) [Entitic mass] 29.4 pg Normal 26.7-34.0 [facility] Comment on above: Performed By: #### C BC #### [facility] [address] [place] [address] Dr. Cyn Hermosillo MCHC (RBC) [Mass/Vol] 32.4 g/dL Normal 29.9-35.2 [facility] Comment on above: Performed By: #### C BC #### [facility] [address] [place] [address] Dr. Cyn Hermosillo MCV (RBC) [Entitic vol] 90.8 fL Normal 81.0-99.0 [facility] Comment on above: Performed By: #### C BC #### [facility] [address] [place] [address] Dr. Cyn Hermosillo MONO # 0.7 103/ul Normal 0.3-0.8 [facility] Comment on above: Performed By: #### C BC #### [facility] [address] [place] [address] Dr. Cyn Hermosillo Monocytes/100 WBC (Bld) 7.2 % Normal 1.7-12.0 [facility] Comment on above: Performed By: #### C BC #### [facility] [address] [place] [address] Dr. Cyn Hermosillo NEUT # 5.7 103/ul Normal 1.4-6.5 [facility] Comment on above: Performed By: #### C BC #### [facility] [address] [place] [address] Dr. Cyn Hermosillo Neutrophils/100 WBC (Bld) 58.4 % Normal 43.0-75.0 [facility] Comment on above: Performed By: #### C BC #### [facility] [address] [place] [address] Dr. Cyn Hermosillo Platelet mean volume (Bld) [Entitic vol] 11.9 fL Normal 9.5-13.5 [facility] Comment on above: Performed By: #### C BC #### [facility] [address] [place] [address] Dr. Cyn Heromsillo PLT 217 103/ul Normal 150-450 [facility] Comment on above: Performed By: #### C BC #### [facility] [address] [address] [address] Cyn Hermosillo RBC 4.01 106/ul Critically low 4.20-5.40 [facility] Comment on above: Performed By: #### C BC #### [facility] [address] [address] [address] Cyn Hermosillo WBC 9.8 103/ul Normal 4.0-11.0 [facility] Comment on above: Performed By: #### C BC #### [facility] [address] [address] [address] Cyn Hermosillo PROF 14(COMP METB)on 022 Albumin [Mass/Vol] 3.6 g/dL Normal 3.4-5.0 [facility] Comment on above: Performed By: #### C MP, TSH #### [facility] [address] [place] [address] Dr. Cyn Hermosillo Albumin/Globulin [Mass ratio] 1.0 {ratio} Normal [facility] Comment on above: Performed By: #### C MP, TSH #### [facility] [address] [place] [address] Dr. Cyn Hermosillo ALP [Catalytic activity/Vol] 59 U/L Normal 46-116 [facility] Comment on above: Performed By: #### C MP, TSH #### [facility] [address] [address] [address] Cyn Hermosillo ALT [Catalytic activity/Vol] 16 U/L Normal 14-59 [facility] Comment on above: Performed By: #### C MP, TSH #### [facility] [address] [place] [address] Dr. Cyn Hermosillo Anion gap [Moles/Vol] 11.0 mmol/L Normal [facility] Comment on above: Performed By: #### C MP, TSH #### [facility] [address] [address] [address] Cyn Hermosillo AST [Catalytic activity/Vol] U/L Critically low 15-37 [facility] Comment on above: Performed By: #### C MP, TSH #### [facility] [address] [address] [address] Cyn Hermosillo Bilirubin [Mass/Vol] 0.2 mg/dL Normal 0.2-1.0 [facility] Comment on above: Performed By: #### C MP, TSH #### [facility] [address] [address] [address] Cyn Hermosillo Calcium [Mass/Vol] 8.5 mg/dL Normal 8.5-10.1 [facility] Comment on above: Performed By: #### C MP, TSH #### [facility] [address] [place] [address] Dr. Cyn Hermosillo Chloride [Moles/Vol] 104 mmol/L Normal 98-107 [facility] Comment on above: Performed By: #### C MP, TSH #### [facility] [address] [address] [address] Cyn Hermosillo CO2 [Moles/Vol] 27.9 mmol/L Normal 21.0-32.0 [facility] Comment on above: Performed By: #### C MP, TSH #### [facility] [address] [place] [address] Dr. Cyn Hermosillo Creatinine [Mass/Vol] 0.49 mg/dL Critically low 0.55-1.02 [facility] Comment on above: Performed By: #### C MP, TSH #### [facility] [address] [place] [address] Dr. Cyn Hermosillo EGFR-AF WALLISIAN >60 Normal >=60 [facility] Comment on above: Performed By: #### C MP, TSH #### [facility] [address] [place] [address] Dr. Cyn Hermosillo EGFR-NON AF WALLISIAN >60 Normal >=60 [facility] Comment on above: Performed By: #### C MP, TSH #### [facility] [address] [place] [address] Dr. Cyn Hermosillo Globulin (S) [Mass/Vol] 3.7 g/dL Normal [facility] Comment on above: Performed By: #### C MP, TSH #### [facility] [address] [address] [address] Cyn Hermosillo Glucose [Mass/Vol] 109 mg/dL Critically high 74-106 [facility] Comment on above: Performed By: #### C MP, TSH #### [facility] [address] [address] [address] Cyn Hermosillo Potassium [Moles/Vol] 3.9 mmol/L Normal 3.5-5.1 [facility] Comment on above: Performed By: #### C MP, TSH #### [facility] [address] [address] [address] Cyn Hermosillo Protein [Mass/Vol] 7.3 g/dL Normal 6.4-8.2 [facility] Comment on above: Performed By: #### C MP, TSH #### [facility] [address] [address] [address] Cyn Hermosillo Sodium [Moles/Vol] 139 mmol/L Normal 136-145 [facility] Comment on above: Performed By: #### C MP, TSH #### [facility] [address] [address] [address] Cyn Hermosillo Urea nitrogen [Mass/Vol] 15.0 mg/dL Normal 7.0-18.0 [facility] Comment on above: Performed By: #### C MP, TSH #### [facility] [address] [address] [address] Cyn Hermosillo Urea nitrogen/Creatinine [Mass ratio] 30.6 mg/mg Normal [facility] Comment on above: Performed By: #### C MP, TSH #### [facility] [address] [address] [address] Cyn Hermosillo TSHon 02-28-2022 TSH 0.399 uIU/mL Normal 0.358-3.740 [facility] Comment on above: Performed By: #### C MP, TSH #### [facility] [address] [place] [address] Dr. Cyn Hermosillo TSH RANGE SEE BELOW Normal [facility] Comment on above: Result Comment: <0.3 4 UIU/ml HYPERTHYROID 0.34-5.60 UIU/ml EUTHYROID >5.60 UIU/ml HYPOTHYROID Performed By: #### C MP, TSH #### [facility] [address] [address] [address] Cyn Hermosillo Vital Signs Date Time Vital Sign Value Performing Clinician Faci lity 11-19-2024 09:23-0500 Body height 165.1 cm Richelle Pardo MD Work Phone: [facility] 11-19-2024 09:23-0500 Body mass index (BMI) [Ratio] 26.96 kg/m2 Richelle Pardo MD Work Phone: [facility] 11-19-2024 09:23-0500 Body weight 73.48 kg Richelle Pardo MD Work Phone: [facility] 11-19-2024 09:23-0500 Heart rate 94 /min Richelle Pardo MD Work Phone: [facility] 11-19-2024 09:23-0500 SaO2% (BldA) [Mass fraction] 91 % Richelle Pardo MD Work Phone: [facility] Healthcare Encounters Encounter Date Encounter Type Care Provider Facility Start: 11-19-2024 End: 11-19-2024 [employer] Richelle Pardo MD Work Phone: [facility] Start: 11-19-2024 End: 11-19-2024 [employer] Richelle Pardo MD Work Phone: [facility] Start: 11-19-2024 End: 11-19-2024 Office outpatient visit 25 minutes Richelle Prado MD Work Phone: [facility] Comment on above: Marina's disease (CMS/HCC) (Primary Dx); Encounter for dietary consultation; Vitamin D deficiency; Autoimmune thyroiditis (CMS/HCC) Start: 11-19-2024 End: 11-19-2024 ambulatory RICHELLE PARDO Not Available Start: 11-13-2024 End: 11-14-2024 Orders Only Richelle Pardo MD Work Phone: [facility] External Department Unsolicited Start: 08-03-2024 End: 08-03-2024 ambulatory DO SAUL P HOUSE Facility: [facility] Start: 07-21-2024 End: 07-21-2024 ambulatory DO SAUL P HOUSE Facility: [facility] Start: 02-25-2024 End: 02-25-2024 ambulatory DO SAUL P HOUSE Facility: [facility] Start: 02-05-2024 End: 02-05-2024 ambulatory NON STAFF Facility:[facility] Start: 12-09-2023 End: 12-09-2023 ambulatory DO SALU P HOUSE Facility: [facility] Start: 10-24-2023 End: 10-24-2023 ambulatory Evans Catherine MD [facility] Start: 10-01-2023 End: 10-01-2023 ambulatory SAUL P HOUSE Facility: [facility] Start: 09-24-2023 End: 09-24-2023 ambulatory SAUL P HOUSE Facility: [facility] Start: 08-24-2022 Encounter for preprocedural laboratory examination DR MARY LOU COHEN . [facility] Start: 08-24-2022 End: 08-25-[address] MARY LOU COHEN . Facility:[facility] Start: 08-21-2022 End: 08-22-[address] MARY LOU COHEN . Facility:[facility] Start: 08-21-2022 End: 08-22-2022 Encounter for preprocedural laboratory examination DR MARY LOU COHEN . Facility:[facility] Start: 08-20-2022 Encounter for other preprocedural examination DR MARY LOU COHEN . [facility] Start: 08-16-2022 End: 08-17-[address] SAUL LIZ Facility:[facility] Start: 08-16-2022 End: 08-17-2022 Encounter for other preprocedural examination DR SAUL LIZ Facility:[facility] Start: 07-06-2022 End: 07-06-[address] MARY LOU COHEN . Facility:[facility] Start: 07-05-2022 End: 07-06-[address] MARY LOU COHEN . Facility:[facility] Start: 06-26-2022 End: 06-27-[address] MARY LOU COHEN . Facility:[facility] Start: 06-19-2022 End: 06-20-2022 ambulatory CYRUS HOLLAND Facility:[facility] Start: 05-29-2022 End: 05-29-[address] MARY LOU COHEN . Facility:[facility] Start: 02-28-2022 End: 03-01-[address] SAUL LIZ Facility:[facility] Procedures Date Procedure Procedure Detail Performing Clinician Start: 11-13-2024 Assay of free thyroxine Richelle Pardo MD Work Phone: Start: 07-16-2023 Mammography Richelle lerma MD Work Phone: Start: 05-29-2022 Microscopic observat ion [Identifier] in Cervix by Cyto stain Richelle Pardo MD Work Phone: Plan of Treatment Date Care Activity Detail Author Start: 11-18-2025 End: 11-18-2025 Patient encounter procedure 11/18/2025 10:00 AM EST Office Visit [facility] [address] [place] [id number] Richelle Pardo MD [address] [place] [address] [facility] Start: 05-29-2025 Screening for malignant neoplasm of cervix [facility] Start: 12-24-2024 End: 12-24-2024 Patient encounter procedure 12/24/2024 11:00 AM EDT Office Visit [facility] [address] [place] [address] Mary Lou Cohen, DO [address] [place] [address] [facility] Start: 11-19-2024 End: 11-19-2025 Thyrotropin [Units/volume] in Serum or Plasma TSH Lab Routine Marina's disease (CMS/HCC) Expected: 11/19/2024 (Approximate), Expires: 11/19/2025 [facility] Comment on above: Expected: 11/19/2024 (Approximate), Expi res: 11/19/2025 Start: 11-19-2024 End: 11-19-2025 Thyroxine (T4) free [Mass/volume] in Serum or Plasma T4, free Lab Routine Marina's disease (CMS/HCC) Expected: 11/19/2024 (Approximate), Expires: 11/19/2025 [facility] Comment on above: Expected: 11/19/2024 (Approximate), Expi res: 11/19/2025 Start: 11-19-2024 End: 11-19-2025 Triiodothyronine (T3) Free [Mass/volume] in Serum or Plasma T3, free Lab Routine Marina's disease (CMS/HCC) Expected: 11/19/2024 (Approximate), Expires: 11/19/2025 [facility] Work Phone: Comment on above: Expected: 11/19/2024 (Approximate), Expi res: 11/19/2025 Start: 11-19-2024 End: 11-19-[address] [facility] Comment on above: Arrived Start: 07-16-2024 Screening for malignant neoplasm of breast Mammogram [facility] Start: 06-07-2024 Influenza vaccination Influenza Vaccine (#1) [facility] Start: 2007 Screening for malignant neoplasm of cervix HPV/Cotest [facility] Start: 1975 Screening for malignant neoplasm of colon [facility] Immunizations Immunization Date Immunization Notes Care Provider Fa cili 07-30-2023 influenza, injectabl e, quadrivalent, preservative free Richelle Pardo MD Work Phone: [facility] 07-30-2023 influenza virus vacc ine, unspecified formulation Richelle Pardo MD Work Phone: [facility] 08-21-2022 Influenza, injectabl e, Madin [place] Canine Kidney, preservative free, quadrivalent Richelle Pardo MD Work Phone: [facility] 08-25-2021 Influenza, injectabl e, Madin Kristina Canine Kidney, preservative free, quadrivalent Richelle Pardo MD Work Phone: [facility] 08-10-2020 influenza, injectabl e, quadrivalent, preservative free Richelle Pardo MD Work Phone: [facility] 10-16-2019 Influenza, injectabl e, Madin Kristina Canine Kidney, preservative free, quadrivalent Richelle Pardo MD Work Phone: [facility] 07-19-2017 influenza, injectabl e, quadrivalent, preservative free Richelle Pardo MD Work Phone: [facility] 07-20-2015 influenza, seasonal, injectable Richelle Pardo MD Work Phone: [facility] 06-14-2015 tetanus toxoid, redu vince diphtheria toxoid, and acellular pertussis vaccine, adsorbed Richelle Pardo MD Work Phone: [facility] 07-05-2014 influenza, seasonal, injectable, preservative free Richelle Pardo MD Work Phone: [facility] 02-18-2012 tetanus toxoid, redu vince diphtheria toxoid, and acellular pertussis vaccine, adsorbed Richelle Pardo MD Work Phone: [facility] Payers Date Payer Category Payer Self-pay 2018 Private Health Insurance [id number] 1975 Unknown [id number] 2.16.84 [id number] 1975 Unknown [id number] 2.16.84 0.1.129114.3.579.2.593 1975 Unknown [id number] 2.16.84 0.1.854883.3.579.2.593 1975 Unknown [id number] 2.16.84 0.1.743526.3.579.2.593 1975 Unknown [id number] 2.16.84 0.1.651744.3.579.2.593 1977 Unknown [id number] 2.16.84 0.1.525598.3.579.2.593 1977 Unknown [id number] 2.16.84 0.1.306277.3.579.2.593 1977 Unknown [id number] 2.16.84 0.1.387368.3.579.2.593 1977 Unknown [id number] 2.16.84 0.1.288251.3.579.2.593 1977 Unknown [id number] 2.16.8 40.1.146745.3.579.2.718 1977 Unknown [id number] 2.16.8 40.1.462753.3.579.2.8 1977 Unknown [id number] 2.16.8 40.1.505128.3.579.2.718 1977 Unknown [id number] 2.16.8 40.1.057548.3.579.2.8 1977 Unknown [id number] 2.16.8 40.1.354093.3.579.2.8 1977 Unknown [id number] 2.16.8 40.1.697472.3.579.2.8 1977 Unknown [id number] 2.16.8 40.1.453585.3.579.2.8 1977 Unknown [id number] 2.16.84 0.1.858906.3.579.2.1259 1959 Unknown [id number] Unknown [id number] 2.16.8 40.1.051119.3.579.2.531 Social History Date Type Detail Facility Start: 06-05-2023 Tobacco smoking stat [facility] Never smoked tobacco [facility] Start: 09-21-2024 End: 11-19-2024 Alcoholic beverage intake Lifetime non-drinker (finding) [facility] Start: 09-21-2024 End: 11-19-2024 History of Social function [facility] Start: 09-21-2024 End: 11-19-2024 Tobacco use panel [facility] Start: 1975 [place] assigned at [place] [facility] Start: 06-11-2023 Sexual orientation Heterosexual (fin ding) [facility] History of Present illness Narrative 11-19-2024 Richelle Pardo MD - 11/19/2024 9:40 AM EST Note Date & Type Note Facility 11-19-2024 History of Presen t illness Narrative Manjinder Bob is a 49 y.o. female No ref. provider found presents with chief complaint of Thyroid Problem HPI: Interim History: 11/2024 Follow-up visit of 11/19/2024 for hypothyroidism. TSH 0.556, free T4 1.34(0.82-1.77), and free T3 at 3.4 ( 2-4.4), She is on levothyroxine 75 six days a week. Interim History: 11/2023 Follow-up visit of 11/13/2023 for hypothyroidism. TSH 0.495, free T4 0.82(0.76-1.46), and free T3 at 2.93 ( 2.18-3.98), vit d 16 off once every other weekly , She is on levothyroxine 75 six days a week. Interim History: 11/2022 Follow-up visit of 11/14/2022 for hypothyroidism. TSH 0.58, free T4 at 1.1(0.61-1.6), and free T3 at 3.85 ( 2.5-3.8), vit d 36 on once weekly , She is on levothyroxine 75 six days a week. Interim History: 11/2021 Follow-up visit of 11/15/2021 for hypothyroidism. TSH 0.37, free T4 at 1.10(0.78-21.9), and free T3 at 2.66 ( 2.77-5.27). She is on levothyroxine 75 six days a week. vit d 8.6 off supplement. US wnl no nodules Interim History: 11/2019. Follow-up visit of 11/09/2020 for hypothyroidism. TSH 0.84, free T4 at 0.85(0.61-1.6), and free T3 at 3.4 ( 2.5-3.9). She is on levothyroxine 75 six days a week. vit d 8 Interim History: 10/2019. Follow-up visit of 10/15/2019 for hypothyroidism. TSH 0.4, free T4 at 0.94, and free T3 at 3.4. She is on levothyroxine 75 six days a week. Ultrasound done, right lobe 4.9 x 1.6 x 1.6; left lobe 4.5 x 1.5 x 1m, hypervascular, and no nodules, used to be 4 mm in the right lobe before. Interim History: 06/2019. Followup visit on 06/25/2019 for hypothyroidism. Primary doctor in 03/2019 found her TSH 0.99, T4 5.4 (5.5-12), so he started her on levothyroxine 75 mcg and then in 04/2019, TSH 0.37, T4 7.6, no new symptoms and she is feeling okay. Interim history: 01/2019 Follow-up visit 02/02/19. She is 7 months post-. Labs within normal limits. TSH 1.19, free T4 0.69, free T3 mildly high 3.92 (2.5-3.9). She has a 4 mm tiny nodule in the right lobe. She is feeling okay. No new medications. Interim History 08/24: Followup visit on 08/12/2018, status post 7 weeks delivery. She is barely taking levothyroxine 25 mcg once or twice weekly, and thyroid function tests within normal limits. TSH 0.73, free T4 0.7 (0.61-1.6). Free T3 3.25 (2.5-3.9). She was able to maintain her . INTERIM HISOTRY 04/23 Follow-up is in 04/29/18 for lab she is 31 weeks TSH 1.04, free T4 0.71 [0.61-1.6], free T3 3.89 [2.5-3.9) she's on levothyroxine 50 mcg daily Interim History: 03/24 Followup visit on 03/18/18 for hypothyroidism during her . Last visit we start her on 50 mcg daily. Now she is 25 weeks. Free T4 0.8 (0.6-1.6), TSH 0.6, free T3 3.46 (2.5-3.9), and feel much better. HPI: 02/21 Interim History: 02/21 Followup visit on 02/18/18 for thyroid problem. She has lab during . Now she is 21 weeks, and TSH showing normal limits, free T4 0.57 (0.61-1.6). Last delivery in , we used up to levothyroxine 75 mcg during her . She is off since her delivery that time. I starting her in when she came to me with subclinical hyperthyroidism, with suppressed TSH and normal free T4. I checked her antibodies, TSI came back 58, thyroglobulin antibody negative. We did ultrasound, showed right lobe 4.3 x 1.3 x 1.9, with 4 mm tiny nodules; left lobe 4.2 x 0.9 x 0.1. Currently she is not on any thyroid medication and she is 21 weeks . SUBJECTIVE: MEDICATIONS: Current Outpatient Medications Medication Instructions ARIPiprazole (Abilify) 5 MG tablet TAKE 1 AND 1/2 TABLETS ORALLY ONCE A DAY 90 DAYS atomoxetine (STRATTERA) 80 mg, Daily levothyroxine (SYNTHROID, LEVOXYL) 75 mcg, Oral, Daily before breakfast pantoprazole (PROTONIX) 40 mg, Every 24 hours ALLERGIES: No Known Allergies Past Medical History: Diagnosis Date Abnormal uterine bleeding (AUB) Acid reflux Anxiety Hiatal hernia Hypothyroidism (CMS/HCC) Menorrhagia Mittelschmerz Ovarian mass, left Right shoulder pain Vaginal delivery 08/2015 Past Surgical History: Procedure Laterality Date CHOLECYSTECTOMY 2007 CYST REMOVAL DILATION AND CURETTAGE ENDOMETRIAL ABLATION GALLBLADDER HYSTEROSCOPY LISA FUNDOPLICATION OTHER SURGICAL HISTORY Repair of esophagul reflux SALPINGECTOMY Bilateral 08/24/2022 w/ cystoscopy TOTAL VAGINAL HYSTERECTOMY 08/24/2022 Da Vinici TUBAL LIGATION REVIEW OF SYMPTOMS: 14 POINT OF SYSTEM REVIEWED AND NEGATIVE OBJECTIVE: Lab Results Component Value Date TSH 0.556 11/13/2024 No results found for: T4FREE Lab Results Component Value Date FREET3 3.4 11/13/2024 Visit Vitals Pulse 94 Ht 5' 5 Wt 162 lb SpO2 91% BMI 26.96 kg/m Smoking Status Never BSA 1.84 m Physical Exam Constitutional: Appearance: Normal appearance. She is normal weight. HENT: Head: Normocephalic and atraumatic. Right Ear: External ear normal. Nose: Nose normal. Mouth/Throat: Pharynx: Oropharynx is clear. Eyes: Extraocular Movements: Extraocular movements intact. Pupils: Pupils are equal, round, and reactive to light. Cardiovascular: Rate and Rhythm: Normal rate and regular rhythm. Pulmonary: Effort: Pulmonary effort is normal. Abdominal: General: Abdomen is flat. Palpations: Abdomen is soft. Musculoskeletal: General: Normal range of motion. Skin: General: Skin is warm. Neurological: General: No focal deficit present. Mental Status: She is alert. Psychiatric: Mood and Affect: Mood normal. Behavior: Behavior normal. ASSESSMENT AND PLAN: Assessment/Plan Diagnoses and all orders for this visit: Marina's disease (CMS/HCC) - T3, free; Future - T4, free; Future - TSH; Future We will continue with levothyroxine 75 mcg daily 6 days a week. Encounter for dietary consultation Diet and exercise reviewed with the patient Vitamin D deficiency Autoimmune thyroiditis (CMS/HCC) - levothyroxine (Synthroid, Levoxyl) 75 MCG tablet; Take 1 tablet (75 mcg) by mouth in the morning. Take before meals. Follow up in about 1 year (around 11/19/2025). documented in this encounter [facility] Medication management note 12-19-2023 Note Date & Type Note Facility 12-19-2023 Note Entered by JACOBY LIZ DO on December 19, 2023 07:49:35 EDT From: SAUL LIZ DO To: [facility]/pharmacy #[id number] Sent: 12/19/2023 07:49:35 EDT Subject: Medication Management Approved Order:atomoxetine (Strattera 100 mg oral capsule) TAKE 1 CAPSULE BY MOUTH EVERY DAY IN THE MORNING Qty: 90 cap(s) Days Supply: 90 Refills: 1 Substitutions Allowed Route To Pharmacy - [id number] Note from Pharmacy: REQUEST FOR 90 DAYS PRESCRIPTION. DX Code Needed Signed by SAUL LIZ DO Cancelled: Discontinue:atomoxetine (atomoxetine 100 mg oral capsule) Signed by SAUL LIZ DO From: [id number] To: SAUL LIZ DO Sent: December 19, 2023 1:06:59 AM CDT Subject: Medication Management Due: December 20, 2023 1:06:59 AM CDT Originally Prescribed Drug: Drug: atomoxetine (Strattera 100 mg oral capsule), TAKE 1 CAPSULE BY MOUTH EVERY DAY IN THE MORNING Quantity: 30 cap(s) Days Supply: 30 Refills: 2 Substitutions Allowed Notes from Pharmacy: REQUEST FOR 90 DAYS PRESCRIPTION. DX Code Needed On Hold Pending Signature Preferred Alternative Drug: atomoxetine (Strattera 100 mg oral capsule), TAKE 1 CAPSULE BY MOUTH EVERY DAY IN THE MORNING Quantity: 90 cap(s) Days Supply: 90 Refills: 1 Substitutions Allowed Notes from Pharmacy: REQUEST FOR 90 DAYS PRESCRIPTION. DX Code Needed [facility] Clinical Note 08-24-2022 Note Date & Type Note Facility 08-24-2022 Note OPERATIVE NOTE OPERATION DATE: 09/20/2022 PROCEDURE: Da Flako assisted laparoscopic hysterectomy, bilateral salpingectomy with cystoscopy. PREOPERATIVE DIAGNOSIS: Abnormal uterine bleeding, dysmenorrhea, pelvic pain, Mittelschmerz thickened endometrium. POSTOPERATIVE DIAGNOSIS: Abnormal uterine bleeding, dysmenorrhea, pelvic pain, Mittelschmerz thickened endometrium. ANESTHESIA: General. SURGEON: Mary Lou Cohen D.O. COMPLIANCE SPECIALIST: ESTEFANY Navarro URINE OUTPUT: Yellow and clear. [...] Anesthesia first. Patient tolerated procedure well. [facility] Clinical Note 07-06-2022 Note Date & Type Note Facility 07-06-2022 Note OPERATIVE NOTE OPERATION DATE: 07/06/2022 PROCEDURE: D AND C hysteroscopy. PREOPERATIVE DIAGNOSIS: Menorrhagia, thickened endometrial lining. POSTOPERATIVE DIAGNOSIS: Menorrhagia, thickened endometrial lining. ANESTHESIA: General. SURGEON: Mary Lou Cohen D.O. COMPLIANCE SPECIALIST: None. BLOOD LOSS: 5 mL. FINDINGS: Normal [...] the Recovery Room in stable condition. [facility] Evaluation note Note Date & Type Note Facility Evaluation note Diagnosis Marina's disease (CMS/HCC)- Primary Chronic lymphocytic thyroiditis Encounter for dietary consultation Vitamin D deficiency Autoimmune thyroiditis ([facility]/HCC) documented in this encounter [facility] Summary Purpose Family History No Family History Records FoundNo Family History Records FoundNo Family History Records FoundNo Family History Records Found Advance Directives No Advanced Directives Records FoundNo Advanced Directives Records FoundNo Advanced Directives Records FoundNo Advanced Directives Records Found Additional Source Comments INFORMATION SOURCE (unrecogn ized section and content) DATE CREATED AUTHOR 02/19/2023 [facility] DATE CREATED AUTHOR AUTHOR'S ORGANIZ ATION 03/18/2024 [facility] DATE CREATED AUTHOR AUTHOR'S ORGANIZ ATION 08/29/2024 [facility] DATE CREATED AUTHOR AUTHOR'S ORGANIZ ATION 11/21/2024 [facility] EPIC Reason for Visit (unrecogniz ed section and content) Reason Comments Thyroid Problem FOR RECORDS PERTAINING TO PATIENTS WHO ARE [...] BE BASED ON THE PRIMARY CLINICAL RECORDS. [employer] [facility]. provides no warranty or guarantee of the accuracy or completeness of information in this document.
[2024-12-29 00:07] LABS: Age Gdln ACOG Testing Note (.); HPV Aptima Positive (Negative); HPV Genotype 16 Negative (Negative); HPV Genotype 18,45 Negative (Negative); IGP, Aptima HPV, rfx 16/18,45 Note (.)
== END 2024-12-24 12:19 | disposition home or self-care (01) ==
LOC: LAB 12:18
PROVIDERS: Visit Provider Obstetrics & Gynecology
DX: Z01.419 Encounter for gynecological examination (general) (routine) without abnormal findings (principal)
CPT/HCPCS: 87624; 88175

== ENCOUNTER 2024-12-31 10:53 | Outpatient (OUT) | payer OTHER, SELFPAY ==
--- NOTE | 2024-12-31 10:55 | MM_ITS ---
Patient Name: MANJINDER BOB MR#: [id number] : 1975 Exam Date: 12/31/2024 Ordering Doctor: DR Parminder Cohen . RADIOLOGY REPORT PROCEDURE: MM TOMOSYNTHESIS SCREENING BI COMPARISON: MM TOMOSYNTHESIS SCREENING BI, 06/25/2023. MG MAMM SCREEN 3D MYKE CAD, 06/19/2022. MG MAMM SCREEN MYKE W CAD, 03/31/2021. INDICATIONS: Screening Calculator Name NCI Breast Cancer Risk Assessment Tool 5 Year Breast Cancer Risk 0.90% Lifetime Breast Cancer Risk 9.00% Personal Breast Cancer No Personal Ovarian Cancer No Treatments None Family Cancers Aunt-maternal with breast cancer at age 43. LOCATION: [facility] [place] BREAST COMPOSITION: The breasts are heterogeneously dense,which may obscure small masses. FINDINGS: RIGHT BREAST: No significant suspicious finding. LEFT BREAST: No significant suspicious finding. DIAGNOSTIC CATEGORY 1--NEGATIVE. RECOMMENDATIONS: ROUTINE MAMMOGRAM AND CLINICAL EVALUATION IN 12 MONTHS. PLEASE NOTE: A NORMAL MAMMOGRAM DOES NOT EXCLUDE THE POSSIBILITY OF BREAST CANCER. A CLINICALLY SUSPICIOUS PALPABLE LUMP SHOULD BE BIOPSIED. Dictated by: Og Esparza DO on 12/31/2024 at 14:50 Approved by: Og Esparza DO on 12/31/2024 at 14:59
--- OUTSIDE RECORDS SUMMARY | 2024-12-31 11:02 | XMS_ITS | CCD ---
Author Organization [facility] Care Team Providers Care Site Auditor Name Role Phone VICKI ., DR BRARETO Consulting Unavailable HOUSE, DR HUGHES Primary Care Unavailable VICKI ., DR BARRETO Attending Unavailable VICKI ., DR BARRETO Admitting Unavailable AMALIA, CYRUS Consulting Unavailable HOUSE, DR HUGHES Primary Care Unavailable VICKI ., DR BARRETO Attending Unavailable VICKI ., DR BARRETO Admitting Unavailable VICKI ., DR BARRETO Consulting Unavailable Ziebdevyn, Jw Consulting Unavailable VICKI ., DR BARRETO Consulting Unavailable HOUSE, DR HUGHES Primary Care Unavailable VICKI ., DR BARRETO Attending Unavailable VICKI ., DR BARRETO Admitting Unavailable ZiebJw shepard Consulting Unavailable VICKI ., DR BARRETO Consulting Unavailable HOUSE, DR HUGHES Primary Care Unavailable VICKI ., DR BARRETO Attending Unavailable VICKI ., DR BARRETO Admitting Unavailable SHARP, HARSH Consulting Unavailable KUCHIPUDI, SUMIT Consulting Unavailable HOUSE, DR HUGHES Primary Care Unavailable VICKI ., DR BARRETO Attending Unavailable VICKI ., DR BARRETO Admitting Unavailable VICKI ., DR BARRETO Consulting Unavailable HOUSE, DR HUGHES Primary Care Unavailable VICKI ., DR BARRETO Attending Unavailable VICKI ., DR BARRETO Admitting Unavailable VICKI ., DR BARRETO Consulting Unavailable HOUSE, DR HUGHES Primary Care Unavailable VICKI ., DR BARRETO Attending Unavailable VICKI ., DR BARRETO Admitting Unavailable VICKI ., DR BARRETO Consulting Unavailable HOUSE, DR HUGHES Primary Care Unavailable VICKI ., DR BARRETO Attending Unavailable VICKI ., DR BARRETO Admitting Unavailable DONNA, HARSH Consulting Unavailable GEMBUS, EVANS Consulting Unavailable GILL, DR HUGHES Consulting Unavailable GILL, DR HUGHES Primary Care Unavailable HOUSE, DR [...] Primary Care Provider UnavailRICHELLE Sr Attending Unavailable MARY LOU COHEN Attending Unavailable Medications Current Medications Medication Drug Class(es) Dates Sig (Normalized) Sig (Original) ARIPiprazole 5 mg oral tablet (4 sources) Atypical Antipsychotic take 1 tablet by mouth once daily ARIPiprazole (Abilify) 5 MG tablet TAKE 1 AND 1/2 TABLETS ORALLY ONCE A DAY 90 DAYS Active atomoxetine 80 mg oral capsule (6 sources) Norepinephrine Reuptake Inhibitor Start: 12-15-2022 take 1 capsule by mouth in the morning atomoxetine (Strattera) 80 MG capsule Take 80 mg by mouth in the morning. 12/15/2022 Active levothyroxine sodium 0.075 mg oral tablet (8 sources) l-Thyroxine Start: 11-16-2024 End: 11-14-2025 take [...] pantoprazole 40 mg delayed release oral tablet (6 sources) Proton Pump Inhibitor take 1 tablet [...] 05-31-2022 Episodic Other aftercare (1 source) Other manager intermediate (current) drug therapy; Translations: [OTH USP CURRENT DRUG THERAPY] Onset: 09-27-2022 Episodic Other [...] Test Name Value Interpretation Reference Range Facility IGP,APTIMA HPV,AGE GDLNon AGE GDLN ACOG TESTING Note . [facility] Comment on above: TESTS RESULT FLAG UN ITS REF RANGE LAB Clinician Provided Cytology Information Source.............Vagina No. of containers..01 ThinPrep Vial Age Abdullahi ELIAS Génesis... FLAG LEGEND: L-Low Normal,H-High Normal,LL-Alert Low,HH-Alert High <-Panic Low,>-Panic High,A-Abnormal,AA-Critical Abnormal Performed at: 01 =G [address] [id number] Pari Head MD, HPV APTIMA Positive Abnormal Negative [facility] Comment on above: This nucleic acid am plification test detects fourteen high- risk HPV types (16,18,31,33,35,39,45,51,52,56,58,59,66,68) without differentiation. HPV GENOTYPE 16 Negative Negative [facility] HPV GENOTYPE 18,45 Negative Negative [facility] Comment on above: Performed at: =G - L [facility] [address] [id number] [place]: Pari Head MD, Phone: [phone] Performed at: - [facility] [id number] [place]: Pari Head MD, Phone: [phone] IGP, APTIMA HPV, RFX 16/18,45 Note . [facility] Comment on above: TESTS RESULT FLAG UN ITS REF RANGE LAB DIAGNOSIS: 02 NEGATIVE FOR INTRAEPITHELIAL LESION OR MALIGNANCY. Specimen adequacy: 02 Satisfactory for evaluation. Performed by: 02 Juve Atkins Nurse'S Companion ([facility]) . 02 Note: Note 02 The Pap smear is a screening test designed to aid in the detection of premalignant and malignant conditions of the uterine cervix. It is not a diagnostic procedure and should not be used as the sole means of detecting cervical cancer. Both false-positive and false-negative reports do occur. Test Methodology: Note 02 This liquid based ThinPrep(R) pap test was screened with the use of an image guided system. HPV Genotype Reflex Note 02 Criteria met, see HPV Genotype results. FLAG LEGEND: L-Low Normal,H-High Normal,LL-Alert Low,HH-Alert High <-Panic Low,>-Panic High,A-Abnormal,AA-Critical Abnormal Performed at: [facility] [id number] Pari Head MD, Interpretation and review of laboratory results Abnormal [facility] No Panel Informationon 11-14 Performed at: - [facility] [id number] [place]: Tacho Ba PhD, Phone: [phone] [facility] T3, freeon 11-14-2024 Free T3 [Mass/Vol] 3.4 pg/mL 2.0 - 4.4 pg/mL [facility] T4, freeon 11-14-2024 Free T4 [Mass/Vol] 1.39 ng/dL 0.82 - 1. 77 ng/dL [facility] TSHon 11-14-2024 TSH Qn 0.556 m[IU]/L [facility] Health care XR foot RT min 3V*on 024 XR foot RT min 3V* [facility] [address] [place] [address] XRay Report Signed Patient: Manjinder Bob MR#: [id number] 68 : 1975 Acct:[id number] Age/Sex: 48 / F ADM Date: 02/05/24 Loc: XDUCLY Room: Type: [facility] Attending Dr: Tory Rodriguez APRN Copies to: [...] Og Esparza M.D.02/05/2024 9:59 AM Dictation Location: [place] [address] Transcribed By: [facility] 02/05/2459 Dictated By: Og Esparza DO 02/05/24958 Signed By: 02/05/2459 Normal [facility] BUNon 08-25-2022 Urea nitrogen [Mass/Vol] 6.0 mg/dL Critically low 7.0-18.0 [facility] Comment on above: Performed By: #### B UN, CREA #### [facility] [address] [address] [address] Cyn Hermosillo CBC AUTO DIFFon 08-25-2022 BASO # 0.1 103/ul Normal 0.0-0.1 [facility] Comment on above: Performed By: #### C BC #### [facility] [address] [place] [address] Dr. Cyn Hermosillo Basophils/100 WBC (Bld) 0.4 % Normal 0.2-2.0 [facility] Comment on above: Performed By: #### C BC #### [facility] [address] [place] [address] Dr. Cyn Hermosillo EO # 0.1 103/ul Normal 0.0-0.7 [facility] Comment on above: Performed By: #### C BC #### [facility] [address] [place] [address] Dr. Cyn Hermosillo Eosinophils/100 WBC (Bld) 0.4 % Critically low 0.9-7.0 [facility] Comment on above: Performed By: #### C BC #### [facility] [address] [place] [address] Dr. Cyn Hermosillo Erythrocyte distribution width (RBC) [Ratio] 13.2 % Normal 11.0-15.0 [facility] Comment on above: Performed By: #### C BC #### [facility] [address] [place] [address] Dr. Cyn Hermosillo Hematocrit (Bld) [Volume fraction] 27.4 % Critically low 36.0-48.0 [facility] Comment on above: Performed By: #### C BC #### [facility] [address] [place] [address] Dr. Cyn Hermosillo Hemoglobin (Bld) [Mass/Vol] 9.2 g/dL Critically low 12.0-16.0 [facility] Comment on above: Performed By: #### C BC #### [facility] [address] [place] [address] Dr. Cyn Hermosillo IG # 0.06 10e3/ul Critically high 0.00-0.03 [facility] Comment on above: Performed By: #### C BC #### [facility] [address] [place] [address] Dr. Cyn Hermosillo IG % 0.4 % Normal 0.0-0.5 [facility] Comment on above: Performed By: #### C BC #### [facility] [address] [place] [address] Dr. Cyn Hermosillo LYMPH # 2.6 103/ul Normal 1.2-3.8 [facility] Comment on above: Performed By: #### C BC #### [facility] [address] [place] [address] Dr. Cyn Hermosillo Lymphocytes/100 WBC (Bld) 17.8 % Critically low 20.5-60.0 [facility] Comment on above: Performed By: #### C BC #### [facility] [address] [place] [address] Dr. Cyn Hermosillo MANUAL DIFF REQ NO Normal [facility] Comment on above: Performed By: #### C BC #### [facility] [address] [place] [address] Dr. Cyn Hermosillo MCH (RBC) [Entitic mass] 30.0 pg Normal 26.7-34.0 [facility] Comment on above: Performed By: #### C BC #### [facility] [address] [place] [address] Dr. Cyn Hermosillo MCHC (RBC) [Mass/Vol] 33.6 g/dL Normal 29.9-35.2 [facility] Comment on above: Performed By: #### C BC #### [facility] [address] [place] [address] Dr. Cyn Hermosillo MCV (RBC) [Entitic vol] 89.3 fL Normal 81.0-99.0 [facility] Comment on above: Performed By: #### C BC #### [facility] [address] [place] [address] Dr. Cyn Hermosillo MONO # 0.9 103/ul Critically high 0.3-0.8 [facility] Comment on above: Performed By: #### C BC #### [facility] [address] [place] [address] Dr. Cyn Hermosillo Monocytes/100 WBC (Bld) 6.2 % Normal 1.7-12.0 [facility] Comment on above: Performed By: #### C BC #### [facility] [address] [place] [address] Dr. Cyn Hermosillo NEUT # 10.8 103/ul Critically high 1.4-6.5 [facility] Comment on above: Performed By: #### C BC #### [facility] [address] [place] [address] Dr. Cyn Hermosillo Neutrophils/100 WBC (Bld) 74.8 % Normal 43.0-75.0 [facility] Comment on above: Performed By: #### C BC #### [facility] [address] [place] [address] Dr. Cyn Hermosillo Platelet mean volume (Bld) [Entitic vol] 12.4 fL Normal 9.5-13.5 [facility] Comment on above: Performed By: #### C BC #### [facility] [address] [place] [address] Dr. Cyn Hermosillo PLT 174 103/ul Normal 150-450 [facility] Comment on above: Performed By: #### C BC #### [facility] [address] [place] [address] Dr. Cyn Hermosillo RBC 3.07 106/ul Critically low 4.20-5.40 [facility] Comment on above: Performed By: #### C BC #### [facility] [address] [place] [address] Dr. Cyn Hermosillo WBC 14.5 103/ul Critically high 4.0-11.0 [facility] Comment on above: Performed By: #### C BC #### [facility] [address] [place] [address] Dr. Cyn Hermosillo CREATININEon 08-25-2022 Creatinine [Mass/Vol] 0.49 mg/dL Critically low 0.55-1.02 [facility] Comment on above: Performed By: #### B UN, CREA #### [facility] [address] [place] [address] Dr. Cyn Hermosillo EGFR-AF AUSTRALIAN >60 Normal >=60 [facility] Comment on above: Performed By: #### B UN, CREA #### [facility] [address] [place] [address] Dr. Cyn Hermosillo EGFR-NON AF AUSTRALIAN >60 Normal >=60 [facility] Comment on above: Performed By: #### B UN, CREA #### [facility] [address] [place] [address] Dr. Cyn Hermosillo PREG HCG QUALon 08-24-2022 , QUAL Negative Normal NEGATIVE [facility] Comment on above: Performed By: #### C MP, TSH #### [facility] [address] [place] [address] Dr. Cyn Hermosillo CBC AUTO DIFFon 08-21-2022 BASO # 0.1 103/ul Normal 0.0-0.1 [facility] Comment on above: Performed By: #### C MP, TSH #### [facility] [address] [place] [address] Dr. Cyn Hermosillo Basophils/100 WBC (Bld) 1.0 % Normal 0.2-2.0 [facility] Comment on above: Performed By: #### C MP, TSH #### [facility] [address] [place] [address] Dr. Cyn Hermosillo EO # 0.1 103/ul Normal 0.0-0.7 [facility] Comment on above: Performed By: #### C MP, TSH #### [facility] [address] [place] [address] Dr. Cyn Hermosillo Eosinophils/100 WBC (Bld) 0.7 % Critically low 0.9-7.0 [facility] Comment on above: Performed By: #### C MP, TSH #### [facility] [address] [place] [address] Dr. Cyn Hermosillo Erythrocyte distribution width (RBC) [Ratio] 13.4 % Normal 11.0-15.0 [facility] Comment on above: Performed By: #### C MP, TSH #### [facility] [address] [place] [address] Dr. Cyn Hermosillo Hematocrit (Bld) [Volume fraction] 34.9 % Critically low 36.0-48.0 [facility] Comment on above: Performed By: #### C MP, TSH #### [facility] [address] [place] [address] Dr. Cyn Hermosillo Hemoglobin (Bld) [Mass/Vol] 11.4 g/dL Critically low 12.0-16.0 [facility] Comment on above: Performed By: #### C MP, TSH #### [facility] [address] [place] [address] Dr. Cyn Hermosillo IG # 0.02 10e3/ul Normal 0.00-0.03 [facility] Comment on above: Performed By: #### C MP, TSH #### [facility] [address] [place] [address] Dr. Cyn Hermosillo IG % 0.2 % Normal 0.0-0.5 [facility] Comment on above: Performed By: #### C MP, TSH #### [facility] [address] [place] [address] Dr. Cyn Hermosillo LYMPH # 3.2 103/ul Normal 1.2-3.8 [facility] Comment on above: Performed By: #### C MP, TSH #### [facility] [address] [place] [address] Dr. Cyn Hermosillo Lymphocytes/100 WBC (Bld) 35.9 % Normal 20.5-60.0 [facility] Comment on above: Performed By: #### C MP, TSH #### [facility] [address] [place] [address] Dr. Cyn Hermosillo MANUAL DIFF REQ NO Normal [facility] Comment on above: Performed By: #### C MP, TSH #### [facility] [address] [place] [address] Dr. Cyn Hermosillo MCH (RBC) [Entitic mass] 29.2 pg Normal 26.7-34.[address] [facility] Comment on above: Performed By: #### C MP, TSH #### [facility] [address] [place] [address] Dr. Cyn Hermosillo MCHC (RBC) [Mass/Vol] 32.7 g/dL Normal 29.9-35.2 [facility] Comment on above: Performed By: #### C MP, TSH #### [facility] [address] [place] [address] Dr. Cyn Hermosillo MCV (RBC) [Entitic vol] 89.3 fL Normal 81.0-99.[address] [facility] Comment on above: Performed By: #### C MP, TSH #### [facility] [address] [place] [address] Dr. Cyn Hermosillo MONO # 0.7 103/ul Normal 0.3-0.[address] [facility] Comment on above: Performed By: #### C MP, TSH #### [facility] [address] [place] [address] Dr. Cyn Hermosillo Monocytes/100 WBC (Bld) 8.2 % Normal 1.7-12.[address] [facility] Comment on above: Performed By: #### C MP, TSH #### [facility] [address] [place] [address] Dr. Cyn Hermosillo NEUT # 4.8 103/ul Normal 1.4-6.[address] [facility] Comment on above: Performed By: #### C MP, TSH #### [facility] [address] [place] [address] Dr. Cyn Hermosillo Neutrophils/100 WBC (Bld) 54.0 % Normal 43.0-75.[address] [facility] Comment on above: Performed By: #### C MP, TSH #### [facility] [address] [place] [address] Dr. Cyn Hermosillo Platelet mean volume (Bld) [Entitic vol] 11.9 fL Normal 9.5-13.[address] [facility] Comment on above: Performed By: #### C MP, TSH #### [facility] [address] [place] [address] Dr. Cyn Hermosillo PLT 242 103/ul Normal 150-[address] [facility] Comment on above: Performed By: #### C MP, TSH #### [facility] [address] [place] [address] Dr. Cyn Hermosillo RBC 3.91 106/ul Critically low 4.20-5.40 [facility] Comment on above: Performed By: #### C MP, TSH #### [facility] [address] [place] [address] Dr. Cyn Hermosillo WBC 8.9 103/ul Normal 4.0-11.[address] [facility] Comment on above: Performed By: #### C MP, TSH #### [facility] [address] [place] [address] Dr. Cyn Hermosillo [facility]07 SARS-CoV-2 (COVID-19) RNA SHELLIE+probe Ql (Unsp spec) Not detected Normal NOT DETECTED [facility] Comment on above: Result Comment: This test is not yet approved or cleared by the [place] FDA. When there are no FDA-approved or cleared tests available, and other criteria are met, FDA can make tests available under an emergency access mechanism called an Emergency Use Authorization (EUA). The EUA for this test is supported by the [employer] of Health and Human Service's (HHS's) declaration [...] SARS-CoV-2. Performed By: #### C VDTBH #### [facility] [address] [place] [address] Dr. Cyn Hermosillo PROF CHEM 8 (BAS METB)on Anion gap [Moles/Vol] 9.6 mmol/L Normal [facility] Comment on above: Performed By: #### C MP, TSH #### [facility] [address] [place] [address] Dr. Cyn Hermosillo Calcium [Mass/Vol] 8.6 mg/dL Normal 8.5-10.1 [facility] Comment on above: Performed By: #### C MP, TSH #### [facility] [address] [place] [address] Dr. Cyn Hermosillo Chloride [Moles/Vol] 102 mmol/L Normal 98-107 [facility] Comment on above: Performed By: #### C MP, TSH #### [facility] [address] [place] [address] Dr. Cyn Hermosillo CO2 [Moles/Vol] 27.1 mmol/L Normal 21.0-32.0 [facility] Comment on above: Performed By: #### C MP, TSH #### [facility] [address] [address] [address] Cyn Hermosillo Creatinine [Mass/Vol] 0.46 mg/dL Critically low 0.55-1.02 [facility] Comment on above: Performed By: #### C MP, TSH #### [facility] [address] [place] [address] Dr. Cyn Hermosillo EGFR-AF AUSTRALIAN >60 Normal >=60 [facility] Comment on above: Performed By: #### C MP, TSH #### [facility] [address] [place] [address] Dr. Cyn Hermosillo EGFR-NON AF AUSTRALIAN >60 Normal >=60 [facility] Comment on above: Performed By: #### C MP, TSH #### [facility] [address] [place] [address] Dr. Cyn Hermosillo Glucose [Mass/Vol] 115 mg/dL Critically high 74-106 [facility] Comment on above: Performed By: #### C MP, TSH #### [facility] [address] [place] [address] Dr. Cyn Hermosillo Potassium [Moles/Vol] 3.7 mmol/L Normal 3.5-5.1 [facility] Comment on above: Performed By: #### C MP, TSH #### [facility] [address] [place] [address] Dr. Cyn Hermosillo Sodium [Moles/Vol] 135 mmol/L Critically low 136-145 [facility] Comment on above: Performed By: #### C MP, TSH #### [facility] [address] [place] [address] Dr. Cyn Hermosillo Urea nitrogen [Mass/Vol] 15.0 mg/dL Normal 7.0-18.0 [facility] Comment on above: Performed By: #### C EDEN, TSH #### [facility] [address] [place] [address] Dr. Cyn Hermosillo Urea nitrogen/Creatinine [Mass ratio] 32.6 mg/mg Normal [facility] Comment on above: Performed By: #### C EDEN, TSH #### [facility] [address] [place] [address] Dr. Cyn Hermosillo TYPE AND SCREENon 08-21-2022 TYPE AND SCREEN Negative Normal [facility] Comment on above: Performed By: #### C EDEN, TSH #### [facility] [address] [place] [address] Dr. Cyn Hermosillo CBC AUTO DIFFon 07-06-2022 BASO # 0.1 103/ul Normal 0.0-0.1 [facility] Comment on above: Performed By: #### C EDEN, TSH #### [facility] [address] [place] [address] Dr. Cyn Hermosillo Basophils/100 WBC (Bld) 0.7 % Normal 0.2-2.0 [facility] Comment on above: Performed By: #### C EDEN, TSH #### [facility] [address] [place] [address] Dr. Cyn Hermosillo EO # 0.1 103/ul Normal 0.0-0.7 [facility] Comment on above: Performed By: #### C EDEN, TSH #### [facility] [address] [place] [address] Dr. Cyn Hermosillo Eosinophils/100 WBC (Bld) 0.6 % Critically low 0.9-7.0 [facility] Comment on above: Performed By: #### C EDEN, TSH #### [facility] [address] [place] [address] Dr. Cyn Hermosillo Erythrocyte distribution width (RBC) [Ratio] 13.2 % Normal 11.0-15.0 [facility] Comment on above: Performed By: #### C EDEN, TSH #### [facility] [address] [address] [address] yCn Hermosillo Hematocrit (Bld) [Volume fraction] 34.3 % Critically low 36.0-48.0 [facility] Comment on above: Performed By: #### C MP, TSH #### [facility] [address] [place] [address] Dr. Cyn Hermosillo Hemoglobin (Bld) [Mass/Vol] 11.4 g/dL Critically low 12.0-16.0 [facility] Comment on above: Performed By: #### C MP, TSH #### [facility] [address] [place] [address] Dr. Cyn Hermosillo IG # 0.04 10e3/ul Critically high 0.00-0.03 [facility] Comment on above: Performed By: #### C MP, TSH #### [facility] [address] [place] [address] Dr. Cyn Hermosillo IG % 0.4 % Normal 0.0-0.5 [facility] Comment on above: Performed By: #### C MP, TSH #### [facility] [address] [place] [address] Dr. Cyn Hermosillo LYMPH # 2.7 103/ul Normal 1.2-3.8 [facility] Comment on above: Performed By: #### C MP, TSH #### [facility] [address] [place] [address] Dr. Cyn Hermosillo Lymphocytes/100 WBC (Bld) 25.0 % Normal 20.5-60.0 [facility] Comment on above: Performed By: #### C MP, TSH #### [facility] [address] [place] [address] Dr. Cyn Hermosillo MANUAL DIFF REQ NO Normal [facility] Comment on above: Performed By: #### C MP, TSH #### [facility] [address] [place] [address] Dr. Cyn Hermosillo MCH (RBC) [Entitic mass] 30.2 pg Normal 26.7-34.0 [facility] Comment on above: Performed By: #### C MP, TSH #### [facility] [address] [place] [address] Dr. Cyn Hermosillo MCHC (RBC) [Mass/Vol] 33.2 g/dL Normal 29.9-35.[address] [facility] Comment on above: Performed By: #### C MP, TSH #### [facility] [address] [place] [address] Dr. Cyn Hermosillo MCV (RBC) [Entitic vol] 91.0 fL Normal 81.0-99.[address] [facility] Comment on above: Performed By: #### C MP, TSH #### [facility] [address] [place] [address] Dr. Cyn Hermosillo MONO # 0.7 103/ul Normal 0.3-0.[address] [facility] Comment on above: Performed By: #### C MP, TSH #### [facility] [address] [place] [address] Dr. Cyn Hermosillo Monocytes/100 WBC (Bld) 6.8 % Normal 1.7-12.[address] [facility] Comment on above: Performed By: #### C MP, TSH #### [facility] [address] [place] [address] Dr. Cyn Hermosillo NEUT # 7.2 103/ul Critically high 1.4-6.5 [facility] Comment on above: Performed By: #### C MP, TSH #### [facility] [address] [place] [address] Dr. Cyn Hermosillo Neutrophils/100 WBC (Bld) 66.5 % Normal 43.0-75.[address] [facility] Comment on above: Performed By: #### C MP, TSH #### [facility] [address] [place] [address] Dr. Cyn Hermosillo Platelet mean volume (Bld) [Entitic vol] 12.0 fL Normal 9.5-13.[address] [facility] Comment on above: Performed By: #### C MP, TSH #### [facility] [address] [place] [address] Dr. Cyn Hermosillo PLT 219 103/ul Normal 150-[address] [facility] Comment on above: Performed By: #### C MP, TSH #### [facility] [address] [address] [address] Cyn Hermosillo RBC 3.77 106/ul Critically low 4.20-5.40 [facility] Comment on above: Performed By: #### C MP, TSH #### [facility] [address] [address] [address] Cyn Hermosillo WBC 10.8 103/ul Normal 4.0-11.[address] [facility] Comment on above: Performed By: #### C MP, TSH #### [facility] [address] [address] [address] Cyn Hermosillo PREG HCG QUALon 07-06-2022 , QUAL Negative Normal NEGATIVE [facility] Comment on above: Performed By: #### C MP, TSH #### [facility] [address] [address] [address] Cyn Hermosillo Covid-19 PCR (CVDTBH)on 06-08 SARS-CoV-2 (COVID-19) RNA SHELLIE+probe Ql (Unsp spec) Not detected Normal NOT DETECTED [facility] Comment on above: Result Comment: This test is not yet approved or cleared by the [place] FDA. When there are no FDA-approved or cleared tests available, and other criteria are met, FDA can make tests available under an emergency access mechanism called an Emergency Use Authorization (EUA). The EUA for this test is supported by the [place] of Health and Human Service's (HHS's) declaration [...] SARS-CoV-2. Performed By: #### C VDTBH #### [facility] [address] [address] [address] Cyn Hermosillo MRI PELVIS WO W [...] JW JOHN Date: 2022-06-26 12:06 Normal [facility] MAMM SCREEN 3D MYKE CADon 06-19-2022 MAMM SCREEN 3D MYKE CAD Patient: MANJINDER BOB Exam Date: 06/19/2022 : 1975 Gender:F Ordering : DR MARY LOU COHEN . Admission #: [id number] Family : Order #: [id number] CLICK HERE TO VIEW EXAM RADIOLOGY REPORT [...] breast cancer at age 45. LOCATION: [facility] BREAST COMPOSITION: Heterogeneously dense,which may obscure small [...] LUMP SHOULD BE BIOPSIED. Dictated by: Cyrus Allen MD on 06/19/2022 at 13:45 Approved by: Cyrus Allen MD on 06/19/2022 at 13:46 Normal [facility] US PELVIS AND TRANSVAGon US PELVIS AND [...] by: JW JOHN Date: 2022-06-19 11:06 Normal [facility] PAP ACOG PANEL 2: 30 to 65on 06-04-2022 . . Normal [facility] Comment on above: Result Comment: Perf ormed at: BA Performed By: #### [id number] #### [facility] [address] [place] [address] Dr. Cyn Hermosillo Age Gdln ACOG Testing 30-65 Normal [facility] Comment on above: Performed By: #### [id number] #### [facility] [address] [place] [address] Dr. Cyn Hermosillo DIAGNOSIS: Comment Normal [facility] Comment on above: Result Comment: NEGA TIVE FOR INTRAEPITHELIAL LESION OR MALIGNANCY. CELLULAR CHANGES ASSOCIATED WITH INFLAMMATION ARE PRESENT. Performed at: BA Performed By: #### [id number] #### [facility] [address] [place] [address] Dr. Cyn Hermosillo HPV Aptima Negative Normal Negative [facility] Comment on above: Result Comment: This nucleic acid amplification test detects fourteen high-risk HPV types (16,18,31,33,35,39,45,51,52,56,58,59,66,68) without differentiation. Performed at: =G Performed By: #### [id number] #### [facility] [address] [place] [address] Dr. Cyn Hermosillo Methodology: Comment Normal [facility] Comment on above: Result Comment: This liquid based ThinPrep(R) pap test was screened with the use of an image guided system. Performed at: WB Performed By: #### [id number] #### [facility] [address] [place] [address] Dr. Cyn Hermosillo Note: Comment Normal [facility] Comment on above: Result Comment: The Pap smear is a screening test designed to aid in the detection of premalignant and malignant conditions of the uterine cervix. It is not a diagnostic procedure and should not be used as the sole means of detecting cervical cancer. Both false-positive and false-negative reports do occur. . Performed at: WB Performed By: #### [id number] #### [facility] [address] [place] [address] Dr. Cyn Hermosillo Performed by: Comment Normal [facility] Comment on above: Result Comment: Ramos Leo, Nurse'S Companion Performed at: BA Performed By: #### [id number] #### [facility] [address] [place] [address] Dr. Cyn Hermosillo Specimen adequacy: Comment Normal [facility] Comment on above: Result Comment: Sati sfactory for evaluation. Endocervical and/or squamous metaplastic cells (endocervical component) are present. Performed at: BA Performed By: #### [id number] #### [facility] [address] [place] [address] Dr. Cyn Hermosillo T4 LABCORPon 03-02-2022 T4 [Mass/Vol] 8.2 ug/dL Normal 4.5-12.0 [facility] Comment on above: Performed By: #### T 4LC #### [facility] [address] [place] [address] Dr. Cyn Hermosillo CBC AUTO DIFFon 02-28-2022 BASO # 0.1 103/ul Normal 0.0-0.1 [facility] Comment on above: Performed By: #### C BC #### [facility] [address] [place] [address] Dr. Cyn Hermosillo Basophils/100 WBC (Bld) 0.7 % Normal 0.2-2.0 [facility] Comment on above: Performed By: #### C BC #### [facility] [address] [place] [address] Dr. Cyn Hermosillo EO # 0.1 103/ul Normal 0.0-0.7 [facility] Comment on above: Performed By: #### C BC #### [facility] [address] [place] [address] Dr. Cyn Hermosillo Eosinophils/100 WBC (Bld) 0.7 % Critically low 0.9-7.0 [facility] Comment on above: Performed By: #### C BC #### [facility] [address] [place] [address] Dr. Cyn Hermosillo Erythrocyte distribution width (RBC) [Ratio] 13.3 % Normal 11.0-15.0 [facility] Comment on above: Performed By: #### C BC #### [facility] [address] [place] [address] Dr. Cyn Hermosillo Hematocrit (Bld) [Volume fraction] 36.4 % Normal 36.0-48.0 [facility] Comment on above: Performed By: #### C BC #### [facility] [address] [place] [address] Dr. Cyn Hermosillo Hemoglobin (Bld) [Mass/Vol] 11.8 g/dL Critically low 12.0-16.0 [facility] Comment on above: Performed By: #### C BC #### [facility] [address] [place] [address] Dr. Cyn Hermosillo IG # 0.03 10e3/ul Normal 0.00-0.03 [facility] Comment on above: Performed By: #### C BC #### [facility] [address] [place] [address] Dr. Cyn Hermosillo IG % 0.3 % Normal 0.0-0.5 [facility] Comment on above: Performed By: #### C BC #### [facility] [address] [place] [address] Dr. Cyn Hermosillo LYMPH # 3.2 103/ul Normal 1.2-3.8 [facility] Comment on above: Performed By: #### C BC #### [facility] [address] [place] [address] Dr. Cyn Hermosillo Lymphocytes/100 WBC (Bld) 32.7 % Normal 20.5-60.0 [facility] Comment on above: Performed By: #### C BC #### [facility] [address] [place] [address] Dr. Cyn Hermosillo MANUAL DIFF REQ NO Normal [facility] Comment on above: Performed By: #### C BC #### [facility] [address] [place] [address] Dr. Cyn Hermosillo MCH (RBC) [Entitic mass] 29.4 pg Normal 26.7-34.0 [facility] Comment on above: Performed By: #### C BC #### [facility] [address] [address] [address] Cyn Hermosillo MCHC (RBC) [Mass/Vol] 32.4 g/dL Normal 29.9-35.2 [facility] Comment on above: Performed By: #### C BC #### [facility] [address] [address] [address] Cyn Hermosillo MCV (RBC) [Entitic vol] 90.8 fL Normal 81.0-99.0 [facility] Comment on above: Performed By: #### C BC #### [facility] [address] [place] [address] Dr. Cyn Hermosillo MONO # 0.7 103/ul Normal 0.3-0.8 [facility] Comment on above: Performed By: #### C BC #### [facility] [address] [place] [address] Dr. Cyn Hermosillo Monocytes/100 WBC (Bld) 7.2 % Normal 1.7-12.0 [facility] Comment on above: Performed By: #### C BC #### [facility] [address] [place] [address] Dr. Cyn Hermosillo NEUT # 5.7 103/ul Normal 1.4-6.5 [facility] Comment on above: Performed By: #### C BC #### [facility] [address] [place] [address] Dr. Cyn Hermosillo Neutrophils/100 WBC (Bld) 58.4 % Normal 43.0-75.[address] [facility] Comment on above: Performed By: #### C BC #### [facility] [address] [place] [address] Dr. Cyn Hermosillo Platelet mean volume (Bld) [Entitic vol] 11.9 fL Normal 9.5-13.[address] [facility] Comment on above: Performed By: #### C BC #### [facility] [address] [place] [address] Dr. Cyn Hermosillo PLT 217 103/ul Normal 150-[address] [facility] Comment on above: Performed By: #### C BC #### [facility] [address] [address] [address] Cyn Hermosillo RBC 4.01 106/ul Critically low 4.20-5.40 [facility] Comment on above: Performed By: #### C BC #### [facility] [address] [address] [address] Cyn Hermosillo WBC 9.8 103/ul Normal 4.0-11.0 [facility] Comment on above: Performed By: #### C BC #### [facility] [address] [address] [address] Cyn Hermosillo PROF 14(COMP METB)on 022 Albumin [Mass/Vol] 3.6 g/dL Normal 3.4-5.0 [facility] Comment on above: Performed By: #### C MP, TSH #### [facility] [address] [place] [address] Dr. Cyn Hermosillo Albumin/Globulin [Mass ratio] 1.0 {ratio} Normal [facility] Comment on above: Performed By: #### C MP, TSH #### [facility] [address] [place] [address] Dr. Cyn Hermosillo ALP [Catalytic activity/Vol] 59 U/L Normal 46-116 [facility] Comment on above: Performed By: #### C MP, TSH #### [facility] [address] [place] [address] Dr. Cyn Hermosillo ALT [Catalytic activity/Vol] 16 U/L Normal 14-59 [facility] Comment on above: Performed By: #### C MP, TSH #### [facility] [address] [place] [address] Dr. Cyn Hermosillo Anion gap [Moles/Vol] 11.0 mmol/L Normal [facility] Comment on above: Performed By: #### C MP, TSH #### [facility] [address] [address] [address] Cyn Hermosillo AST [Catalytic activity/Vol] U/L Critically low 15-37 [facility] Comment on above: Performed By: #### C MP, TSH #### [facility] [address] [address] [address] Cyn Hermosillo Bilirubin [Mass/Vol] 0.2 mg/dL Normal 0.2-1.0 [facility] Comment on above: Performed By: #### C MP, TSH #### [facility] [address] [address] [address] Cyn Hermosillo Calcium [Mass/Vol] 8.5 mg/dL Normal 8.5-10.1 [facility] Comment on above: Performed By: #### C MP, TSH #### [facility] [address] [address] [address] Cyn Hermosillo Chloride [Moles/Vol] 104 mmol/L Normal 98-107 [facility] Comment on above: Performed By: #### C MP, TSH #### [facility] [address] [place] [address] Dr. Cyn Hermosillo CO2 [Moles/Vol] 27.9 mmol/L Normal 21.0-32.0 [facility] Comment on above: Performed By: #### C MP, TSH #### [facility] [address] [place] [address] Dr. Cyn Hermosillo Creatinine [Mass/Vol] 0.49 mg/dL Critically low 0.55-1.02 [facility] Comment on above: Performed By: #### C MP, TSH #### [facility] [address] [place] [address] Dr. Cyn Hermosillo EGFR-AF AUSTRALIAN >60 Normal >=60 [facility] Comment on above: Performed By: #### C MP, TSH #### [facility] [address] [place] [address] Dr. Cyn Hermosillo EGFR-NON AF AUSTRALIAN >60 Normal >=60 [facility] Comment on above: Performed By: #### C MP, TSH #### [facility] [address] [place] [address] Dr. Cyn Hermosillo Globulin (S) [Mass/Vol] 3.7 g/dL Normal [facility] Comment on above: Performed By: #### C MP, TSH #### [facility] [address] [address] [address] Cyn Hermosillo Glucose [Mass/Vol] 109 mg/dL Critically high 74-106 [facility] Comment on above: Performed By: #### C MP, TSH #### [facility] [address] [address] [address] Cyn Hermosillo Potassium [Moles/Vol] 3.9 mmol/L Normal 3.5-5.1 [facility] Comment on above: Performed By: #### C MP, TSH #### [facility] [address] [address] [address] Cyn Hermosillo Protein [Mass/Vol] 7.3 g/dL Normal 6.4-8.2 [facility] Comment on above: Performed By: #### C MP, TSH #### [facility] [address] [place] [address] Dr. Cyn Hermosillo Sodium [Moles/Vol] 139 mmol/L Normal 136-145 [facility] Comment on above: Performed By: #### C MP, TSH #### [facility] [address] [address] [address] Cyn Hermosillo Urea nitrogen [Mass/Vol] 15.0 mg/dL Normal 7.0-18.0 [facility] Comment on above: Performed By: #### C MP, TSH #### [facility] [address] [place] [address] Dr. Cyn Hermosillo Urea nitrogen/Creatinine [Mass ratio] 30.6 mg/mg Normal [facility] Comment on above: Performed By: #### C MP, TSH #### [facility] [address] [place] [address] Dr. Cyn Hermosillo TSHon 02-28-2022 TSH 0.399 uIU/mL Normal 0.358-3.740 [facility] Comment on above: Performed By: #### C MP, TSH #### [facility] [address] [place] [address] Dr. Cyn Hermosillo TSH RANGE SEE BELOW Normal [facility] Comment on above: Result Comment: <0.3 4 UIU/ml HYPERTHYROID 0.34-5.60 UIU/ml EUTHYROID >5.60 UIU/ml HYPOTHYROID Performed By: #### C MP, TSH #### [facility] [address] [place] [address] Dr. Cyn Hermosillo Vital Signs Date Time Vital Sign Value Performing Clinician Faci lity 11-19-2024 09:23-0500 Body height 165.1 cm Richelle Pardo MD Work Phone: [facility] 11-19-2024 09:23-0500 Body mass index (BMI) [Ratio] 26.96 kg/m2 Richelle Pardo MD Work Phone: [facility] 11-19-2024 09:23-0500 Body weight 73.48 kg Richelle Pardo MD Work Phone: [facility] 11-19-2024 09:23-0500 Heart rate 94 /min Richelle Pardo MD Work Phone: [facility] 11-19-2024 09:23-0500 SaO2% (BldA) [Mass fraction] 91 % Richelle Pardo MD Work Phone: [facility] Encounters Encounter Date Encounter Type Care Provider Facility Start: 12-24-2024 End: 12-24-2024 Bamboo flowsheet Mary Lou Vicki DO Work Phone: [facility] Start: 12-24-2024 End: 12-29-2024 Bamboo flowsheet Mary Lou Vicki DO Work Phone: [facility] Start: 12-24-2024 End: 12-29-2024 Clinisync Result Encounter Mary Lou Vicki DO Work Phone: [facility] External Department Unsolicited Start: 12-24-2024 End: 12-24-2024 ambulatory MARY LOU VICKI Not Available Start: 11-19-2024 End: 11-19-2024 Bamboo flowsheet Richelle Pardo MD Work Phone: [facility] Start: 11-19-2024 End: 11-19-2024 Bamboo flowsheet Richelle Pardo MD Work Phone: [facility] Start: 11-19-2024 End: 11-19-2024 Office outpatient visit 25 minutes Richelle Pardo MD Work Phone: [facility] Comment on above: Marina's disease (CMS/HCC) (Primary Dx); Encounter for dietary consultation; Vitamin D deficiency; Autoimmune thyroiditis (CMS/HCC) Start: 11-19-2024 End: 11-19-2024 ambulatory RICHELLE PARDO Not Available Start: 11-13-2024 End: 11-14-2024 Orders Only Richelle Pardo MD Work Phone: [facility] External Department Unsolicited Start: 08-03-2024 End: 08-03-2024 ambulatory DO SAUL P HOUSE Facility: [facility] Start: 07-21-2024 End: 07-21-2024 ambulatory DO SAUL P HOUSE Facility: [facility] Start: 02-25-2024 End: 02-25-2024 ambulatory DO SAUL P HOUSE Facility: [facility] Start: 02-05-2024 End: 02-05-2024 ambulatory NON STAFF Facility:[facility] Start: 12-09-2023 End: 12-09-2023 ambulatory DO SAUL P HOUSE Facility: [facility] Start: 10-24-2023 End: 10-24-2023 ambulatory Evans Catherine MD Facility: [facility] Start: 10-01-2023 End: 10-01-2023 ambulatory SAUL P HOUSE Facility: [facility] Start: 09-24-2023 End: 09-24-2023 ambulatory SAUL P HOUSE Facility: [facility] Start: 08-24-2022 Encounter for preprocedural laboratory examination DR MARY LOU COHEN . [facility] Start: 08-24-2022 End: 08-25-[address] MARY LOU COHEN . Facility:[facility] Start: 08-21-2022 End: 08-22-[address] MARY LOU COHEN . Facility:[facility] Start: 08-21-2022 End: 08-22-2022 Encounter for preprocedural laboratory examination DR MARY LOU COHEN . Facility:[facility] Start: 08-20-2022 Encounter for other preprocedural examination DR MARY LOU COHEN . [facility] Start: 08-16-2022 End: 08-17-[address] SAUL LIZ Facility:[facility] Start: 08-16-2022 End: 08-17-2022 Encounter for other preprocedural examination DR SAUL LIZ Facility:[facility] Start: 07-06-2022 End: 07-06-[address] MARY LOU COHEN . Facility:[facility] Start: 07-05-2022 End: 07-06-[address] MARY LOU COHEN . Facility:[facility] Start: 06-26-2022 End: 06-27-[address] MARY LOU COHEN . Facility:[facility] Start: 06-19-2022 End: 06-20-2022 ambulatory CYRUS ALEXANDRIA Facility:[facility] Start: 05-29-2022 End: 05-29-[address] MARY LOU COHEN . Facility:[facility] Start: 02-28-2022 End: 03-01-[address] SAUL LIZ Facility:[facility] Procedures Date Procedure Procedure Detail Performing Clinician Start: 12-24-2024 IGP,APTIMA HPV,AGE GDLN Mary Lou Cohen DO Work Phone: Start: 11-13-2024 Assay of free thyroxine Richelle Pardo MD Work Phone: Start: 07-16-2023 Mammography Richelle lerma MD Work Phone: Start: 05-29-2022 Microscopic observat ion [Identifier] in Cervix by Cyto stain Richelle Pardo MD Work Phone: Plan of Treatment Date Care Activity Detail Author Start: 12-30-2025 End: 12-30-2025 Patient encounter procedure 12/30/2025 10:00 AM EDT Office Visit [facility] [address] [place] [id number] Mary Lou Cohen DO [address] [place] [address] [facility] Start: 11-18-2025 End: 11-18-2025 Patient encounter procedure 11/18/2025 10:00 AM EST Office Visit [facility] [address] [place] [phone] Richelle Pardo MD [address] [place] [address] [facility] Start: 05-29-2025 Screening for malignant neoplasm of cervix [facility] Start: 12-24-2024 End: 12-24-2024 Patient encounter procedure [facility] Comment on above: Arrived Start: 11-19-2024 End: 11-19-2025 Thyrotropin [Units/volume] in Serum or Plasma TSH Lab Routine Marina's disease (CMS/HCC) Expected: 11/19/2024 (Approximate), Expires: 11/19/2025 [facility] Comment on above: Expected: 11/19/2024 (Approximate), Expi res: 11/19/2025 Start: 11-19-2024 End: 11-19-2025 Thyroxine (T4) free [Mass/volume] in Serum or Plasma T4, free Lab Routine Marina's disease (CMS/HCC) Expected: 11/19/2024 (Approximate), Expires: 11/19/2025 [facility] Comment on above: Expected: 11/19/2024 (Approximate), Expi res: 11/19/2025 Start: 11-19-2024 End: 11-19-2025 Triiodothyronine (T3) Free [Mass/volume] in Serum or Plasma T3, free Lab Routine Marina's disease (CMS/HCC) Expected: 11/19/2024 (Approximate), Expires: 11/19/2025 [facility] Work Phone: Comment on above: Expected: 11/19/2024 (Approximate), Expi res: 11/19/2025 Start: 11-19-2024 End: 11-19-2024 Patient encounter procedure [facility] Comment on above: Arrived Start: 07-16-2024 Screening for malignant neoplasm of breast Mammogram [facility] Start: 06-07-2024 Influenza vaccination Influenza Vaccine (#1) [facility] Start: 2007 Screening for malignant neoplasm of cervix HPV/Cotest [facility] Start: 1977 Screening for malignant neoplasm of colon [facility] Immunizations Immunization Date Immunization Notes Care Provider Justus yoder 07-30-2023 influenza, injectabl e, quadrivalent, preservative free Richelle Pardo MD Work Phone: [facility] 07-30-2023 influenza virus vacc ine, unspecified formulation Richelle Pardo MD Work Phone: [facility] 08-21-2022 Influenza, injectabl e, Madin Kristina Canine Kidney, preservative free, quadrivalent Richelle Pardo MD Work Phone: [facility] 08-25-2021 Influenza, injectabl e, Madin Kristina Canine Kidney, preservative free, quadrivalent Richelle Pardo MD Work Phone: [facility] 08-10-2020 influenza, injectabl e, quadrivalent, preservative free Richelle Pardo MD Work Phone: [facility] 10-16-2019 Influenza, injectabl e, Madin [place] Canine Kidney, preservative free, quadrivalent Richelle Pardo MD Work Phone: [facility] 07-19-2017 influenza, injectabl e, quadrivalent, preservative free Richelle Pardo MD Work Phone: [facility] 07-20-2015 influenza, seasonal, injectable Richelle Pardo MD Work Phone: [facility] 06-14-2015 tetanus toxoid, redu vince diphtheria toxoid, and acellular pertussis vaccine, adsorbed Richelle Pardo MD Work Phone: [facility] 07-05-2014 influenza, seasonal, injectable, preservative free Richelle Pardo MD Work Phone: [facility] 02-18-2012 tetanus toxoid, redu vince diphtheria toxoid, and acellular pertussis vaccine, adsorbed Richelle Pardo MD Work Phone: [facility] Payers Date Payer Category Payer Self-pay 2018 Private Health Insurance [id number] 1977 Unknown [id number] 2.16.84 0.1.558827.3.579.2.593 1977 Unknown [id number] 2.16.84 0.1.568016.3.579.2.593 1977 Unknown [id number] 2.16.84 0.1.244379.3.579.2.593 1977 Unknown [id number] 2.16.84 0.1.024161.3.579.2.593 1977 Unknown [id number] 2.16.84 0.1.437762.3.579.2.593 1977 Unknown [id number] 2.16.84 0.1.570061.3.579.2.593 1977 Unknown [id number] 2.16.84 0.1.180332.3.579.2.593 1977 Unknown [id number] 2.16.84 0.1.929015.3.579.2.593 1977 Unknown [id number] 2.16.84 0.1.984541.3.579.2.593 1977 Unknown [id number] 2.16.8 40.1.228040.3.579.2.718 1977 Unknown [id number] 2.16.8 40.1.665591.3.579.2.718 1977 Unknown [id number] 2.16.8 40.1.628700.3.579.2.718 1977 Unknown [id number] 2.16.8 40.1.478093.3.579.2.718 1977 Unknown [id number] 2.16.8 40.1.082340.3.579.2.718 1977 Unknown [id number] 2.16.8 40.1.847960.3.579.2.8 1977 Unknown [id number] 2.16.8 40.1.484812.3.579.2.718 1977 Unknown [id number] 2.16.84 0.1.724519.3.579.2.9 1977 Unknown [id number] 2.16.84 0.1.632743.3.579.2.1259 1959 Unknown [id number] Unknown [id number] 2.16.8 40.1.117397.3.579.2.531 Social History Date Type Detail Facility Start: 06-05-2023 Tobacco smoking stat [facility] Never smoked tobacco [facility] Start: 09-21-2024 End: 11-19-2024 Alcoholic beverage intake Lifetime non-drinker (finding) [facility] Start: 09-21-2024 End: 11-19-2024 History of Social function [facility] Start: 09-21-2024 End: 11-19-2024 Tobacco use panel [facility] Start: 1975 Sex assigned at Not on file [facility] Start: 06-11-2023 Sexual orientation Heterosexual (fin ding) [facility] History of Present illness Narrative 11-19-2024 Richelle [...] 07:49:35 EDT From: SAUL LIZ DO To: [id number] Sent: 12/19/2023 07:49:35 EDT Subject: Medication Management Approved Order:atomoxetine (Strattera 100 mg oral capsule) TAKE 1 CAPSULE BY MOUTH EVERY DAY IN THE MORNING Qty: 90 cap(s) Days Supply: 90 Refills: 1 Substitutions Allowed Route To Pharmacy - [place] [id number] Note from Pharmacy: REQUEST FOR 90 DAYS PRESCRIPTION. DX Code Needed Signed by SAUL LIZ DO Cancelled: Discontinue:atomoxetine (atomoxetine 100 mg oral capsule) Signed by SAUL LIZ DO From: [place] [id number] To: SAUL LIZ DO Sent: December 19, [...] FOR 90 DAYS PRESCRIPTION. DX Code Needed [facility] Clinical Note 08-24-2022 Note Date & Type Note Facility 08-24-2022 Note OPERATIVE NOTE OPERATION DATE: 09/20/2022 PROCEDURE: [place] assisted laparoscopic hysterectomy, bilateral salpingectomy with cystoscopy. PREOPERATIVE DIAGNOSIS: Abnormal uterine bleeding, dysmenorrhea, pelvic pain, Mittelschmerz thickened endometrium. POSTOPERATIVE DIAGNOSIS: Abnormal uterine bleeding, dysmenorrhea, pelvic pain, Mittelschmerz thickened endometrium. ANESTHESIA: General. SURGEON: Mary Lou Cohen D.O. CANDLEMAKING LABORER: ESTEFANY Navarro URINE OUTPUT: Yellow and clear. [...] Anesthesia first. Patient tolerated procedure well. [facility] Clinical Note 07-06-2022 Note Date & Type Note Facility 07-06-2022 Note OPERATIVE NOTE OPERATION DATE: 07/06/2022 PROCEDURE: D AND C hysteroscopy. PREOPERATIVE DIAGNOSIS: Menorrhagia, thickened endometrial lining. POSTOPERATIVE DIAGNOSIS: Menorrhagia, thickened endometrial lining. ANESTHESIA: General. SURGEON: Mary Lou Cohen D.O. CANDLEMAKING LABORER: None. BLOOD LOSS: 5 mL. FINDINGS: Normal [...] the Recovery Room in stable condition. [facility] Evaluation note Note Date & Type Note Facility Evaluation note Diagnosis Marina's disease (CMS/HCC)- Primary Chronic lymphocytic thyroiditis Encounter for dietary consultation Vitamin D deficiency Autoimmune thyroiditis (CMS/HCC) documented in this encounter [facility] Summary Purpose Family History No Family History Records FoundNo Family History Records FoundNo Family History Records FoundNo Family History Records Found Advance Directives No Advanced Directives Records FoundNo Advanced Directives Records FoundNo Advanced Directives Records FoundNo Advanced Directives Records Found Additional Source Comments INFORMATION SOURCE (unrecogn ized section and content) DATE CREATED AUTHOR 02/19/2023 [facility] DATE CREATED AUTHOR AUTHOR'S ORGANIZ ATION 03/18/2024 [facility] DATE CREATED AUTHOR AUTHOR'S ORGANIZ ATION 08/29/2024 [facility] DATE CREATED AUTHOR AUTHOR'S ORGANIZ ATION 12/26/2024 [facility] EPIC Reason for Visit (unrecogniz [...] BE BASED ON THE PRIMARY CLINICAL RECORDS. [employer] provides no warranty or guarantee of the accuracy or completeness of information in this document.
== END 2024-12-31 10:54 | disposition home or self-care (01) ==
LOC: MAMMO 10:53
PROVIDERS: Visit Provider Obstetrics & Gynecology
DX: Z12.31 Encounter for screening mammogram for malignant neoplasm of breast (principal); Z80.3 Family history of malignant neoplasm of breast
CPT/HCPCS: 77063; 77067